=== PATIENT | male | born 1950 | race Caucasian/White ===

== ENCOUNTER 2021-01-28 08:37 | Outpatient (REF) | payer MEDICARE, SELFPAY ==
[2021-01-28 10:18] LABS: MANUAL DIFF FLAG NO
[2021-01-28 10:42] LABS: Basophils Percent Auto 0.7 % (0-2); Eosinophils Absolute Auto 0.1 X10*3/uL (0.0-0.4); Eosinophils Percent Auto 1.7 % (0-4); Hemoglobin 15.3 g/dl (14.0-18.0); Imm Gran Abs Auto 0.02 X10*3/uL (0.00-0.03); Imm Gran Pct Auto 0.4 % (0.0-0.4); Lymphocytes Absolute Auto 1.9 X10*3/uL (1.2-4.9); Lymphocytes Percent Auto 35.6 % (20-40); Mean Corpuscular HGB Conc 33.3 g/dl (31.0-36.0); Mean Corpuscular Hemoglobin 30.5 pg (27.0-33.0); Mean Corpuscular Volume 91.6 fL (80-98); Mean Platelet Volume 10.2 fL (9.4-12.4); Monocytes Absolute Auto 0.5 X10*3/uL (0.1-1.2); Monocytes Percent Auto 9.7 % (2-11); Neutrophils Absolute Auto 2.8 X10*3/uL (2.0-8.3); Neutrophils Percent Auto 51.9 % (45-73); Platelet Count 259 X10*3/uL (160-400); Red Blood Count 5.02 X10*6/uL (4.60-5.80); Red Cell Distribution Width 13.4 % (11.0-16.0); White Blood Count 5.4 X10*3/uL (4.8-10.8)
[2021-01-28 10:52] LABS: Alanine Aminotransferase 21 U/L (0-40); Albumin Level 4.7 g/dL (3.5-5.0); Alkaline Phosphatase 93 U/L (39-117); Anion Gap 14 (12-20); Aspartate Amino Transferase 23 U/L (5-37); Bilirubin Total 3.2 mg/dL (0.0-1.0); Blood Urea Nitrogen 11 mg/dL (9-16); Calcium 9.6 mg/dL (8.4-10.2); Carbon Dioxide 29 mmol/L (22-29); Chloride 102 mmol/L (96-108); Cholesterol 204 mg/dL; Estimated Glomerular Filt Rate > 60; Glucose Fasting 101 mg/dL (60-99); HDL Cholesterol 67 mg/dL; LDL Cholesterol Calculated 117 mg/dl; Potassium 4.3 mmol/L (3.3-5.1); Sodium 141 mmol/L (135-145); Total Protein 7.2 g/dL (6.5-8.0); Triglycerides 101 mg/dL
[2021-01-28 11:13] LABS: Prostate Specific Antigen 1.64 ng/mL (<0.05-4.0); Thyroid Stimulating Hormone 9.12 uIU/mL (0.32-4.0)
== END 2021-01-28 08:38 | disposition home or self-care (01) ==
LOC: HO.LAB 08:37
PROVIDERS: PCP Internal Medicine; Visit Provider Internal Medicine
DX: E78.5 Hyperlipidemia, unspecified (principal)
CPT/HCPCS: 36415; 80053; 80061; 84153; 84443; 85025

== ENCOUNTER 2021-02-25 09:51 | Outpatient (REF) | payer MEDICARE, SELFPAY ==
--- NOTE | ~2021-02-25 | XR_ITS ---
EXAMINATION: XR SHOULDER, RIGHT CLINICAL INFORMATION: Pain COMPARISON: None TECHNIQUE: AP external rotation, Grashey, scapular Y, and axillary views of the right shoulder. FINDINGS: Bone alignment is normal. No fracture or dislocation is seen. The glenohumeral joint is normal. There is arthritis at the acromioclavicular joint. Soft tissues are normal. XR/XR shoulder RT min 2V IMPRESSION: Arthritis at the acromioclavicular joint.
== END 2021-02-25 09:52 | disposition home or self-care (01) ==
LOC: HO.XRAY 09:51
PROVIDERS: PCP Internal Medicine; Visit Provider Internal Medicine
DX: M25.551 Pain in right hip (principal)
CPT/HCPCS: 73030

== ENCOUNTER 2021-05-09 10:00 | Outpatient (RCR) | payer MEDICARE, SELFPAY ==
--- NOTE | 2021-04-07 09:36 | MHC.PT.EP ---
[facility] [place] Office [place] Office [place] Office [address] [phone] F: [phone] F: [phone] F: [phone] F: [phone] Physical Therapy Plan of Care Date of Evaluation: Date of Surgery: Diagnosis: Pain in R shoulder Assessment: Pt is a 71 y/o male referred to PT for eval and treat of R shoulder pain who presents with signs and Sx consistent with R shoulder dysfunction resulting in decreased tolerance for reaching his neck neck for hygiene and dressing, pushing/ pulling objects of weight, dressing pull overs, and reaching high shelves secondary to decreased R shoulder ROM and strength, decreased posture, increased tissue tension and pain. Pt is deemed an appropriate candidate to receive skilled PT in order to address his physical limitations to improve his functional ability. Frequency and Duration: The patient will be seen 2 x / wk x 5 wks. Short Term Goals: Initiate HEP Improve R shoulder abd AROM to > 149 degrees; initial: 110. Prison Goals: I with HEP. Pt will demonstrate managed Sx placing objects on high shelf. Pt will improve R shoulder abd MMT to > 4/5 MMT. Pt will be able to reach his neck for hygiene and dressing with managed Sx; initial: 6/10 pain. Treatment Plan: Modalities to reduce pain, spasms and effusion. Manual therapy to restore motion and function. Therapeutic exercise to improve strength and flexibility. Neuromuscular re-education for posture and balance. Therapeutic activities to return to functional activities of daily living. Electronically signed by: Cezar Hess PT Please sign and return to therapist. Thank you for your referral.
--- NOTE | 2021-06-07 18:05 | MHC.PT.DC ---
[facility] [place] Office [place] Office [place] Office [address] [phone] F: [phone] F: [phone] F: [phone] F: [phone] Physical Therapy Discharge Report Diagnosis: Pain in R shoulder Date of Surgery: Date of Evaluation: 03/30/21 Date of Discharge: Treatments to Date: 10 Cancellations to Date: No Shows to Date: Discharge Status: Improved Function Independent with HEP Discharge Summary: Pt persists with decreased shoulder flexion but this improved with pulleys in flexion. Pt reports reaching behind his back and reaching into adduction are hard and painful. Reviewed exercises and educated on DC. Electronically signed by: Cezar Hess PT Please sign and return to therapist. Thank you for your referral.
== END 2021-06-07 18:06 | disposition home or self-care (01) ==
LOC: HO.PTCHIC 10:00
PROVIDERS: PCP Internal Medicine; Visit Provider Internal Medicine
DX: M25.511 Pain in right shoulder (principal)
CPT/HCPCS: 97110; 97140; 97161

== ENCOUNTER 2021-06-23 14:10 | Outpatient (REF) | payer MEDICARE, SELFPAY | END 2021-06-23 14:11 | disposition home or self-care (01) | LOC: HO.LNP 14:10 | PROVIDERS: Visit Provider Hospitalist | DX: Z20.822 Contact with and (suspected) exposure to COVID-19 (principal); J01.90 Acute sinusitis, unspecified | CPT/HCPCS: U0003; U0005 ==

== ENCOUNTER 2022-01-25 07:59 | Day surgery (SDC) | payer MEDICARE, SELFPAY ==
[2022-01-17 14:18] VITALS: BMI 23.6
--- NOTE | 2022-01-24 08:44 | P.CONAN_ITS ---
Documented by User: Ana Del Cid NP 01/24/22 08:44 HPI - Anesthesia Eval Consult details Narrative: 71yo M for Upper Endoscopy and Colonoscopy PMFSH Active Problems Active Problems: All Active Problems (Updated 01/17/22 @ 14:11 by Gena Kuhn RN) Hypertension (Acute) Hyperlipidemia (Acute) Adult general medical exam (Acute) Acute sinusitis (Acute) Screening for colon cancer (Acute) Hypothyroidism (Acute) Past Medical History Medical History Malagon's esophagus GERD (gastroesophageal reflux disease) History of kidney stones HTN (hypertension) Hyperlipidemia Hypothyroidism Screening for colon cancer Family History Family History Father Medical history unknown Mother Medical history unknown Family/Other Prostate cancer Colon polyps Surgical History Surgical History History of appendectomy History of colonoscopy History of inguinal hernia repair Hx of esophagogastroduodenoscopy Social History Social History Alcohol intake: current Alcohol intake frequency: a few times a month Patient Tobacco Use Status: Former Tobacco user Quit Date: 1993 Tobacco use type: Cigarette Use of substances other than those prescribed or required for medical reasons: No Are you DNR?: No Advance Directives: No Advance Directives Information Provided: Yes Meds Allergies Allergy/AdvReac Type Severity Reaction Status Date / Time lisinopril Allergy Unknown cough Verified 06/23/21 11:27 Exam Exam Date and Time: January 24, 2022 0844 Height,Weight and Vital Signs: Height 5 ft 10 in Weight 74.843 kg Assessment and Plan Assessment Anesthesia Assessment: Chart Reviewed Documented by User: Boone Haskins MD 01/25/22 10:11 HPI - Anesthesia Eval Consult details Narrative: 71yo M for Upper Endoscopy and Colonoscopy LAst night got nauseated and vomited from the prep . Called the EMS , felt better after the vomiting . As per the patient EMS checked the vitals which were stable . Asymptomatic after that . Feels back to baseline this AM . We will give IV fluids and proceed with the procedure . REPLACED BY [facility] Past Medical History Medical History Malagon's esophagus GERD (gastroesophageal reflux disease) History of kidney stones HTN (hypertension) Hyperlipidemia Hypothyroidism Screening for colon cancer Functional capacity: independent ambulation Family History Family History Father Medical history unknown Mother Medical history unknown Family/Other Prostate cancer Colon polyps Family history of problems with anesthesia: No Surgical History Surgical History History of appendectomy History of colonoscopy History of inguinal hernia repair Hx of esophagogastroduodenoscopy History of Problems with Anesthesia: No Social History Social History Alcohol intake: current Alcohol intake frequency: a few times a month Patient Tobacco Use Status: Former Tobacco user Quit Date: 1993 Tobacco use type: Cigarette Use of substances other than those prescribed or required for medical reasons: No Are you DNR?: No Advance Directives: No Advance Directives Information Provided: Yes Meds Allergies Allergy/AdvReac Type Severity Reaction Status Date / Time lisinopril Allergy Unknown cough Verified 06/23/21 11:27 Exam Airway Mallampati Class: II TM Dist: >3cm Neck ROM: Full Loose/Missing/Broken Teeth: Yes (Chipped teeth , crowns . ) Heart: S1, S2 Lungs: b/l breath sounds Assessment and Plan Assessment Anesthesia Assessment: Anesthesia Plan Discussed Final Anesthetic Review Family History of Problems with Anesthesia: No History of Problems with Anesthesia: No NPO: Yes ASA Class: II Final Preanesthetic Review: Meds/Allgs Chart Reviewed, Consent Obtained/Reviewed and Anes Risks/Benef Reviewed Patient Risk: Intermediate Procedure Risk: Intermediate Anesthetic Plan Anesthetic Plan: MAC: Disposition: Standard PACU
[2022-01-25 09:09] VITALS: BP 150/100; PULSE 88; RESP 16; TEMP 36.3; O2SAT 99; BMI 23.5
[2022-01-25] MEDS: Lactated Ringers 1,000 ML 100 ML IVCONT (09:15)
[2022-01-25 10:37] VITALS: BP 97/58; PULSE 73; RESP 16; TEMP 36.4; O2SAT 97
--- NOTE | 2022-01-25 10:39 | P.BOP_ITS ---
Brief Operative Note Date of Service: 01/25/22 Pre-op diagnosis: Malagon's, Screening Post-op diagnosis: other (Small hiatal hernia, Gastric polyps, Diverticulosis) Procedure: EGD with biopsies, Colonoscopy to the cecum and TI Surgeon: Jean-Pierre Mcelroy Anesthesia: MAC Was an [employer] Collision [employer] Instructor used for this Procedure?: No Estimated blood loss (mL): 2.0 Pathology: other (A. EG Junction at 38cm B. Gastric polyp) Condition: stable Disposition: PACU
[2022-01-25 10:52] VITALS: BP 126/73; PULSE 71; RESP 20; TEMP 37; O2SAT 97
--- NOTE | 2022-01-25 20:31 | OP_ITS ---
SURGEON: Jean-Pierre Mcelroy MD INDICATIONS: The patient presents for evaluation of gastroesophageal reflux and Malagon's esophagus, personal history of tubular adenoma of the colon, and colorectal cancer screening. Full consent was obtained from him for this, including risks of bleeding and perforation. PREOPERATIVE DIAGNOSIS: POSTOPERATIVE DIAGNOSIS: PROCEDURE PERFORMED: Esophagogastroduodenoscopy with biopsies, and colonoscopy to the cecum and terminal ileum. ESTIMATED BLOOD LOSS: COMPLICATIONS: ANESTHESIA: Monitored anesthesia care. ASSISTANTS: SPECIMENS: PREOPERATIVE DIAGNOSES: History of Malagon's esophagus and personal history of tubular adenomas of the colon, colorectal cancer screening. POSTOPERATIVE DIAGNOSES: History of Malagon's esophagus and personal history of tubular adenomas of the colon, colorectal cancer screening, small hiatal hernia, gastric polyps, diverticulosis and internal hemorrhoids. DESCRIPTION OF PROCEDURE: The patient was placed in the left lateral decubitus position. The Olympus video gastroscope was passed in the posterior oropharynx and upper esophagus under direct vision. The scope was passed slowly to the distal esophagus. The gastroesophageal junction appeared at 38 cm. This area appeared slightly irregular with a less than 1 cm small patch of Malagon's appearing mucosa. There was no esophagitis, ulceration, nor mass. The scope entered into the stomach. There was a small hiatal hernia. The scope was advanced to the pylorus and the was cannulated to the descending portion. The duodenum including the bulb appeared normal without mass or ulceration. The scope was withdrawn back into the stomach. The gastric antrum and body appeared normal with good peristalsis. The scope was retroflexed visualizing the proximal stomach carefully, which appeared normal, without mass or ulceration, other than some hyperplastic polyps. One of these was biopsied twice. The scope was withdrawn back into the esophagus. Biopsies were obtained at the EG junction at 38 cm. Proximal to this, the esophageal mucosa appeared normal. The scope was withdrawn from the patient. He was turned around for the colonoscopy. The digital rectal exam revealed no abnormalities. The Olympus video pediatric colonoscope was entered into the rectum and advanced easily to the cecum. Once in the cecum, I did identify normal-appearing cecal pouch with appendiceal orifice and a normal-appearing ileocecal valve. The terminal ileum was cannulated and appeared normal. The scope was withdrawn back into the colon. The entire cecum and ileocecal valve appeared normal. The scope was slowly withdrawn assessing all mucosal surfaces carefully. Preparation was excellent. I did not visualize any sign of polyps, colitis, or angiodysplasia. There was a mild amount of sigmoid diverticulosis. In the rectum, scope was retroflexed visualizing internal hemorrhoids, but no other pathology. The rectal mucosa appeared normal. The scope was straightened and withdrawn from the patient. He tolerated the procedures well and was returned to recovery area in stable condition. IMPRESSION: 1. Small hiatal hernia, gastroesophageal reflux, history of Malagon's esophagus. 2. Gastric polyps. 3. Diverticulosis. 4. Internal hemorrhoids. PLAN: The results of the biopsies will be checked. Assuming there is no dysplasia in the Malagon's esophagus, I would recommend a repeat upper endoscopy and colonoscopy in 5 years. I do not think the upper endoscopy needs to be done sooner given the minimal nature of the Malagon's esophagus. He will continue famotidine for symptomatic relief of reflux. He was advised to see me again otherwise on a p.r.n. basis. MD RENE Singh/ANDREW / [id number]
== END 2022-01-25 11:38 | disposition home or self-care (01) ==
PROVIDERS: PCP Internal Medicine; Visit Provider Internal Medicine
PROC: (CPT 43239; principal; 2022-01-25 09:10)
DX: Z12.11 Encounter for screening for malignant neoplasm of colon (principal); Z86.010 Personal history of colon polyps; K57.30 Diverticulosis of large intestine without perforation or abscess without bleeding; K64.8 Other hemorrhoids; K22.70 Barrett's esophagus without dysplasia; K21.9 Gastro-esophageal reflux disease without esophagitis; K44.9 Diaphragmatic hernia without obstruction or gangrene; K31.7 Polyp of stomach and duodenum; Z79.899 Other long term (current) drug therapy; Z88.8 Allergy status to other drugs, medicaments and biological substances
CPT/HCPCS: 43239; G0105; 88305; 88342; J3010

== ENCOUNTER 2022-05-05 08:00 | Outpatient (RCR) | payer MEDICARE, SELFPAY ==
--- NOTE | 2022-04-07 13:15 | MHC.PT.EP ---
[facility] [place] Office [place] Office [place] Office [address] [phone] F: [phone] F: [phone] F: [phone] F: [phone] Physical Therapy Plan of Care Date of Evaluation: Date of Surgery: n/a Diagnosis: low back pain Assessment: Patient is a 72 year old male presenting to PT with complaints of pain in his low back extending down his L posterior leg. Pt reports onset of pain began originally about 2 years ago due to putting in a basketball court at his house. He presents today with impairments in pain, pins and needles, hip strength, core strength, and posture. Pt's current occupation is retired but enjoys golfing and playing basketball leisurely, with baseline physical activities including basketball, golf, bending, lifting. 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 Clinical presentation today is most consistent with signs and sx associated with back pain with radicular sx and pt will benefit from skilled PT to address the following problems and impairments noted upon evaluation: pain, pins and needles, hip strength, core strength, and posture. These problems limit the patient with the following functional activities: bending, lifting, golf. The prescribed treatment plan of care is medically necessary. Co-morbidities of HTN were identified and taken into considerations of plan of care. Pt was educated on HEP, role of PT, prognosis, POC. Frequency and Duration: The patient will be seen 2 x week x 5 weeks Short Term Goals: Pt will demonstrate improved hip strength by 1/3 MMT for improved lumbopelvic stability in 3 weeks. Pt will demonstrate ability to perform PPT with min to no cues in 3 weeks for improved core strength. Pt will demonstrate centralization of sx in 3 weeks for improved QOL. Long-Term Goals: Pt will demonstrate improved José Miguel score by 10% for improved functional mobility in 5 weeks. Pt will demonstrate ability to bend with min to no pain or sx in 5 weeks for return to PLOF. Pt will demonstrate ability to lift 20# with min to no pain or sx in 5 weeks for improved ability to complete yard work and household duties. Treatment Plan: Modalities to reduce pain, spasms and effusion. Manual therapy to restore motion and function. Therapeutic exercise to improve strength and flexibility. Neuromuscular re-education for posture and balance. Therapeutic activities to return to functional activities of daily living. Electronically signed by: Jenny Moreira, PT, DPT, ATC Please sign and return to therapist. Thank you for your referral.
--- NOTE | 2022-05-05 08:57 | MHC.PT.DC ---
[facility] [place] Office [place] Office [place] Office [address] [phone] F: [phone] F: [phone] F: [phone] F: [phone] Physical Therapy Discharge Report Diagnosis: low back pain Date of Surgery: n/a Date of Evaluation: 04/07/22 Date of Discharge: 05/05/22 Treatments to Date: 9 Cancellations to Date: 0 No Shows to Date: 0 Discharge Status: Improved Function Independent with HEP Discharge Summary: Pt has made progress since beginning skilled PT and feels ready to continue on his own at this point. He still has worsening of pain when doing certain activities that are more intense like yard work. Pain and sx are often relieved with prone lying. Discussed with pt continued compliance with home program for maintenance and further progression with sx and advised if sx begin to limit him functionally then to follow up with referring provder. Pt understanding of this. Max benefits of PT have been provided and skilled PT is no longer indicated at this time. Pt in agreement with d/c today. Electronically signed by: Jenny Moreira, PT, DPT, ATC Please sign and return to therapist. Thank you for your referral.
== END 2022-05-05 08:57 | disposition home or self-care (01) ==
LOC: HO.PTCHIC 08:00
PROVIDERS: PCP Internal Medicine; Visit Provider Nurse Practitioner Family
DX: M54.50 Low back pain, unspecified (principal)
CPT/HCPCS: 97110; 97140; 97161; 97530

== ENCOUNTER 2022-05-11 08:03 | Outpatient (REF) | payer MEDICARE, SELFPAY ==
[2022-05-11 08:50] LABS: Anion Gap 16 (12-20); Blood Urea Nitrogen 13 mg/dL (9-16); Calcium 9.3 mg/dL (8.4-10.2); Carbon Dioxide 26 mmol/L (22-29); Chloride 106 mmol/L (96-108); Estimated Glomerular Filt Rate > 60; Glucose Fasting 106 mg/dL (60-99); Potassium 4.5 mmol/L (3.3-5.1); Sodium 143 mmol/L (135-145)
[2022-05-11 09:12] LABS: Prostate Specific Antigen 1.63 ng/mL (<0.05-4.0)
== END 2022-05-11 08:04 | disposition home or self-care (01) ==
LOC: HO.LAB 08:03
PROVIDERS: PCP Internal Medicine; Visit Provider Nurse Practitioner Family
DX: Z12.5 Encounter for screening for malignant neoplasm of prostate (principal); Z13.1 Encounter for screening for diabetes mellitus
CPT/HCPCS: 36415; 80048; 84153

== ENCOUNTER 2022-05-15 09:26 | Outpatient (REF) | payer MEDICARE, SELFPAY ==
[2022-05-15 10:22] LABS: Estimated Average Glucose 117 mg/dL; Hemoglobin A1C 149.2692 umol/L; Hemoglobin A1c % 5.7 %
[2022-05-15 10:45] LABS: Cholesterol 218 mg/dL; HDL Cholesterol 65 mg/dL; LDL Cholesterol Calculated 130 mg/dl; Triglycerides 117 mg/dL
[2022-05-15 11:10] LABS: Thyroid Stimulating Hormone 0.78 uIU/mL (0.32-4.0)
== END 2022-05-15 09:27 | disposition home or self-care (01) ==
LOC: HO.LAB 09:26
PROVIDERS: Absent Provider Internal Medicine; PCP Internal Medicine; Visit Provider Nurse Practitioner Family
DX: E03.9 Hypothyroidism, unspecified (principal); R73.01 Impaired fasting glucose; E78.5 Hyperlipidemia, unspecified
CPT/HCPCS: 36415; 80061; 83036; 84443

== ENCOUNTER 2022-11-16 09:01 | Outpatient (REF) | payer MEDICARE, SELFPAY ==
[2022-11-16 09:16] LABS: MANUAL DIFF FLAG NO
[2022-11-16 09:50] LABS: Basophils Absolute Auto 0.1 X10*3/uL (0.0-0.2); Basophils Percent Auto 1.2 % (0-2); Eosinophils Absolute Auto 0.1 X10*3/uL (0.0-0.4); Eosinophils Percent Auto 1.7 % (0-4); Hematocrit 45.9 % (42.0-52.0); Hemoglobin 15.4 g/dl (14.0-18.0); Imm Gran Abs Auto 0.02 X10*3/uL (0.00-0.03); Imm Gran Pct Auto 0.3 % (0.0-0.4); Lymphocytes Absolute Auto 1.8 X10*3/uL (1.2-4.9); Mean Corpuscular HGB Conc 33.6 g/dl (31.0-36.0); Mean Corpuscular Hemoglobin 30.5 pg (27.0-33.0); Mean Corpuscular Volume 90.9 fL (80.0-98.0); Monocytes Absolute Auto 0.6 X10*3/uL (0.1-1.2); Neutrophils Absolute Auto 3.2 x10*3/uL (2.0-8.3); Neutrophils Percent Auto 55.8 % (45-73); Platelet Count 269 X10*3/uL (160-400); Red Blood Count 5.05 X10*6/uL (4.60-5.80); Red Cell Distribution Width 13.5 % (11.0-16.0); White Blood Count 5.8 X10*3/uL (4.8-10.8)
[2022-11-16 10:59] LABS: Alanine Aminotransferase 24 U/L (0-40); Albumin Level 4.6 g/dL (3.5-5.0); Alkaline Phosphatase 82 U/L (39-117); Anion Gap 15 (12-20); Aspartate Amino Transferase 20 U/L (5-37); Bilirubin Total 2.9 mg/dL (0.0-1.0); Blood Urea Nitrogen 12 mg/dL (9-16); Calcium 9.7 mg/dL (8.4-10.2); Carbon Dioxide 28 mmol/L (22-29); Chloride 104 mmol/L (96-108); Cholesterol 223 mg/dL; Estimated Glomerular Filt Rate > 60; Glucose Fasting 93 mg/dL (60-99); HDL Cholesterol 75 mg/dL; LDL Cholesterol Calculated 119 mg/dl; Potassium 4.8 mmol/L (3.3-5.1); Sodium 142 mmol/L (135-145); Triglycerides 146 mg/dL
[2022-11-16 11:20] LABS: Prostate Specific Antigen Scr 1.72 ng/mL (<0.05-4.0); Thyroid Stimulating Hormone 3.03 uIU/mL (0.32-4.0)
== END 2022-11-16 09:02 | disposition home or self-care (01) ==
LOC: HO.LAB 09:01
PROVIDERS: PCP Internal Medicine; Visit Provider Internal Medicine
DX: Z00.00 Encounter for general adult medical examination without abnormal findings (principal); Z12.5 Encounter for screening for malignant neoplasm of prostate; E03.9 Hypothyroidism, unspecified; N28.9 Disorder of kidney and ureter, unspecified; D64.9 Anemia, unspecified; E78.5 Hyperlipidemia, unspecified
CPT/HCPCS: 36415; 80053; 80061; 84153; 84443; 85025

== ENCOUNTER 2023-04-19 09:31 | Outpatient (AMB) | payer MEDICARE, SELFPAY ==
[2023-04-19 09:32] VITALS: BP 132/80; PULSE 82; O2SAT 98; BMI 23.4
--- NOTE | 2023-04-19 09:32 | A.OFFVIS_ITS ---
Intake Vital Signs 04/19/23 09:32 Height 5 ft 10 in Weight 163 lb BMI 23.4 BP 132/80 Blood Pressure Location Lt brachial Position Sitting Pulse 82 Pulse Source Pulse Oximeter Temp Source Skin Pulse Oximetry (%) 98 Oxygen Delivery Method Room Air Intake Visit Reasons: SAWV Intake Note: Patient is here for an Annual Wellness Visit. 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 Patient of Dr. Munoz. Patient is up-to-date with his health preventative screenings. Patient reports history of tetanus vaccine within the last 10 years. [place] of care was reviewed with the patient and he was provided with a screening schedule.? End of life planning was discussed with the patient and he was provided with healthcare proxy and MOLST forms.? [facility] Medical History Acute sinusitis Amlagon's esophagus GERD (gastroesophageal reflux disease) History of kidney stones HTN (hypertension) Hyperlipidemia Hypothyroidism Screening for colon cancer Surgical History History of appendectomy History of colonoscopy History of inguinal hernia repair Hx of esophagogastroduodenoscopy Family History Father Medical history unknown Mother Medical history unknown Family/Other Prostate cancer Colon polyps Social History Housing: House Alcohol intake: current Alcohol intake frequency: a few times a month Patient Tobacco Use Status: Former Tobacco user Quit Date: 1993 Tobacco use type: Cigarette e-Cigarette/Vaping Use: Never Used Second Hand Smoke Exposure: No service: No Current occupational status: retired Cognitive needs: No Hearing needs: No Vision needs: Yes Questionnaire Medicare Wellness Checkup [age] What gender do you identify with?: male During the past 4 weeks, how much have you been bothered by emotional problems such as feeling anxious, depressed, irritable, sad or downhearted, and blue?: not at all During the past 4 weeks, has your physical & emotional health limited your social activities with family, friends, neighbors, or groups?: not at all During the past 4 weeks, how much bodily pain have you generally had?: mild pain During the past 4 weeks, was someone available to help you if you needed & wanted help?: yes, as much as I wanted During the past 4 weeks, what was the hardest physical activity you could do for at least 2 minutes?: moderate Can you get to places out of walking distance without help? (For eg., can you travel alone on buses, taxis or drive your car?): Yes Can you go shopping for groceries or clothes without someone's help?: Yes Can you prepare your own meals?: Yes Can you do your housework without help?: Yes Because of any health problems, do you need the help of another person with your personal care needs such as eating, bathing, dressing or getting around the house?: No Can you handle your own money without help?: Yes During the past 4 weeks, how would you rate your health in general?: very good During the past 4 weeks how have things been going for you?: pretty well Are you having difficulties driving your car?: no Do you always fasten your seat belt when you are in a car?: yes, usually During past 4 weeks, have you been bothered by the following: never: Falling or dizzy when standing up, Trouble eating well?, Teeth or denture problems? and Problems using the telephone? and seldom: Tiredness or fatigue? Have you fallen 2 or more times in the past year?: No Are you afraid of falling?: No Are you a smoker?: no During the past 4 weeks, how many drinks of wine, beer, or other alcoholic beverages did you have?: 1 drink or less per week Do you exercise for about 20 minutes 3 or more times a week?: no, I usually do not exercise this much Have you been given information to help with the following?: yes: Keeping track of your medications? and no: Hazards in your house that might hurt you? How often do you have trouble taking medicines the way you have been told to take them?: I always take medicine as prescribed How confident are you that you can control & manage most of your health problems?: very confident What is your race?: White Mini Mental State Exam (MMSE) Orientation What is the (year) (season) (date) (day) (month)?: year, season, date, day and month Score Score: 5 Activity of Daily Living Bathing - sponge bath, tub bath or shower: receives no assistance (gets in/out by self, if usual bathing means Dressing - getting clothes from closets & drawers, including inner/outer garments & fasteners.: gets clothes & gets completely dressed without help Toileting - going to the 'toilet room' for urine/bowel elimination & cleaning self/arranging clothes: goes to toilet room, cleans self, arranges clothes without help Transfer: moves in & out of bed and chair without help (may use support object) Continence: controls urination/bowel movements completely by self Feeding: feeds self without help Total Score: 0 Information obtained from: patient Using telephone: independent Traveling: independent Shopping: independent Preparing meals: independent Housework: independent Taking medicine: independent Managing money: independent PHQ-9 Over the last 2 weeks, how often have you been bothered by any of the following problems? 1. Little interest or pleasure in doing things: not at all 2. Feeling down, depressed, or hopeless: not at all 3. Trouble falling or staying asleep, or sleeping too much: not at all 4. Feeling tired or having little energy: not at all 5. Poor appetite or overeating: not at all 6. Feeling bad about yourself - or that you are a failure or have let yourself or your family down: not at all 7. Trouble concentrating on things, such as reading the newspaper or watching television: not at all 8. Moving or speaking so slowly that other people could have noticed. Or the opposite - being so fidgety or restless that you have been moving around a lot more than usual: not at all 9. Thoughts that you would be better off or of hurting yourself in some way: not at all Total score: 0 Depression Screening Interpretation: Negative 87793 - PHQ-9 Billing: Yes Source: Developed by Drs. Jean-Pierre Tilley, Julia David, Kalia Jimenez and colleagues, with an educational trey from [employer]. BLAISE-7 AMB Questionnaire BLAISE-7 Date BLAISE - 7 assessed: 04/19/23 Feeling nervous, anxious, or on edge: 0 = Not at all Not being able to stop or control worryin = Not at all Worrying too much about different things: 0 = Not at all Trouble relaxin = Not at all Being so restless that it is hard to sit still: 0 = Not at all Becoming easily annoyed or irritable: 0 = Not at all Feeling afraid as if something awful might happen: 0 = Not at all Total BLAISE-7 score (0-4 normal; 5-9 mild; 10-14 moderate; 15-21 severe): 0 Source: Developed by Drs. Jean-Pierre Tilley, Julia David, Kalia Jimenez and colleagues, with an educational trey from [employer]. BLAISE-7 Assessment Billing BLAISE-7 Assessment Tool: BLAISE-7 Assessment 19869 AUDIT C Alcohol Use Questionnaire (AUDIT-C) 1. How often do you have a drink containing alcohol?: Monthly or less 2. How many drinks containing alcohol do you have on a typical day when you are drinking?: 1 or 2 3. How often do you have six or more drinks on one occasion?: Never Total Score: 1 Score Reviewed/Action Taken: No Thrive Questionnaire Date Thrive assessed: 11/15/22 Physical Exam Vital Signs: Last Vital Signs Pulse 82 04/19/23 09:32 BP 132/80 04/19/23 09:32 Pulse Ox 98 04/19/23 09:32 Oxygen Delivery Method Room Air 04/19/23 09:32 BMI result Body Mass Index 23.4 Const General: cooperative and no acute distress Orientation/consciousness: patient oriented x3 HEENT Other: Whisper test: pass Neuro Other: Balance: Normal Get up and walk: able to Romberg: negative Tandem gait: able to General: patient oriented x3 Assessment & Plan Assessment & Plan (1) Hypertension: Code(s): I10 - Essential (primary) hypertension Qualifiers: Hypertension type: unspecified Qualified Code(s): I10 - Essential (primary) hypertension Plan: Amlodipine 5 mg daily Low-salt diet (2) Hyperlipidemia: Code(s): E78.5 - Hyperlipidemia, unspecified Qualifiers: Hyperlipidemia type: unspecified Qualified Code(s): E78.5 - Hyperlipidemia, unspecified Plan: Atorvastatin 10 mg daily Low-cholesterol diet (3) Adult general medical exam: Code(s): Z00.00 - Encounter for general adult medical examination without abnormal findings (4) Hypothyroidism: Comment: 20 min reviewing chart eval patient and documenting Code(s): E03.9 - Hypothyroidism, unspecified Qualifiers: Hypothyroidism type: unspecified Qualified Code(s): E03.9 - Hypothyroidism, unspecified Plan: Levothyroxine 100 mcg daily Quality Reporting (2019) Fall Risk Screening ([facility] 139) Last assessed Fall Risk: 04/19/23 Fall risk assessment: No Falls in past year Depression/Bipolar (159/160/161/177) PHQ-9: Total score: 0 Coding Level of Care Code Medicare Subsequent (G0439) Diagnoses Hypertension I10 Hypertension type: unspecified Hyperlipidemia E78.5 Hyperlipidemia type: unspecified Adult general medical exam Z00.00 Hypothyroidism E03.9 Hypothyroidism type: unspecified CPT Codes Advance Care Planning - Time spent: 1-15 minutes, not on file ([id number]) Additional Codes BLAISE-7 Assessment Billing - BLAISE-7 Assessment Tool: BLAISE-7 Assessment 42093 ([id number]) Advance Care Planning Date of discussion: 04/19/23 Who was present: pt and security officer Forms completed: None Time spent: 1-15 minutes, not on file Actual minutes spent: 2 Did not discuss due to Cultural/Spiritual beliefs: No
== END 2023-04-19 10:03 | disposition home or self-care (01) ==
PROVIDERS: PCP Internal Medicine; Visit Provider Nurse Practitioner Family
DX: I10 Essential (primary) hypertension (principal); E78.5 Hyperlipidemia, unspecified; Z00.00 Encounter for general adult medical examination without abnormal findings; E03.9 Hypothyroidism, unspecified; Z71.89 Other specified counseling
CPT/HCPCS: 1124F; G0439

== ENCOUNTER 2023-05-21 14:05 | Outpatient (AMB) | payer MEDICARE, SELFPAY ==
--- NOTE | 2023-05-21 15:08 | MHC.OFFWIV ---
Intake Vital Signs 05/21/23 15:10 Weight 166 lb BP 120/80 Blood Pressure Location Rt brachial Position Sitting Pulse 78 Pulse Source Pulse Oximeter Pulse Oximetry (%) 97 Intake Visit Reasons: EP ?rash on both legs [phone] Intake Note: Patient here for rash on both legs, he states he was out golfing and was in some high grass and now has some red spots/ rash like. Patient Tobacco Use Status: Former Tobacco user Quit Date: quit 1993 Allergies lisinopril Allergy (Unknown, Verified 05/21/23 15:38) cough Medication List - Last Reconciled 05/21/23 by Lanre Romano MD amlodipine 5 mg PO ONCE atorvastatin 10 mg PO DAILY famotidine 20 mg PO DAILY levothyroxine 100 mcg PO DAILY Do you need a note to return to daycare/school/sports/work: No HPI EP ?rash on both legs [phone] HPI Details 73-year-old male presents to the office for a sick visit. Patient has noticed a rash on both his lower legs. Symptoms started in the last 24 hours. 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 [facility], [facility] Medical History Acute sinusitis Malagon's esophagus GERD (gastroesophageal reflux disease) History of kidney stones HTN (hypertension) Hyperlipidemia Hypothyroidism Screening for colon cancer Surgical History History of appendectomy History of colonoscopy History of inguinal hernia repair Hx of esophagogastroduodenoscopy Family History Father Medical history unknown Mother Medical history unknown Family/Other Prostate cancer Colon polyps Social History Housing: House Alcohol intake: current Alcohol intake frequency: a few times a month Patient Tobacco Use Status: Former Tobacco user Quit Date: quit 1993 Tobacco use type: Cigarette e-Cigarette/Vaping Use: Never Used Second Hand Smoke Exposure: No service: No Current occupational status: retired Cognitive needs: No Hearing needs: No Vision needs: Yes Physical Exam Vital Signs: Last Vital Signs Pulse 78 05/21/23 15:10 BP 120/80 05/21/23 15:10 Pulse Ox 97 05/21/23 15:10 Extrem Other: Right and left leg: Erythematous lesion around and above the ankle. No vesicles seen. Few papules seen scattered. Assessment & Plan Assessment & Plan (1) Allergic dermatitis: Code(s): L23.9 - Allergic contact dermatitis, unspecified cause Plan: Prednisone for 3 days given. If symptoms do not improve to follow-up here. Coding Level of Care Code Est Pt Level 3 (21476) Diagnoses Allergic dermatitis L23.9
[2023-05-21 15:10] VITALS: BP 120/80; PULSE 78; O2SAT 97
== END 2023-05-21 15:42 | disposition home or self-care (01) ==
PROVIDERS: PCP Internal Medicine; Visit Provider Internal Medicine
DX: L23.9 Allergic contact dermatitis, unspecified cause (principal)
CPT/HCPCS: 99213

== ENCOUNTER 2023-09-12 14:09 | Outpatient (AMB) | payer MEDICARE, SELFPAY ==
[2023-09-12 14:18] VITALS: BP 150/90; PULSE 83; O2SAT 99; BMI 24.1
--- NOTE | 2023-09-12 14:18 | A.OFFPC_ITS ---
Vital Signs 09/12/23 14:18 Height 5 ft 10 in Weight 168 lb BMI 24.1 BP 150/90 H Blood Pressure Location Lt brachial Position Sitting Pulse 83 Pulse Source Pulse Oximeter Pulse Oximetry (%) 99 Oxygen Delivery Method Room Air Intake Visit Reasons: Sciatica pain Hebrew Teacher Required: No Technical Architect: Not Required per policy Accompanied by: Self / Same As Patient Allergies lisinopril Allergy (Unknown, Verified 09/12/23 14:18) cough Medication List - Last Reconciled 09/13/23 by Ej Munoz MD amlodipine 5 mg PO ONCE atorvastatin 10 mg PO DAILY famotidine 20 mg PO DAILY levothyroxine 100 mcg PO DAILY methylprednisolone (Medrol (Damon)) PO PER PKG DIR naproxen (Naprosyn) 500 mg PO BID PRN Tobacco use date assessed: 11/15/22 Fall risk assessment: No Falls in past year Last assessed Fall Risk: 09/12/23 Dental Screening Dental Screen Date: 09/12/23 Did you have a dental visit in the last 12 months?: Yes Did you have a dental problem in the last 6 months where you did not have access to dental care?: No Was dental information given to patient?: Patient has dentist HPI Sciatica pain HPI Details back pain radiating down right leg PFSH Medical History History of kidney stones HTN (hypertension) Hyperlipidemia GERD (gastroesophageal reflux disease) Malagon's esophagus Acute sinusitis Screening for colon cancer Hypothyroidism Surgical History Hx of esophagogastroduodenoscopy History of colonoscopy History of inguinal hernia repair History of appendectomy Family History Father Medical history unknown Mother Medical history unknown Family/Other Prostate cancer Colon polyps Social History Housing: House Alcohol intake: current Alcohol intake frequency: a few times a month Patient Tobacco Use Status: Former Tobacco user Quit Date: 1993 Tobacco use type: Cigarette e-Cigarette/Vaping Use: Never Used Second Hand Smoke Exposure: No service: No Current occupational status: retired Cognitive needs: No Hearing needs: No Vision needs: Yes Questionnaire PHQ-9 Over the last 2 weeks, how often have you been bothered by any of the following problems? 1. Little interest or pleasure in doing things: not at all 2. Feeling down, depressed, or hopeless: not at all 3. Trouble falling or staying asleep, or sleeping too much: not at all 4. Feeling tired or having little energy: not at all 5. Poor appetite or overeating: not at all 6. Feeling bad about yourself - or that you are a failure or have let yourself or your family down: not at all 7. Trouble concentrating on things, such as reading the newspaper or watching television: not at all 8. Moving or speaking so slowly that other people could have noticed. Or the opposite - being so fidgety or restless that you have been moving around a lot more than usual: not at all 9. Thoughts that you would be better off or of hurting yourself in some wa y: not at all Total score: 0 Depression Screening Interpretation: Negative Depression Screening Done: Yes 63132 - PHQ-9 Billing: Yes Source: Developed by Drs. Jean-Pierre Tilley, Kalia Torres and colleagues, with an educational trey from [employer]. Thrive Questionnaire Date Thrive assessed: 11/15/22 AUDIT C Alcohol Use Questionnaire (AUDIT-C) 1. How often do you have a drink containing alcohol?: Monthly or less 2. How many drinks containing alcohol do you have on a typical day when you are drinking?: 1 or 2 3. How often do you have six or more drinks on one occasion?: Never Total Score: 1 Score Reviewed/Action Taken: No BLAISE-7 AMB Questionnaire BLAISE-7 Date BLAISE - 7 assessed: 04/19/23 Source: Developed by Drs. Jean-Pierre Tilley, Kalia Torres and colleagues, with an educational trey from [employer]. Review of Systems Const Denies chills, Denies headache(s) and Denies weight loss ENT Denies headache(s) Card Denies chest pain, Denies syncope, Denies irregular heart rhythm and Denies dyspnea Resp Denies chest congestion, Denies cough and Denies dyspnea GI Denies abdominal pain, Denies change in stool character, Denies nausea and Denies vomiting Musc Denies deformity and Denies joint swelling Neuro Denies syncope and Denies headache(s) Physical exam (Primary Care) Vital Signs: Last Vital Signs Pulse 83 09/12/23 14:18 BP 150/90 H 09/12/23 14:18 Pulse Ox 99 09/12/23 14:18 Oxygen Delivery Method Room Air 09/12/23 14:18 BMI result Body Mass Index 24.1 Tobacco/Smoking Status: Tobacco use Status Tobacco use date assessed 11/15/22 09/12/23 14:23 Patient Tobacco Use Status Former Tobacco user 09/12/23 14:23 Tobacco use type Cigarette 09/12/23 14:23 e-Cigarette/Vaping Use Never Used 09/12/23 14:23 PHQ-9: PHQ-9 Score PHQ-9: Total score 0 09/12/23 14:30 Depression Screening Interpretation: Negative Thrive Assessment: Date of Thrive Assessment Date Thrive assessed 11/15/22 09/12/23 14:23 Const General: cooperative, comfortable, no acute distress and alert Neck Neck: Yes no lymphadenopathy Thyroid: Thyroid normal Resp Effort & Inspection: normal respiratory effort Auscultation: clear to auscultation bilaterally Percussion: percussion normal Cardio Jugular venous distension: no JVD Palpation: normal PMI Rate: regular rate Rhythm: regular rhythm Heart sounds: S1 normal heart sound present and S2 normal heart sound present GI Inspection: Yes normal to inspection Palpation (GI): No hepatosplenomegaly present Skin General skin exam: no rashes or lesions noted Extrem General: Yes no clubbing, cyanosis or edema Assessment and Plan Assessment & Plan (1) Sciatica: Code(s): M54.30 - Sciatica, unspecified side Plan: rx Orders: Orders US abdomen complete 09/12/23 R10.9 - Unspecified abdominal pain Referrals Speech and Hearing Referral H91.90 - Unspecified hearing loss, unspecified ear Medications: New naproxen (Naprosyn) 500 mg PO BID PRN 60 tabs 0RF pain methylprednisolone (Medrol (Damon)) PO PER PKG DIR 21 ea 0RF Coding Level of Care Code Est Pt Level 3 (32855) Diagnoses Sciatica M54.30
== END 2023-09-12 14:35 | disposition home or self-care (01) ==
PROVIDERS: PCP Internal Medicine; Visit Provider Internal Medicine
DX: M54.30 Sciatica, unspecified side (principal)
CPT/HCPCS: 99213

== ENCOUNTER 2023-10-16 07:46 | Outpatient (REF) | payer MEDICARE, SELFPAY ==
--- NOTE | ~2023-10-16 | US_ITS ---
EXAMINATION: US ABDOMEN COMPLETE CLINICAL INFORMATION: Abdominal pain. COMPARISON: Renal ultrasound 12/10/2019,, CT scan 11/19/2017, abdominal ultrasound 10/09/2017, HIDA scan 01/31/2018 TECHNIQUE: Real-time imaging of the abdominal viscera. FINDINGS: PANCREAS: Normal. ABDOMINAL AORTA: The proximal and distal segments are normal in caliber. The mid abdominal aorta is partly obscured by bowel gas. INFERIOR VENA CAVA: Visualized portions are normal. LIVER: The liver is normal in size. The liver contour is normal. There is diffuse increased liver parenchymal echogenicity, consistent with hepatic steatosis. 6.6 x 6.8 x 7.1 cm simple avascular cyst in the right lobe of the liver measured 4.0 x 4.[address] scan of the abdomen and pelvis 11/19/2017. Difference in size is of doubtful clinical significance. There is no intrahepatic biliary duct dilatation seen. GALLBLADDER: Normal. The gallbladder is physiologically distended without evidence of stones, sludge, polyps, wall thickening or pericholecystic fluid. COMMON BILE DUCT: Normal in caliber measuring 0.5 cm in diameter. RIGHT KIDNEY: There is minimal hydronephrosis versus parapelvic cysts. Extrarenal pelvis is noted. No renal calculi or focal parenchymal lesions. The kidney measures 11.7 cm in maximum dimension. LEFT KIDNEY: There is mild nephrosis versus parapelvic cysts.. No renal calculi or focal parenchymal lesions. The kidney measures 13.5 cm in maximum dimension. SPLEEN: Normal. The spleen measures 8.9 cm in maximum dimension. FREE FLUID: None. US/US abdomen complete IMPRESSION: 1. Hepatic steatosis. 2. 7.1 cm simple avascular cyst in the right lobe of the liver. 3. Minimal right hydronephrosis and mild left hydronephrosis versus parapelvic cysts.
== END 2023-10-16 07:47 | disposition home or self-care (01) ==
LOC: HO.US 07:46
PROVIDERS: PCP Internal Medicine; Visit Provider Internal Medicine
DX: R10.9 Unspecified abdominal pain (principal)
CPT/HCPCS: 76700

== ENCOUNTER 2023-10-17 08:17 | Outpatient (AMB) | payer MEDICARE, SELFPAY ==
[2023-10-17 08:21] VITALS: BP 134/82; PULSE 87; O2SAT 97; BMI 24.0
--- NOTE | 2023-10-17 08:21 | MHC.PC.OV ---
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 Accompanied by: Self / Same As Patient Allergies lisinopril Allergy (Unknown, Verified 10/17/23 08:21) cough Medication List - Last Reconciled 10/17/23 by Ej Munoz MD amlodipine 5 mg PO ONCE atorvastatin 10 mg PO DAILY famotidine 20 mg PO DAILY levothyroxine 100 mcg PO DAILY naproxen (Naprosyn) 500 mg PO BID PRN Tobacco use date assessed: 10/17/23 Fall risk assessment: 1 Fall in past year Last assessed Fall Risk: 10/17/23 Dental Screening Dental Screen Date: 10/17/23 Did you have a dental visit in the last 12 months?: Yes Did you have a dental problem in the last 6 months where you did not have access to dental care?: No Was dental information given to patient?: Patient has dentist HPI 6 month f/u HPI Details HTN hyperlipidemia and hypothyroidism on rx; doing well and compliant [facility] Medical History History of kidney stones HTN (hypertension) Hyperlipidemia GERD (gastroesophageal reflux disease) Malagon's esophagus Acute sinusitis Screening for colon cancer Hypothyroidism Surgical History Hx of esophagogastroduodenoscopy History of colonoscopy History of inguinal hernia repair History of appendectomy Family History Father Medical history unknown Mother Medical history unknown Family/Other Prostate cancer Colon polyps Social History Housing: House Alcohol intake: current Alcohol intake frequency: a few times a month Patient Tobacco Use Status: Former Tobacco user Quit Date: 1993 Tobacco use type: Cigarette e-Cigarette/Vaping Use: Never Used Second Hand Smoke Exposure: No service: No Current occupational status: retired Cognitive needs: No Hearing needs: No Vision needs: Yes Questionnaire PHQ-9 Over the last 2 weeks, how often have you been bothered by any of the following problems? 1. Little interest or pleasure in doing things: not at all 2. Feeling down, depressed, or hopeless: not at all 3. Trouble falling or staying asleep, or sleeping too much: not at all 4. Feeling tired or having little energy: not at all 5. Poor appetite or overeating: not at all 6. Feeling bad about yourself - or that you are a failure or have let yourself or your family down: not at all 7. Trouble concentrating on things, such as reading the newspaper or watching television: not at all 8. Moving or speaking so slowly that other people could have noticed. Or the opposite - being so fidgety or restless that you have been moving around a lot more than usual: not at all 9. Thoughts that you would be better off or of hurting yourself in some way: not at all Total score: 0 Depression Screening Interpretation: Negative Depression Screening Done: Yes [id number] - PHQ-9 Billing: Yes Source: Developed by Drs. Jean-Pierre Tilley, Julia David, Kalia Jimenez and colleagues, with an educational trey from [employer]. Thrive Questionnaire Date Thrive assessed: 10/17/23 I am a: Patient What is your living situation today?: I have a steady place to live Within the past 12 months, did the food you bought not last and you didn't have the money to get more?: Never true Within the past 12 months, did you worry whether your food would run out before you got money to buy more?: Never true Do you have trouble paying for medicines?: No Do you have trouble getting transportation to medical appointments?: No Do you have trouble paying your heating and electricity bill?: No Do you have trouble taking care of your child, family member or friend?: No Do you have trouble with day-to-day activities such as bathing, preparing meals, shopping, managing finances, etc.?: No Are you currently unemployed and looking for a job?: No Are you interested in more education?: No Please select the resources that you would like help with: None Currently or been in a relationship where the following occur: no concerns reported AUDIT C Alcohol Use Questionnaire (AUDIT-C) 1. How often do you have a drink containing alcohol?: Monthly or less 2. How many drinks containing alcohol do you have on a typical day when you are drinking?: 1 or 2 3. How often do you have six or more drinks on one occasion?: Never Total Score: 1 Score Reviewed/Action Taken: No BLAISE-7 AMB Questionnaire BLAISE-7 Date BLAISE - 7 assessed: 10/17/23 Feeling nervous, anxious, or on edge: 0 = Not at all Not being able to stop or control worryin = Not at all Worrying too much about different things: 0 = Not at all Trouble relaxin = Not at all Being so restless that it is hard to sit still: 0 = Not at all Becoming easily annoyed or irritable: 0 = Not at all Feeling afraid as if something awful might happen: 0 = Not at all Total BLAISE-7 score (0-4 normal; 5-9 mild; 10-14 moderate; 15-21 severe): 0 Source: Developed by Drs. Jean-Pierre Tilley, Julia David, Kalia Jimenez and colleagues, with an educational trey from [employer]. Review of Systems Const Denies chills, Denies headache(s) and Denies weight loss ENT Denies headache(s) Card Denies chest pain, Denies syncope, Denies irregular heart rhythm and Denies dyspnea Resp Denies chest congestion, Denies cough and Denies dyspnea GI Denies abdominal pain, Denies change in stool character, Denies nausea and Denies vomiting Musc Denies deformity and Denies joint swelling Neuro Denies syncope and Denies headache(s) Physical exam (Primary Care) Vital Signs: Last Vital Signs Pulse 87 10/17/23 08:21 BP 134/82 10/17/23 08:21 Pulse Ox 97 10/17/23 08:21 Oxygen Delivery Method Room Air 10/17/23 08:21 BMI result Body Mass Index 24.0 Tobacco/Smoking Status: Tobacco use Status Tobacco use date assessed 10/17/23 10/17/23 08:29 Patient Tobacco Use Status Former Tobacco user 10/17/23 08:29 Tobacco use type Cigarette 10/17/23 08:29 e-Cigarette/Vaping Use Never Used 10/17/23 08:29 PHQ-9: PHQ-9 Score PHQ-9: Total score 0 10/17/23 08:29 Depression Screening Interpretation: Negative Thrive Assessment: Date of Thrive Assessment Date Thrive assessed 10/17/23 10/17/23 08:29 Currently or been in a relationship where the following occur: no concerns reported Const General: cooperative, comfortable, no acute distress and alert Neck Neck: Yes no lymphadenopathy Thyroid: Thyroid normal Resp Effort & Inspection: normal respiratory effort Auscultation: clear to auscultation bilaterally Percussion: percussion normal Cardio Jugular venous distension: no JVD Palpation: normal PMI Rate: regular rate Rhythm: regular rhythm Heart sounds: S1 normal heart sound present and S2 normal heart sound present GI Inspection: Yes normal to inspection Palpation (GI): No hepatosplenomegaly present Skin General skin exam: no rashes or lesions noted Extrem General: Yes no clubbing, cyanosis or edema Assessment and Plan Assessment & Plan (1) Hypertension: Code(s): I10 - Essential (primary) hypertension Qualifiers: Hypertension type: unspecified Qualified Code(s): I10 - Essential (primary) hypertension Plan: stable; same rx (2) Hyperlipidemia: Code(s): E78.5 - Hyperlipidemia, unspecified Qualifiers: Hyperlipidemia type: unspecified Qualified Code(s): E78.5 - Hyperlipidemia, unspecified Plan: stable; same rx (3) Hypothyroidism: Comment: 20 min reviewing chart eval patient and documenting Code(s): E03.9 - Hypothyroidism, unspecified Qualifiers: Hypothyroidism type: unspecified Qualified Code(s): E03.9 - Hypothyroidism, unspecified Plan: stable; same rx Orders: Orders Lipid Panel Today E78.5 - Hyperlipidemia, unspecified Thyroid Stimulating Hormone Today E03.9 - Hypothyroidism, unspecified Complete Blood Count Auto Diff Today D64.9 - Anemia, unspecified Comprehensive [place]. Panel Fast Today N28.9 - Disorder of kidney and ureter, unspecified Referrals Speech and Hearing Referral H91.90 - Unspecified hearing loss, unspecified ear Coding Level of Care Code Est Pt Level 4 (94940) Diagnoses Hypertension, unspecified type I10 Hypertension type: unspecified Hyperlipidemia, unspecified hyperlipidemia type E78.5 Hyperlipidemia type: unspecified Hypothyroidism, unspecified type E03.9 Hypothyroidism type: unspecified
== END 2023-10-17 08:52 | disposition home or self-care (01) ==
PROVIDERS: PCP Internal Medicine; Visit Provider Internal Medicine
DX: I10 Essential (primary) hypertension (principal); E78.5 Hyperlipidemia, unspecified; E03.9 Hypothyroidism, unspecified
CPT/HCPCS: 99214

== ENCOUNTER 2023-10-17 09:29 | Outpatient (REF) | payer MEDICARE, SELFPAY ==
[2023-10-17 09:47] LABS: MANUAL DIFF FLAG NO
[2023-10-17 10:01] LABS: Basophils Absolute Auto 0.1 X10*3/uL (0.0-0.2); Basophils Percent Auto 0.8 % (0-2); Eosinophils Absolute Auto 0.1 X10*3/uL (0.0-0.4); Eosinophils Percent Auto 1.3 % (0-4); Hematocrit 46.2 % (42.0-52.0); Hemoglobin 15.6 g/dl (14.0-18.0); Imm Gran Abs Auto 0.03 X10*3/uL (0.00-0.03); Imm Gran Pct Auto 0.5 % (0.0-0.4); Lymphocytes Absolute Auto 1.9 X10*3/uL (1.2-4.9); Lymphocytes Percent Auto 32.3 % (20-40); Mean Corpuscular HGB Conc 33.8 g/dl (31.0-36.0); Mean Corpuscular Hemoglobin 30.7 pg (27.0-33.0); Mean Corpuscular Volume 90.9 fL (80.0-98.0); Mean Platelet Volume 9.3 fL (9.4-12.4); Monocytes Absolute Auto 0.5 X10*3/uL (0.1-1.2); Monocytes Percent Auto 7.9 % (2-11); Neutrophils Absolute Auto 3.4 x10*3/uL (2.0-8.3); Neutrophils Percent Auto 57.2 % (45-73); Platelet Count 273 X10*3/uL (160-400); Red Blood Count 5.08 X10*6/uL (4.60-5.80); Red Cell Distribution Width 13.5 % (11.0-16.0); White Blood Count 5.9 X10*3/uL (4.8-10.8)
[2023-10-17 11:01] LABS: Alanine Aminotransferase 35 U/L (0-40); Albumin Level 4.6 g/dL (3.5-5.0); Alkaline Phosphatase 73 U/L (39-117); Anion Gap 17 (12-20); Aspartate Amino Transferase 26 U/L (5-37); Bilirubin Total 0.9 mg/dL (0.0-1.0); Blood Urea Nitrogen 12 mg/dL (9-16); Calcium 9.8 mg/dL (8.4-10.2); Carbon Dioxide 26 mmol/L (22-29); Chloride 105 mmol/L (96-108); Cholesterol 275 mg/dL (<200); Estimated Glomerular Filt Rate > 60; Glucose Fasting 96 mg/dL (60-99); HDL Cholesterol 68 mg/dL (>40); LDL Cholesterol Calculated 181 mg/dL (<100); Potassium 4.7 mmol/L (3.3-5.1); Sodium 143 mmol/L (135-145); Total Protein 7.6 g/dL (6.5-8.0); Triglycerides 131 mg/dL (<150)
[2023-10-17 11:15] LABS: Thyroid Stimulating Hormone 3.55 uIU/mL (0.32-4.0)
== END 2023-10-17 09:30 | disposition home or self-care (01) ==
LOC: HO.LAB 09:29
PROVIDERS: PCP Internal Medicine; Visit Provider Internal Medicine
DX: D64.9 Anemia, unspecified (principal); N28.9 Disorder of kidney and ureter, unspecified; E03.9 Hypothyroidism, unspecified; E78.5 Hyperlipidemia, unspecified
CPT/HCPCS: 36415; 80053; 80061; 84443; 85025

== ENCOUNTER 2023-12-10 08:37 | Outpatient (REF) | payer MEDICARE, SELFPAY | END 2023-12-10 08:38 | disposition home or self-care (01) | LOC: HO.SH 08:37 | PROVIDERS: Visit Provider Internal Medicine | DX: H90.3 Sensorineural hearing loss, bilateral (principal) | CPT/HCPCS: 92557; 92567 ==

== ENCOUNTER 2024-04-18 13:20 | Outpatient (AMB) | payer MEDICARE, SELFPAY ==
[2024-04-18 13:22] VITALS: BP 134/80; PULSE 82; O2SAT 99; BMI 24.3
--- NOTE | 2024-04-18 13:22 | A.OFFPC_ITS ---
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 Accompanied by: Self / Same As Patient Allergies lisinopril Allergy (Unknown, Verified 04/18/24 13:28) cough Medication List - Last Reconciled 04/18/24 by Ej Munoz MD amlodipine 5 mg PO ONCE atorvastatin 10 mg PO DAILY cyclobenzaprine 10 mg PO TID PRN 10 days famotidine 20 mg PO DAILY levothyroxine 100 mcg PO DAILY methylprednisolone (Medrol (Damon)) PO PER PKG DIR naproxen (Naprosyn) 500 mg PO BID PRN Tobacco use date assessed: 10/17/23 Fall risk assessment: No Falls in past year Last assessed Fall Risk: 04/18/24 Dental Screening Dental Screen Date: 10/17/23 HPI 6mth f/u HPI Details hypertension hyperlipidemia and hypothyroidism on rx; doing well; compliant [facility] Medical History History of kidney stones HTN (hypertension) Hyperlipidemia GERD (gastroesophageal reflux disease) Malagon's esophagus Acute sinusitis Screening for colon cancer Hypothyroidism Surgical History Hx of esophagogastroduodenoscopy History of colonoscopy History of inguinal hernia repair History of appendectomy Family History Father Medical history unknown Mother Medical history unknown Family/Other Prostate cancer Colon polyps Social History Housing: House Alcohol intake: current Alcohol intake frequency: a few times a month Patient Tobacco Use Status: Former Tobacco user Tobacco use type: Cigarette e-Cigarette/Vaping Use: Never Used Second Hand Smoke Exposure: No service: No Current occupational status: retired Cognitive needs: No Hearing needs: No Vision needs: Yes Questionnaire Thrive Questionnaire Date Thrive assessed: 10/17/23 BLAISE-7 AMB Questionnaire BLAISE-7 Date BLAISE - 7 assessed: 10/17/23 Source: Developed by Drs. Jean-Pierre LJulia Nieves, Kalia Jimenez and colleagues, with an educational trey from [employer]. Review of Systems Const Denies chills, Denies headache(s) and Denies weight loss ENT Denies headache(s) Card Denies chest pain, Denies syncope, Denies irregular heart rhythm and Denies dyspnea Resp Denies chest congestion, Denies cough and Denies dyspnea GI Denies abdominal pain, Denies change in stool character, Denies nausea and Denies vomiting Musc Denies deformity and Denies joint swelling Neuro Denies syncope and Denies headache(s) Physical exam (Primary Care) Vital Signs: Last Vital Signs Pulse 82 04/18/24 13:22 BP 134/80 04/18/24 13:22 Pulse Ox 99 04/18/24 13:22 Oxygen Delivery Method Room Air 04/18/24 13:22 BMI result Body Mass Index 24.3 Tobacco/Smoking Status: Tobacco use Status Tobacco use date assessed 10/17/23 04/18/24 13:24 Patient Tobacco Use Status Former Tobacco user 04/18/24 13:24 Tobacco use type Cigarette 04/18/24 13:24 e-Cigarette/Vaping Use Never Used 04/18/24 13:24 Thrive Assessment: Date of Thrive Assessment Date Thrive assessed 10/17/23 04/18/24 13:24 Const General: cooperative, comfortable, no acute distress and alert Neck Neck: Yes no lymphadenopathy Thyroid: Thyroid normal Resp Effort & Inspection: normal respiratory effort Auscultation: clear to auscultation bilaterally Percussion: percussion normal Cardio Jugular venous distension: no JVD Palpation: normal PMI Rate: regular rate Rhythm: regular rhythm Heart sounds: S1 normal heart sound present and S2 normal heart sound present GI Inspection: Yes normal to inspection Palpation (GI): No hepatosplenomegaly present Skin General skin exam: no rashes or lesions noted Extrem General: Yes no clubbing, cyanosis or edema Assessment and Plan Assessment & Plan (1) Hypertension: Code(s): I10 - Essential (primary) hypertension Qualifiers: Hypertension type: unspecified Qualified Code(s): I10 - Essential (primary) hypertension Plan: stable; same rx (2) Hyperlipidemia: Code(s): E78.5 - Hyperlipidemia, unspecified Qualifiers: Hyperlipidemia type: unspecified Qualified Code(s): E78.5 - Hyperlipidemia, unspecified Plan: stable; same rx (3) Hypothyroidism: Comment: 20 min reviewing chart eval patient and documenting Code(s): E03.9 - Hypothyroidism, unspecified Qualifiers: Hypothyroidism type: unspecified Qualified Code(s): E03.9 - Hypothyroidism, unspecified Plan: stable; same rx Orders: Orders Lipid Panel Today Z13.220 - Encounter for screening for lipoid disorders Thyroid Stimulating Hormone Today Z13.29 - Encounter for screening for other suspected endocrine disorder Comprehensive [place]. Panel Fast Today Z13.9 - Encounter for screening, unspecified Medications: New methylprednisolone (Medrol (Damon)) PO PER PKG DIR 21 ea 0RF Coding Level of Care Code Est Pt Level 4 (93465) Diagnoses Hypertension, unspecified type I10 Hypertension type: unspecified Hyperlipidemia, unspecified hyperlipidemia type E78.5 Hyperlipidemia type: unspecified Hypothyroidism, unspecified type E03.9 Hypothyroidism type: unspecified
== END 2024-04-18 13:45 | disposition home or self-care (01) ==
PROVIDERS: PCP Internal Medicine; Visit Provider Internal Medicine
DX: I10 Essential (primary) hypertension (principal); E78.5 Hyperlipidemia, unspecified; E03.9 Hypothyroidism, unspecified
CPT/HCPCS: 99214

== ENCOUNTER 2024-04-19 08:11 | Outpatient (REF) | payer MEDICARE, SELFPAY ==
[2024-04-19 10:27] LABS: Alanine Aminotransferase 26 U/L (0-40); Albumin Level 4.5 g/dL (3.5-5.0); Alkaline Phosphatase 79 U/L (39-117); Anion Gap 13 (12-20); Aspartate Amino Transferase 23 U/L (5-37); Bilirubin Total 2.3 mg/dL (0.0-1.0); Blood Urea Nitrogen 12 mg/dL (9-16); Calcium 9.4 mg/dL (8.4-10.2); Carbon Dioxide 28 mmol/L (22-29); Chloride 105 mmol/L (96-108); Cholesterol 185 mg/dL (<200); Estimated Glomerular Filt Rate > 60; Glucose Fasting 94 mg/dL (60-99); HDL Cholesterol 64 mg/dL (>40); LDL Cholesterol Calculated 100 mg/dL (<100); Sodium 142 mmol/L (135-145); Triglycerides 108 mg/dL (<150)
== END 2024-04-19 08:12 | disposition home or self-care (01) ==
LOC: HO.LAB 08:11
PROVIDERS: PCP Internal Medicine; Visit Provider Internal Medicine
DX: Z13.29 Encounter for screening for other suspected endocrine disorder (principal); Z13.220 Encounter for screening for lipoid disorders
CPT/HCPCS: 36415; 80053; 80061; 84443

== ENCOUNTER 2024-10-27 11:13 | Emergency (ER) | payer MEDICARE, SELFPAY ==
--- NOTE | ~2024-10-27 | US_ITS ---
EXAMINATION: US TRIPLEX LOWER EXTREMITY, RIGHT CLINICAL INFORMATION: Right calf swelling and pain COMPARISON: None available. TECHNIQUE: Color-flow triplex imaging with spectral analysis and compression Doppler were performed on the right lower extremity. FINDINGS: Respiratory variation, normal compression and augmented flow are noted throughout the right lower extremity. The visualized common femoral vein, superficial femoral vein, profunda femoral vein, popliteal vein and midcalf peroneal and posterior tibial venous segments show no evidence of deep venous thrombosis. There is no Wadsworth's cyst. US/US venous duplex LE RT IMPRESSION: No evidence of deep venous thrombosis involving the right lower extremity. Electronically signed by: Dusty Handley MD 10/27/2024 01:06 PM [facility]
--- NOTE | ~2024-10-27 | XR_ITS ---
EXAMINATION: XR ANKLE 3 OR MORE VIEWS RIGHT, XR FOOT 3 OR MORE VIEWS RIGHT HISTORY: pain COMPARISON: There are no prior studies available for comparison. FINDINGS: Five views of the right foot and ankle are submitted. Osseous mineralization is normal. There is no fracture or dislocation. There is moderate osteoarthritis of the 1st MTP joint with joint space narrowing and osteophyte formation. There is also osteoarthritis of the 1st tarsometatarsal joint and the talonavicular joint. The ankle mortise is maintained. There is a small plantar calcaneal spur. The soft tissues are unremarkable. XR/XR foot RT min 3V IMPRESSION: Degenerative changes of the right foot and ankle as described. Electronically signed by: Jean-Pierre Ocasio MD 10/27/2024 12:24 PM [facility]
--- NOTE | ~2024-10-27 | XR_ITS ---
EXAMINATION: XR LUMBAR SPINE 2-3 VIEWS HISTORY: pain COMPARISON: There are no prior studies for comparison. FINDINGS: AP, lateral, and coned down views of the lumbar spine are submitted. Osseous mineralization is normal. Five nonrib-bearing lumbar vertebral bodies are identified, maintaining normal height and alignment without evidence of fracture or spondylolisthesis. There is diffuse mild degenerative disc disease with osteophyte formation. The intervertebral disc spaces are maintained. There is osteoarthritis of the facet joints at the L4-5 and L5-S1 levels. The visualized paraspinal soft tissues are unremarkable. XR/XR lumbar spine 2-3V IMPRESSION: Degenerative changes of the lumbar spine as described. Electronically signed by: Jean-Pierre Ocasio MD 10/27/2024 12:28 PM [facility]
--- NOTE | ~2024-10-27 | XR_ITS ---
EXAMINATION: XR ANKLE 3 OR MORE VIEWS RIGHT, XR FOOT 3 OR MORE VIEWS RIGHT HISTORY: pain COMPARISON: There are no prior studies available for comparison. FINDINGS: Five views of the right foot and ankle are submitted. Osseous mineralization is normal. There is no fracture or dislocation. There is moderate osteoarthritis of the 1st MTP joint with joint space narrowing and osteophyte formation. There is also osteoarthritis of the 1st tarsometatarsal joint and the talonavicular joint. The ankle mortise is maintained. There is a small plantar calcaneal spur. The soft tissues are unremarkable. XR/XR ankle RT min 3V IMPRESSION: Degenerative changes of the right foot and ankle as described. Electronically signed by: Jean-Pierre Ocasio MD 10/27/2024 12:24 PM [facility]
--- NOTE | ~2024-10-27 | XR_ITS ---
EXAMINATION: XR KNEE 3 VIEWS RIGHT HISTORY: pain COMPARISON: There are no prior studies available for comparison. FINDINGS: Four views of the right knee are submitted. Osseous mineralization is normal. There is no fracture or dislocation. There is mild osteoarthritis of the patellofemoral compartment with joint space narrowing and osteophyte formation. There is no joint effusion. XR/XR knee RT 3V IMPRESSION: Mild osteoarthritis of the patellofemoral compartment. Electronically signed by: Jean-Pierre Ocasio MD 10/27/2024 12:26 PM [facility]
--- NOTE | ~2024-10-27 | XR_ITS ---
EXAMINATION: XR hip RT w PEL 1V HISTORY: pain COMPARISON: There are no prior studies for comparison. FINDINGS: Two views of the pelvis and 2 additional views of the right hip are submitted. Osseous mineralization is normal. There is no fracture or dislocation. There is moderate to severe osteoarthritis of the right hip with joint space narrowing and osteophyte formation. The soft tissues are unremarkable. XR/XR hip RT w PEL 1V IMPRESSION: Moderate to severe osteoarthritis of the right hip. Electronically signed by: Jean-Pierre Ocasio MD 10/27/2024 12:25 PM [facility]
[2024-10-27 11:47] VITALS: BP 184/94; PULSE 101; RESP 18; TEMP 36.8; O2SAT 98; BMI 25.1
--- NOTE | 2024-10-27 11:47 | ED.GENADULT ---
HPI - General Adult General Chief complaint: General Medical Stated complaint: DVT R leg? Time Seen by Provider: 10/27/24 14:12 Source: patient Mode of arrival: ambulatory Limitations: no limitations History of Present Illness ED Provider: Tosha Tejada APRN HPI narrative: 74-year-old male with history hypertension, hyperlipidemia here with complaints of right ankle pain x 3 weeks. Patient reports he was bowling and misstepped and had pain. Pain has been intermittent since. Noticed increasing swelling and pain over the last few days. Also c/o acute on chronic right hip pain with no injury or trauma. he has been taking naproxen 500 mg twice daily as needed for pain. He has a follow up appointment next month with orthopedic. Patient denies any weakness, numbness, tingling, redness, warmth to the ankle or foot. Denies any calf pain, calf swelling, chest pain, shortness of breath. Denies any recent travel. Related Data Previous Rx's ?Medication ?Instructions ?Recorded naproxen 500 mg tablet (Naprosyn) 500 mg PO BID PRN pain #60 tabs 09/12/23 famotidine 20 mg tablet 20 mg PO DAILY #90 tabs 10/29/23 cyclobenzaprine 10 mg tablet 10 mg PO TID PRN muscle spasm 10 04/03/24 days #30 tabs methylprednisolone 4 mg tablets in See Rx Instructions PO PER PKG DIR 04/18/24 a dose pack (Medrol (Damon)) #21 ea amlodipine 5 mg tablet 5 mg PO ONCE #90 tabs 05/22/24 levothyroxine 100 mcg tablet 100 mcg PO DAILY #90 tabs 09/03/24 atorvastatin 10 mg tablet 10 mg PO DAILY #90 tabs 10/23/24 naproxen 500 mg tablet 500 mg PO BID PRN pain #30 tabs 10/27/24 Allergies Allergy/AdvReac Type Severity Reaction Status Date / Time lisinopril Allergy Unknown cough Verified 10/27/24 11:51 Review of Systems Review of Systems: Yes all other systems are reviewed and are negative Constitutional: Constitutional: Reports no additional constitutional complaints, Denies body ache(s), Denies chills, Denies fever(s), Denies headache(s) and Denies weakness Eyes: Eyes: Reports no additional eye complaints and Denies change in vision ENT: Reports system reviewed and no additional complaints, except as documented, Denies dizziness, Denies headache(s), Denies nasal congestion, Denies nasal discharge and Denies neck pain Cardiovascular: Cardiovascular: Reports no additional cardiovascular complaints, Denies chest pain, Denies leg edema and Denies dyspnea Respiratory: Respiratory: Reports no additional respiratory complaints, Denies cough and Denies dyspnea Gastrointestinal: Gastrointestinal: Reports no additional gastrointestinal complaints, Denies abdominal pain, Denies diarrhea, Denies nausea and Denies vomiting Genitourinary: Genitourinary: Denies urinary incontinence Musculoskeletal: Musculoskeletal: Reports no additional musculoskeletal complaints, Denies back pain, Reports arthralgias, Reports joint swelling, Denies limited range of motion, Denies neck pain, Denies numbness and Denies tingling Integumentary/Breasts: Skin/Breast: Reports system reviewed and no additional complaints, except as docu and Denies rash Neurologic: Reports system reviewed and no additional complaints, except as documented, Denies Abnormal speech present, Denies dizziness, Denies headache(s), Denies numbness, Denies tingling and Denies weakness PMFSH Past Medical History Attestation statement: The following information was validated with the patient. Source: old records reviewed and nursing notes reviewed Medical History History of kidney stones HTN (hypertension) Hyperlipidemia GERD (gastroesophageal reflux disease) Malagon's esophagus Acute sinusitis Screening for colon cancer Hypothyroidism Surgical History Hx of esophagogastroduodenoscopy History of colonoscopy History of inguinal hernia repair History of appendectomy Family History Family History Father Medical history unknown Mother Medical history unknown Family/Other Prostate cancer Colon polyps Social History Social History Housing: House Alcohol intake: current Alcohol intake frequency: a few times a month Patient Tobacco Use Status: Former Tobacco user Tobacco use type: Cigarette e-Cigarette/Vaping Use: Never Used Second Hand Smoke Exposure: No Advance Directives: No Advance Directives Information Provided: Yes Do you have a plan to hurt others: No Plan service: No Current occupational status: retired Cognitive needs: No Hearing needs: No Vision needs: Yes Physical Exam ED Vital Signs: Vital Signs - 24 hr 10/27/24 11:47 Temperature 98.2 F Pulse Rate 101 H Respiratory Rate 18 Blood Pressure 184/94 H Pulse Oximetry 98 Oxygen Delivery Method Room Air BMI result Body Mass Index 25.1 Const General: cooperative, healthy appearing, comfortable and no acute distress Orientation/consciousness: patient oriented x3 Limitations: no limitations HENMT Head: Yes normal to inspection Ears: hearing grossly normal bilaterally General nose exam: Normal external nose present Face and sinus: Yes normal facial exam Mouth: Normal oral and palatal mucosa present Throat: Yes posterior oropharynx normal Eyes General: appearance normal, both eyes and all related structures Pupils: Equal, round and reactive pupils present Neck Neck: Yes normal visual inspection Chest Chest palpation & inspection: normal inspection of the chest Resp Effort & Inspection: normal respiratory effort Auscultation: clear to auscultation bilaterally Cardio Rate: regular rate Rhythm: regular rhythm Peripheral pulses: Peripheral pulses 2+ throughout GI Inspection: Yes normal to inspection Palpation (GI): Soft to palpation and nontender Auscultation: normal bowel sounds Back/Spine/Pelvis Thoracic/Lumbar Spine: thoracic and lumbar spine normal to inspection Skin General skin exam: no rashes or lesions noted Neuro General: patient oriented x3, no focal motor deficits and normal sensation to monofilament Cranial nerves: Yes Equal, round and reactive pupils present Cognition (Neuro): normal cognition Speech: No Abnormal speech present Gait exam (Neuro): Normal gait present Motor exam (neuro): 5/5 motor strength present throughout Extrem Other: There was some mild swelling to the right ankle. This is circumferential. There is no warmth or redness. There is full active and passive range of motion of the right ankle and right foot. There is some pain on palpation over the right anterior ankle. There is no ligamental laxity. There is no posterior ankle pain. Negative Astudillo sign. No pain on palpation over the Achilles. 2+ DP/PT pulses Course Course Course Narrative: This is an RME: Additional HPI, ROS, PE not included below will be deferred to primary provider. RME assessment and note performed by: Ashlyn Herzog PA-C This is a 22-fpqb-hcl-male, with a hx of thyroid disorder, HTN, HLD, who presents to the ER with complaints of right calf pain. Reports that two weeks ago he has had right calf pain. Patient reports that 2 weeks ago, he reports that he was bowling and stepped irregularly, and has had increased pain. He also reports he has had swelling and pain in his right calf. He is not on anticoagulation. Patient reports that he has ankle pain, right foot pain, right knee, right hip, and low back pain. Plan: X-rays, ultrasound Reevaluation(s) Reevaluation #1: ultrasound is negative for DVT. X-rays show arthritis throughout. No bony abnormality. Reviewed findings with patient family. Patient placed in Adolfo wrap. Recommend to limit weight-bearing at home for the next few days and use rice as well as NSAID. Recommend follow up outpatient with providers. Patient has appointment with PCP tomorrow. Reviewed worrisome signs and symptoms of when to return to the emergency room. Comfortable plan for discharge home. Medical Decision Making Medical Decision Making MDM Narrative: 74-year-old male with history hypertension, hyperlipidemia here with complaints of right ankle pain x 3 weeks. Patient reports he was bowling and misstepped and had pain. Pain has been intermittent since. Noticed increasing swelling and pain over the last few days. Also c/o acute on chronic right hip pain with no injury or trauma. he has been taking naproxen 500 mg twice daily as needed for pain. He has a follow up appointment next month with orthopedic. Patient denies any weakness, numbness, tingling, redness, warmth to the ankle or foot. Denies any calf pain, calf swelling, chest pain, shortness of breath. Denies any recent travel. There was some mild swelling to the right ankle. This is circumferential. There is no warmth or redness. There is full active and passive range of motion of the right ankle and right foot. There is some pain on palpation over the right anterior ankle. There is no ligamental laxity. There is no posterior ankle pain. Negative Astudillo sign. No pain on palpation over the Achilles. 2+ DP/PT pulses. Likely sprain or strain Will review x-rays, US from triage Differential Diagnosis Differential Diagnoses: The differential diagnosis associated with the presentation includes sprain, strain, fracture, dislocation Low suspicion for vascular injury, DVT, septic joint Admission/Observation Consideration of admission/observation: Escalation of care including admission/observation considered Independent Interpretation I performed an independent interpretation of an: Plain X-Ray and Ultrasound Interpretation: I independently viewed the x-ray and ultrasound agree with the radiology report Radiology Impression Discussion of test interpretation with radiology: I have reviewed the radiologist's reading. Radiologist Impression: [address] [address] Ultrasound Report Signed Patient: Nico Kerr MR#: [id number] : 1950 Acct:[id number] Age/Sex: 74 / M ADM Date: 10/27/24 Loc: .ED Attending Dr: Ordering Physician: Ashlyn Herzog Date of Service: 10/27/24 Procedure(s): US venous duplex LE RT Accession Number(s): [id number] cc: Ashlyn Herzog; Ej Munoz MD~ EXAMINATION: US TRIPLEX LOWER EXTREMITY, RIGHT CLINICAL INFORMATION: Right calf swelling and pain COMPARISON: None available. TECHNIQUE: Color-flow triplex imaging with spectral analysis and compression Doppler were performed on the right lower extremity. FINDINGS: Respiratory variation, normal compression and augmented flow are noted throughout the right lower extremity. The visualized common femoral vein, superficial femoral vein, profunda femoral vein, popliteal vein and midcalf peroneal and posterior tibial venous segments show no evidence of deep venous thrombosis. There is no Wadsworth's cyst. US/US venous duplex LE RT IMPRESSION: No evidence of deep venous thrombosis involving the right lower extremity. Electronically signed by: Dusty Handley MD 10/27/2024 01:06 PM [facility] [address] [address] XRay Report Signed Patient: Nico Kerr MR#: [id number] : 1950 Acct:[id number] Age/Sex: 74 / M ADM Date: 10/27/24 Loc: .ED Attending Dr: Ordering Physician: Ashlyn Herzog Date of Service: 10/27/24 Procedure(s): XR lumbar spine 2-3V Accession Number(s): [id number] cc: Ashlyn Herzog; Ej Munoz MD~ EXAMINATION: XR LUMBAR SPINE 2-3 VIEWS HISTORY: pain COMPARISON: There are no prior studies for comparison. FINDINGS: AP, lateral, and coned down views of the lumbar spine are submitted. Osseous mineralization is normal. Five nonrib-bearing lumbar vertebral bodies are identified, maintaining normal height and alignment without evidence of fracture or spondylolisthesis. There is diffuse mild degenerative disc disease with osteophyte formation. The intervertebral disc spaces are maintained. There is osteoarthritis of the facet joints at the L4-5 and L5-S1 levels. The visualized paraspinal soft tissues are unremarkable. XR/XR lumbar spine 2-3V IMPRESSION: Degenerative changes of the lumbar spine as described. Electronically signed by: Jean-Pierre Ocasio MD 10/27/2024 12:28 PM EST RP [address] [address] XRay Report Signed Patient: Nico Kerr MR#: [id number] : 1950 Acct:[id number] Age/Sex: 74 / M ADM Date: 10/27/24 Loc: .ED Attending Dr: Ordering Physician: Ashlyn Herzog Date of Service: 10/27/24 Procedure(s): XR knee RT 3V Accession Number(s): [id number] cc: Ashlyn Herzog; Ej Munoz MD~ EXAMINATION: XR KNEE 3 VIEWS RIGHT HISTORY: pain COMPARISON: There are no prior studies available for comparison. FINDINGS: Four views of the right knee are submitted. Osseous mineralization is normal. There is no fracture or dislocation. There is mild osteoarthritis of the patellofemoral compartment with joint space narrowing and osteophyte formation. There is no joint effusion. XR/XR knee RT 3V IMPRESSION: Mild osteoarthritis of the patellofemoral compartment. Electronically signed by: Jean-Pierre Ocasio MD 10/27/2024 12:26 PM EST RP [address] [address] XRay Report Signed Patient: Nico Kerr MR#: [id number] : 1950 Acct:[id number] Age/Sex: 74 / M ADM Date: 10/27/24 Loc: HO.ED Attending Dr: Ordering Physician: Ashlyn Herzog Date of Service: 10/27/24 Procedure(s): XR hip RT w PEL 1V Accession Number(s): [id number] cc: Ashlyn Herzog; Ej Munoz MD~ EXAMINATION: XR hip RT w PEL 1V HISTORY: pain COMPARISON: There are no prior studies for comparison. FINDINGS: Two views of the pelvis and 2 additional views of the right hip are submitted. Osseous mineralization is normal. There is no fracture or dislocation. There is moderate to severe osteoarthritis of the right hip with joint space narrowing and osteophyte formation. The soft tissues are unremarkable. XR/XR hip RT w PEL 1V IMPRESSION: Moderate to severe osteoarthritis of the right hip. Electronically signed by: Jean-Pierre Ocasio MD 10/27/2024 12:25 PM EST RP [place] [address] XRay Report Signed Patient: Nico Kerr MR#: [id number] : 1950 Acct:[id number] Age/Sex: 74 / M ADM Date: 10/27/24 Loc: HO.ED Attending Dr: Ordering Physician: Ashlyn Herzog Date of Service: 10/27/24 Procedure(s): XR foot RT min 3V Accession Number(s): [id number] cc: Ashlyn Herzog; Ej Munoz MD~ EXAMINATION: XR ANKLE 3 OR MORE VIEWS RIGHT, XR FOOT 3 OR MORE VIEWS RIGHT HISTORY: pain COMPARISON: There are no prior studies available for comparison. FINDINGS: Five views of the right foot and ankle are submitted. Osseous mineralization is normal. There is no fracture or dislocation. There is moderate osteoarthritis of the 1st MTP joint with joint space narrowing and osteophyte formation. There is also osteoarthritis of the 1st tarsometatarsal joint and the talonavicular joint. The ankle mortise is maintained. There is a small plantar calcaneal spur. The soft tissues are unremarkable. XR/XR foot RT min 3V IMPRESSION: Degenerative changes of the right foot and ankle as described. Electronically signed by: Jean-Pierre Ocasio MD 10/27/2024 12:24 PM EST RP [address] [address] XRay Report Signed Patient: Nico Kerr MR#: [id number] : 1950 Acct:[id number] Age/Sex: 74 / M ADM Date: 10/27/24 Loc: HO.ED Attending Dr: Ordering Physician: Ashlyn Herzog Date of Service: 10/27/24 Procedure(s): XR ankle RT min 3V Accession Number(s): [id number] cc: Ashlyn Herzog; Ej Munoz MD~ EXAMINATION: XR ANKLE 3 OR MORE VIEWS RIGHT, XR FOOT 3 OR MORE VIEWS RIGHT HISTORY: pain COMPARISON: There are no prior studies available for comparison. FINDINGS: Five views of the right foot and ankle are submitted. Osseous mineralization is normal. There is no fracture or dislocation. There is moderate osteoarthritis of the 1st MTP joint with joint space narrowing and osteophyte formation. There is also osteoarthritis of the 1st tarsometatarsal joint and the talonavicular joint. The ankle mortise is maintained. There is a small plantar calcaneal spur. The soft tissues are unremarkable. XR/XR ankle RT min 3V IMPRESSION: Degenerative changes of the right foot and ankle as described. Electronically signed by: Jean-Pierre Ocasio MD 10/27/2024 12:24 PM EST RP Independent Historian Clinical information obtained from an independent historian. History obtained from or confirmed by: Spouse Discharge Plan Discharge Clinical Impression: Osteoarthritis of right hip, Right ankle sprain Patient Disposition: Home, Self-Care Instructions: Ankle Sprain (ED), Osteoarthritis (ED) Additional Instructions: rest, ice, elevation, use the compression bandage as needed, use a cane to help limit weight-bearing You are recommended to follow up outpatient with orthopedics for any continued symptoms Take the naproxen as needed for pain Prescriptions: New naproxen 500 mg tablet 500 mg PO BID PRN (Reason: pain) Qty: 30 0RF No Action famotidine 20 mg tablet 20 mg PO DAILY Qty: 90 8RF cyclobenzaprine 10 mg tablet 10 mg PO TID PRN (Reason: muscle spasm) 10 Days Qty: 30 2RF amlodipine 5 mg tablet 5 mg PO ONCE Qty: 90 3RF levothyroxine 100 mcg tablet 100 mcg PO DAILY Qty: 90 1RF Rx Instructions: please make sure patient receives tablet form, not capsules atorvastatin 10 mg tablet 10 mg PO DAILY Qty: 90 8RF methylprednisolone [Medrol (Damon)] 4 mg tablets,dose pack See Rx Instructions PO PER PKG DIR Qty: 21 0RF Rx Instructions: PO PER PKG DIR naproxen [Naprosyn] 500 mg tablet 500 mg PO BID PRN (Reason: pain) Qty: 60 0RF Referrals: Ej Munoz MD [Primary Care Provider] - 1 day Print Language: Cypriot
[2024-10-27 16:08] VITALS: BP 184/94; PULSE 101; RESP 18; TEMP 36.8; O2SAT 98
== END 2024-10-27 16:09 | disposition home or self-care (01) ==
PROVIDERS: Emergency Provider Emergency Medicine; PCP Internal Medicine
DX: S93.401A Sprain of unspecified ligament of right ankle, initial encounter (principal); X58.XXXA Exposure to other specified factors, initial encounter; Y93.9 Activity, unspecified; Y92.9 Unspecified place or not applicable; Y99.9 Unspecified external cause status; M17.9 Osteoarthritis of knee, unspecified; M25.571 Pain in right ankle and joints of right foot; I10 Essential (primary) hypertension; E78.5 Hyperlipidemia, unspecified; E03.9 Hypothyroidism, unspecified; M79.661 Pain in right lower leg; M79.89 Other specified soft tissue disorders; M25.551 Pain in right hip
CPT/HCPCS: 72100; 73502; 73562; 73610; 73630; 93971; 99282; 99284

== ENCOUNTER → 2024-10-27 11:54 | Outpatient (BNV) | payer MEDICARE, SELFPAY | PROVIDERS: PCP Internal Medicine; Visit Provider Radiology Diagnostic Radiology | DX: R22.41 Localized swelling, mass and lump, right lower limb (principal); M25.551 Pain in right hip; M54.50 Low back pain, unspecified; M25.561 Pain in right knee; M25.571 Pain in right ankle and joints of right foot; M79.671 Pain in right foot | CPT/HCPCS: 93971 ==

== ENCOUNTER 2024-10-28 13:26 | Outpatient (AMB) | payer MEDICARE, SELFPAY ==
--- NOTE | 2024-10-28 13:28 | MHC.PC.OV ---
Vital Signs 10/28/24 13:30 Height 5 ft 10 in Weight 172 lb 8 oz BMI 24.7 BP 140/80 H Blood Pressure Location Lt brachial Position Sitting Pulse 83 Pulse Source Pulse Oximeter Temp 97.1 F Temp Source Skin Pulse Oximetry (%) 97 Oxygen Delivery Method Room Air Intake Visit Reasons: 6mth f/u Intake Note: Patient is here to follow up on HTN, HLD. 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 Accompanied by: Spouse Allergies lisinopril Allergy (Unknown, Verified 10/28/24 13:30) cough Medication List - Last Reconciled 10/29/24 by Ej Munoz MD amlodipine 5 mg PO ONCE atorvastatin 10 mg PO DAILY cyclobenzaprine 10 mg PO TID PRN 10 days famotidine 20 mg PO DAILY levothyroxine 100 mcg PO DAILY methylprednisolone (Medrol (Damon)) PO PER PKG DIR naproxen 500 mg PO BID PRN naproxen (Naprosyn) 500 mg PO BID PRN Tobacco use date assessed: 10/28/24 Fall risk assessment: 1 Fall in past year Last assessed Fall Risk: 10/28/24 Dental Screening Dental Screen Date: 10/28/24 Did you have a dental visit in the last 12 months?: Yes Did you have a dental problem in the last 6 months where you did not have access to dental care?: No Was dental information given to patient?: Patient has dentist HPI 6mth f/u HPI Details pain and swelling right ankle; went to er and had a normal venous [facility] Medical History History of kidney stones HTN (hypertension) Hyperlipidemia GERD (gastroesophageal reflux disease) Malagon's esophagus Acute sinusitis Screening for colon cancer Hypothyroidism Surgical History Hx of esophagogastroduodenoscopy History of colonoscopy History of inguinal hernia repair History of appendectomy Family History (Updated 10/28/24 @ 13:29 by REGGIE Doe) Father Medical history unknown Mother Medical history unknown Family/Other Prostate cancer Colon polyps Social History Housing: House Alcohol intake: current Alcohol intake frequency: a few times a month Patient Tobacco Use Status: Former Tobacco user Tobacco use type: Cigarette e-Cigarette/Vaping Use: Never Used Second Hand Smoke Exposure: Yes service: No Current occupational status: retired Cognitive needs: No Hearing needs: No Vision needs: Yes Questionnaire PHQ-9 Over the last 2 weeks, how often have you been bothered by any of the following problems? 1. Little interest or pleasure in doing things: not at all 2. Feeling down, depressed, or hopeless: not at all 3. Trouble falling or staying asleep, or sleeping too much: not at all 4. Feeling tired or having little energy: not at all 5. Poor appetite or overeating: not at all 6. Feeling bad about yourself - or that you are a failure or have let yourself or your family down: not at all 7. Trouble concentrating on things, such as reading the newspaper or watching television: not at all 8. Moving or speaking so slowly that other people could have noticed. Or the opposite - being so fidgety or restless that you have been moving around a lot more than usual: not at all 9. Thoughts that you would be better off or of hurting yourself in some way: not at all Total score: 0 Depression Screening Interpretation: Negative Depression Screening Done: Yes Source: Developed by Drs. Jean-Pierre Tilley, Julia David, Kalia Jimenez and colleagues, with an educational trey from [employer]. Thrive Questionnaire Date Thrive assessed: 10/28/24 I am a: Patient What is your living situation today?: I have a steady place to live Within the past 12 months, did the food you bought not last and you didn't have the money to get more?: Never true Within the past 12 months, did you worry whether your food would run out before you got money to buy more?: Never true Do you have trouble paying for medicines?: No Do you have trouble getting transportation to medical appointments?: No Do you have trouble paying your heating and electricity bill?: No Do you have trouble taking care of your child, family member or friend?: No Do you have trouble with day-to-day activities such as bathing, preparing meals, shopping, managing finances, etc.?: No Are you currently unemployed and looking for a job?: No Are you interested in more education?: No Please select the resources that you would like help with: None Currently or been in a relationship where the following occur: No concerns reported THRIVE Score: 0 AUDIT C Alcohol Use Questionnaire (AUDIT-C) 1. How often do you have a drink containing alcohol?: Monthly or less 2. How many drinks containing alcohol do you have on a typical day when you are drinking?: 1 or 2 3. How often do you have six or more drinks on one occasion?: Never Total Score: 1 BLAISE-7 AMB Questionnaire BLAISE-7 Date BLAISE - 7 assessed: 10/28/24 Feeling nervous, anxious, or on edge: 0 = Not at all Not being able to stop or control worryin = Not at all Worrying too much about different things: 0 = Not at all Trouble relaxin = Not at all Being so restless that it is hard to sit still: 0 = Not at all Becoming easily annoyed or irritable: 0 = Not at all Feeling afraid as if something awful might happen: 0 = Not at all Total BLAISE-7 score (0-4 normal; 5-9 mild; 10-14 moderate; 15-21 severe): 0 Source: Developed by Drs. Jena-Pierre Tilley, Julia David, Kalia Jimenez and colleagues, with an educational trey from [employer]. Review of Systems Const Denies chills, Denies headache(s) and Denies weight loss ENT Denies headache(s) Card Denies chest pain, Denies syncope, Denies irregular heart rhythm and Denies dyspnea Resp Denies chest congestion, Denies cough and Denies dyspnea GI Denies abdominal pain, Denies change in stool character, Denies nausea and Denies vomiting Musc Denies deformity and Denies joint swelling Neuro Denies syncope and Denies headache(s) Physical exam (Primary Care) Vital Signs: Last Vital Signs Temp 97.1 F 10/28/24 13:30 Pulse 83 10/28/24 13:30 BP 140/80 H 10/28/24 13:30 Pulse Ox 97 10/28/24 13:30 Oxygen Delivery Method Room Air 10/28/24 13:30 BMI result Body Mass Index 24.7 Tobacco/Smoking Status: Tobacco use Status Tobacco use date assessed 10/28/24 10/28/24 13:36 Patient Tobacco Use Status Former Tobacco user 10/28/24 13:36 Tobacco use type Cigarette 10/28/24 13:36 e-Cigarette/Vaping Use Never Used 10/28/24 13:36 PHQ-9: PHQ-9 Score PHQ-9: Total score 0 10/28/24 13:36 Depression Screening Interpretation: Negative Thrive Assessment: Date of Thrive Assessment Date Thrive assessed 10/28/24 10/28/24 13:36 Currently or been in a relationship where the following occur: No concerns reported Const General: cooperative, comfortable, no acute distress and alert Neck Neck: Yes no lymphadenopathy Thyroid: Thyroid normal Resp Effort & Inspection: normal respiratory effort Auscultation: clear to auscultation bilaterally Percussion: percussion normal Cardio Jugular venous distension: no JVD Palpation: normal PMI Rate: regular rate Rhythm: regular rhythm Heart sounds: S1 normal heart sound present and S2 normal heart sound present GI Inspection: Yes normal to inspection Palpation (GI): No hepatosplenomegaly present Skin General skin exam: no rashes or lesions noted Extrem General: Yes no clubbing, cyanosis or edema Coding Level of Care Code Est Pt Level 3 (56765) Diagnoses Ankle pain M25.579 Assessment & Plan Assessment & Plan (1) Ankle pain: Code(s): M25.579 - Pain in unspecified ankle and joints of unspecified foot Plan: check labs including a uric acid Orders: Orders Lipid Panel Today Z13.220 - Encounter for screening for lipoid disorders Thyroid Stimulating Hormone Today Z13.29 - Encounter for screening for other suspected endocrine disorder Complete Blood Count Auto Diff Today Z13.0 - Encounter for screening for diseases of the blood and blood-forming organs and certain disorders involving the immune mechanism Uric Acid Today M10.9 - Gout, unspecified Comprehensive Tichnor. Panel Fast Today Z13.9 - Encounter for screening, unspecified XR DEXA axial skeleton Today M85.80 - Other specified disorders of bone density and structure, unspecified site
[2024-10-28 13:30] VITALS: BP 140/80; PULSE 83; TEMP 36.2; O2SAT 97; BMI 24.7
--- OUTSIDE RECORDS SUMMARY | 2024-10-28 15:12 | XMS_ITS ---
[facility] Address [address] [place] [address] Care Team Providers Care Sales Coordinator Name Role Phone Ej Munoz MD Primary Care Provider Unavaila ble Black, Claudia Unavailable [phone] Allergies No Known Allergies Results Component Value Reference Range Notes X ray : Foot, left 2V (Not y et reviewed by provider) Interpretation:See Examination above Performing Lab: Notes/Report: See Examination above REASON FOR VISIT PCP - 03/2023, Painful Toe(s) Medications Medication SIG (Take, Route, Frequency, Duration) Notes Start Date End Date Status Famotidine 20 MG TAKE 1 TABLET BY TENISHA TH DAILY Oral for 90 Days Active Levothyroxine Sodium 100 MCG Oral for 90 Days Active Atorvastatin Calcium 10 MG TAKE 1 TABLET BY MOUTH EVERY DAY Oral for 90 Days Not-Taking amLODIPine Besylate 5 MG Oral for 90 Days Active Social History Tobacco Use: Social History Observation Description Date Details (start date - stop date) Former Smoker NA - NA Tobacco Use/Smoking Question Answer Notes Are you a: former smoker Additional Findings: Tobacco Non-User Current no n-smoker Alcohol Screen Question Answer Notes Did you have a drink containing alcohol in the p ast year? Yes Points 0 Interpretation Negative Tobacco use other than smoking: Question Answer Notes Are you an other tobacco user? No Problems Problem Type SNOMED Code ICD Code Onset Dates Problem Status W/U Status Risk Notes Problem Acquired hammer toe of left foot (8952480927292662) Other hammer toe(s) (acquired), left foot (M20.42) Active confirmed Problem Localized, primary osteoarthritis of the ankle and/or foot (146593918) Arthritis of joint of lesser toe, left (M19.072) Active confirmed Vital Signs Height 5 ft 10 in in 07/12/2023 Weight 165 lbs 07/12/2023 BMI 23.67 kg/m2 07/12/2023 Procedures Procedure Date Ordered Date Performed Result Body Sit e - Ganglion Cyst Injection/Aspiration 07/12/2023 N/A Encounters Encounter Location Date Provider Diagnosis [facility] [address] [address] 07/12/2023 Claudia Black Pain in left toe(s) M79.675 ; Other hammer toe(s) (acquired), left foot M20.42 ; Arthritis of joint of lesser toe, left M19.072 and Ganglion cyst of right foot M67.471 Assessments Encounter Date Diagnosis (ICD Code) Assessment Notes Treatment Notes Treatment Clinical Notes Section Notes 07/12/2023 Pain in left toe(s) (ICD-10 - M79.675) 07/12/2023 Other hammer toe(s) (acquired), left foot (ICD-10 - M20.42) 07/12/2023 Arthritis of joint of lesser toe, left (ICD-10 - M19.072) 07/12/2023 Ganglion cyst of right foot (ICD-10 - M67.471) Plan Of Treatment Pending Test Test Name Order Date X ray : Foot, left 2V 07/12/2023- Ganglion Cyst Injection/Aspiratio n 07/12/2023 Next Appt Details Follow Up: prn, Reason: Procedure Notes * Category Sub-Category Detail Notes Aspiration Indication Symptomatic Gang lion/Cyst Prep The skin was prepped with alcohol with aseptic technique Anesthesia Topical cryo Guidance Palpation Aspiration We advanced a steril e 18 gauge needle into the area for fluid collection Yield The fluid was dwight yellow gel like .04 cc Effect The procedure succes sfully decompressed the fluid collection and should relieve discomfort Disposition The patient tolerate d the procedure and anesthesia well and left the office alert and stable and in good condition. The wound was dressed with a dry sterile dressing Progress Notes * Nico SELBY ADOB: 0 (73 yo M)Acc No.[id number]:07/12/2023 Progress Notes Patient:?Nico Selby Provider:?Claudia Manuel DPM :1950???Age:73 Y???Sex:Male Omar e:07/12/2023 Address: [address] [id number] Pcp:Ej Munoz MD Subjective: * Chief Complaints: * ???PCP - ainful Toe( s) * HPI: ???Toe pain:?Nature:?tenderness with bump .?Location:?Left foot.?Duration:?several months.?Course:?worse.?Aggrevated by:?any pressure, shoes.?Treatments:?none.? * ROS:?General/Constitutional:?Nausea?denies.?Vomiting?denies.?Hunger Thirst?denies.?Loss appetite?denies.?Chills?denies.?Fatigue?denies.?Fever?denies.?Night Sweats?denies.?Unexplained weight loss?denies.?Unexplained weight gain?denies.?HEENTM:?Dentures?denies.?Dizziness?denies.?Glasses/contacts?admits.?Retinopathy?de nies.?Blurred/double vision?denies.?TMJ?denies.?Discharge/drainage?denies.?Implants?denies.?Sore throat?denies.?Dental implants?denies.?Hard of hearing ?denies.?Difficulty chewing/swallowing/speaking?denies.?Nose bleeds?denies.?Sore mouth?denies.?Respiratory:?On Oxygen?denies.?Pneumonia/pleurisy?denies.?Bronchitis?denies.?Emphysema?denies.?C oughing?denies.?Cough blood?denies.?Shortness of breath?denies.?Wheezing?denies.?Cardiovascular:?Pacemaker?denies.?MVP?denies.?WPW?denies.?CHF?denies.?Heart attack?denies.?Septal defect?denies.?Rapid beat?denies.?Chest pain ?denies.?Atrial Fib.?denies.?Murmur/Palpitations?denies.?Gastrointestinal:?Hemorrhoids?denies.?Stomach/Abdominal pain?denies.?Dark blood stool?denies.?Irritable bowel ?denies.?Constipation?denies.?Diarrhea?denies.?Hematology:?Swelling?denies.?Clots?denies.?Varicose Veins?denies.?Bruising?denies.?Bleeding problem?denies.?Genitourinary:?Blood urine?denies.?Frequent/Painfu/urination/bladder control?denies.?Kidney stones?denies.?Infection (UTI)?denies.?Nephropathy?denies.?sex trans dis (STD)?denies.?Prostate?denies.?Musculoskeletal:?Hammertoes?denies.?Bunions?denies.?Back Pain?sciatica.?Muscle Cramps/ Resting?denies.?Muscle cramps / walking?denies.?Generalized aches and pains?denies.?Weakness?denies.?Integ.:?Hunt?denies.?Scars?denies.?Corns/calluses?admits.?Ingrown nails?denies.?Painful nails?denies.?Open Sores?denies.?Rashes?denies.?Neurologic:?Difficulty sleeping?denies.?Brain disorder?denies.?Numbness?denies.?Balance trouble?denies.?Confusion?denies.?Fainting/blackouts?denies.?Tingling?denies.?Tr emors?denies.? * Medical History:? * Surgical History:?appendecto my 1958tonsillectomy 1966hernia surgery 2017 * Hospitalization/Major Diagno stic Procedure:?Denies Past Hospitalization * Family History:?Mother: dece ased, diagnosed with Family history of arthritis.?Father: , diagnosed with Unspecified essential hypertension.?Siblings: cancer, high blood pressure.? * Social History:?Tobacco Use:?Tobacco Use/Smoking?Are you a:?former smoker ?Additional Findings: Tobacco Non-User?Current non-smoker ?Tobacco use other than smoking?Are you an other tobacco user??No ???Drugs/Alcohol:?Drugs?Have you used drugs other than those for medical reasons in the past 12 months??No ?Alcohol Screen?Did you have a drink containing alcohol in the past year??Yes ?Points?0 ?Interpretation?Negative ???Miscellaneous:?Caffeine: yes, frequency: , 3-5 cups per day. ?no Children. ?Exercise: yes, golf, walking, bike riding, bowling. * Medications:?TakingLevothyro xine Sodium 100 MCG Tablet Oral Famotidine 20 MG Tablet TAKE 1 TABLET BY MOUTH DAILY Oral amLODIPine Besylate 5 MG Tablet Oral Taking Levothyroxine Sodium 100 MCG Tablet Oral Taking Famotidine 20 MG Tablet TAKE 1 TABLET BY MOUTH DAILY Oral Taking amLODIPine Besylate 5 MG Tablet Oral Not-Taking/PRNAtorvastatin Calcium 10 MG Tablet TAKE 1 TABLET BY MOUTH EVERY DAY Oral Medication List reviewed and reconciled with the patientNot-Taking/PRN Atorvastatin Calcium 10 MG Tablet TAKE 1 TABLET BY MOUTH EVERY DAY Oral Medication List reviewed and reconciled with the patient * Allergies:?N.K.D.A.yes[Aller gies Verified] Objective: * Vitals:?Ht: 5 ft 10 in, Wt:1 65, BMI:23.67, Shoe size: 9.5, Ht-cm: 177.8 cm, Wt- k.84 kg. * Examination: ???Orthopedic: ?BUNION:?Dorso-Medially prominent 1st MPJ , Limited 1st MPJ Dorsal ROM?NO Pain assoc with 1st MPJ ROM? b/l.?DIGITAL DEFORMITIES:?Digital contracture, PIPJ,T2, incompl-reducible with WB, or to push-up test, no over, nor underlapping , Reveals pain/swelling/redness/enlargement of DIPJ T2.?FOOTWEAR:? shoe gear properties exacerbate patients foot/toe deformity.?General Examination: ?GENERAL APPEARANCE:?Reveals a pleasant, alert, well nourished, well- developed, well hydrated individual, who demonstrates proper attention to hygiene/body habitus, and is in no acute distress, Pt serves as own historian for office visit today.?ORIENTED:?person, place, and time.?Vascular: ?DP PULSES:?2/4, B/L.?PT PULSES:?2/4, B/L.?CAPILLARY FILL TIME:?immediate, all digits, B/L.?SKIN TEMPERTURE GRADIENT OF THE LOWER EXTERMITIES:?normal, warm to cool, proximal to distal, B/L, B/L.?HAIR GROWTH/TEXTURE/ELASTICITY/TURGOR:?normal, B/L.?PIGMENTATION:?normal, B/L.?Dermatologic: ?SKIN FINDINGS:?Skin shows sign(s) of , a semi-firm, painful, non- translucent, non-pulsatile, nonmobile Sub Q tumor nayeli. 10? mm dorsal 3rd digit left foot.?X-Rays - IMAGING REPORT: ?Clinical Indication(s):? Evaluate Biomechanical Deformity.?Views:? 3 views of Foot, AP, LO, MO, LEFT.?Findings:? normal bone and soft tissue density consistent for patients age and sex.?Digits:? show asymmetrical joint space narrowing at the PIPJ /DIPJ consistent with clinical finding of hammertoe deformity T2.?HAV:?there is squaring of the 1st MTH, there is increased density of the 1st MPJ with asymmetrical joint space narrowing.?Fracture:? Negative fractures identified.? Assessment: * Assessment: 1.?Pain in left toe(s) - M79 .675?2.?Other hammer toe(s) (acquired), left foot - M20.42 (Primary), Chronic problem, Worse (4)?3.?Arthritis of joint of lesser toe, left - M19.072?4.?Ganglion cyst of right foot - M67.471, Dx New problem, Prognosis Uncertain (4),Acute problem, Complicated w/ Multiple Tx Options(4)? Plan: * Treatment: 2.?Ganglion cyst of right fo ot?Procedure: - Ganglion Cyst Injection/Aspiration * Procedures:?Aspiration:?Indication?Symptomatic Ganglion/Cyst.?Prep?The skin was prepped with alcohol with aseptic technique.?Anesthesia?Topical cryo.?Guidance?Palpation.?Aspiration?We advanced a sterile 18 gauge needle into the area for fluid collection.?Yield?The fluid was dwight yellow gel like .04 cc.?Effect?The procedure successfully decompressed the fluid collection and should relieve discomfort.?Disposition?The patient tolerated the procedure and anesthesia well and left the office alert and stable and in good condition. The wound was dressed with a dry sterile dressing.? * Procedure Codes:?53682 ASPIR ATE/INJ GANGLION CYST, Modifiers: XS 97056 X-RAY EXAM OF LEFT FOOT 2V, Modifiers: 26 , LT * Preventive Medicine:? ??Counseling:?Discussion:?-04: Office or other outpatient visit for the evaluation and management of a new patient, which required a medically appropriate history and/or examination and MODERATE level of DECISION MAKING for: 1 OR MORE CHRONIC PROBLEM(S) THATS WORSENING, 2 STABLE CHRONIC PROBLEMS, A NEWLY DIAGNOSED PROBLEM WITH UNCERTAIN PROGNOSIS, AN ACUTE COMPLICATED INJURY WITH MULTIPLE TREATMENT OPTIONS, OR AN ACUTE PROBLEM WITH ACCOMPANYING SYSTEMIC SYMPTOMS, THAT POSE(S) A MODERATE RISK OF MORBIDITY. THIS CONDITION MAY ALSO INCLUDE RX DRUG MANAGEMENT, OR A DECISON FOR MINOR SURGERY. The visit on the day of the encounter encompassed interpreting the data and educating the patient as to the nature of their condition, treatment options available according to their individual PMH, meds, allergies, and overall health/living conditions, as well as any potential risks or complications that may occur from a failure to adhere to, and participate in, the recommended course of therapy. The discussion included a complete verbal, and/or written explanation of the examination results, any x-rays taken, the proposed diagnosis, and outline of the treatment plan. A schedule for future care needs was also explained. The patient verbalized an understanding of the instructions at this time and agreed to be an active participant in their treatment. If the patient should think of any questions or concerns after the visit, I have encouraged the patient to call the office.?Digital Surgery:?Discussed and reviewed the X-rays with the patient. We discussed how the findings relate to the patients symptoms/complaints. Answered any and all questions, Digital surgery was discussed with the patient, including the risks of surgery(below), vs not having surgery (persistent pain, deformity, risk for skin ulceration/infection, loss of toe), the potential surg complications, the anesthesia, and the usual post-op course. No guarentees were given. We discussed the potential procedure complications including, but not limited to: pain, swelling, bleeding, scarring, numbness, infection, delayed/non healing, floppy/unstable/shorthened toe, recurrence, failure of the procedure, overcorrection leading to plantarflexed/downward positioned toe, recurrence, need for further surgery, as well as the possibility for loss of the toe itself. We discussed the use of local anesthesia, and the usual post-op course for healing. No guarentees were given. The patient verbally indicated a full understanding of the above conversation, and any other of their questions were answered to their satisfaction. Alternatives to the procedure were also discussed, including conservative care. I also discussed the usual post-operative course and gave no guarantees regarding outcome, I discussed surgery for a hammertoe by digital arthroplasty, We elected to try conservative treatment at the present time.?Digital Treatment:?HT- I explained to the patient the possible etiologies of Hammertoes, including genetics/foot type/shoegear/activity level/exercise routine and the risks/benefits of all the different treatment options for their pain including: No treatment at all, Rest, Ice, New/supportive/wider/deeper Shoegear, Digital Padding/Strapping/Taping/Bracing/Gel protective sleeves, Foot/Ankle AFO Bracing, Stretching exercises, Deep Tissue Massage, Arch support/shoe inserts with splay metatarsal padding, and Custom orthoses. I insisted that any digital devices be removed daily and not worn overnight for safety. The patient is to carefully examine the toes daily for any skin irritation while using any splinting or padding device. The advantages and disadvantages of each option were discussed and the patients questions re: shoegear, padding, custom vs prefabricated inserts, activity level, and consistency in home treatment regimens for optimal success were answered to their verbally confirmed satisfaction.?Ganglions:?The patient was counseled on the diagnosis, potential etiologies, and treatment options for their Ganglion condition. We discussed the risks and benefits of each option from performing no treatment, accomidative padding, aspiration, cortisone injection therapy, and surgical excision. We discussed the advantages and disadvantages of each possible treatment and importance for adherence to all the recommended therapies for optimum success and avoid potential complications such as open sore/infection/possible hospitalization. We discussed the potential effectiveness of each treatment as well as the potential complications including: pain, infection, and recurrence, and in the case of excision surgery: scarring, chronic pain, nerve damage resulting in permanent numbness, and recurrence. Patient questions re: successful outcomes for each treatment option, and the patient verbalized that all answers were clearly understood.? * Follow Up:?prn * Images: * Sign off status: Completed true * Provider:?Claudia Manuel DPM Date:?2022 Generated for Mirella larios/Faxing/eTransmitting on:?10/28/2024 03:12 PM EST History and Physical Notes * HPI (History of Present Illness) Category Sub-Category Detail Notes Category Not es Toe pain Nature: tenderness with bump Location: Left foot Duration: several months Course: worse Aggravated by: any pressure, shoes Treatments: none Examination Category Sub-Category Detail Notes Category Not es Dermatologic SKIN FINDINGS: Skin shows sign( s) of , a semi-firm, painful, non-translucent, non-pulsatile, nonmobile Sub Q tumor nayeli. 10 mm dorsal 3rd digit left foot Orthopedic BUNION: Dorso-Medially p rominent 1st MPJ , Limited 1st MPJ Dorsal ROM NO Pain assoc with 1st MPJ ROM b/l FOOTWEAR: shoe gear properties exacerbate patients foot/toe deformity DIGITAL DEFORMITIES: Digital contracture , PIPJ,T2, incompl-reducible with WB, or to push-up test, no over, nor underlapping , Reveals pain/swelling/redness/enlargement of DIPJ T2 General Examination GENERAL APPEARANCE: Reveals a pleasant, alert, well nourished, well-developed, well hydrated individual, who demonstrates proper attention to hygiene/body habitus, and is in no acute distress, Pt serves as own historian for office visit today ORIENTED: person, place, and t constantine Vascular DP PULSES (B): 2/4, B/L PT PULSES (B): 2/4, B/L CAPILLARY FILL TIME: immediate, all digi ts, B/L TEMPERTURE GRADIENT (C): normal, warm to cool, proximal to distal, B/L, B/L TROPHIC CONDITION-TEXTURE/ELASTICITY/TURGOR/HAIR GROWTH (B): normal, B/L PIGMENTATION: normal, B/L X-Rays - IMAGING REPORT Findings: normal b one and soft tissue density consistent for patients age and sex Fracture: Negative fractures i dentified Digits: show asymmetrical clarence int space narrowing at the PIPJ /DIPJ consistent with clinical finding of hammertoe deformity T2 HAV: there is squaring of the 1st MTH, there is increased density of the 1st MPJ with asymmetrical joint space narrowing Views: 3 views of Foot, AP, LO, MO, LEFT Clinical Indication(s): Evaluate Biomech anical Deformity
--- OUTSIDE RECORDS SUMMARY | 2024-10-28 15:13 | XMS_ITS ---
Author Organization [facility] Address [address] [place] [address] Care Team Providers Care Ham Sawyer Name Role Phone Ej Munoz MD Primary Care Provider Unavaila ble Kaleb, Claudia Unavailable [phone] REASON FOR VISIT NPPWK Entered Encounters Encounter Location Date Provider Diagnosis [address] [address] 06/04/2023 Claudia Manuel Plan Of Treatment No Information Progress Notes * Nico SELBY ADOB: 0 (73 yo M)Acc No.[id number]:06/04/2023 Patient:?Nico Selby :1950???Age:73 Y???Sex:Male Address:[address] [place], [place] [address] [address] * true * Date:? Generated for Jodii harriet/Sharmila/eTransmitting on:?10/28/2024 03:12 PM EST
--- OUTSIDE RECORDS SUMMARY | 2024-10-28 15:13 | XMS_ITS | Patient Health Record ---
Author Organization [facility] Address [address] [place] [address] Care Team Providers Care Overnight Houseperson Name Role Phone Ej Munoz MD Primary Care Provider Unavaila Claudia Thornton Unavailable [phone] Allergies No Known Allergies Reason For Referral No Information Medications Medication SIG (Take, Route, Frequency, Duration) [...] Problem Acquired hammer toe of left foot (6936133352130196) Other hammer toe(s) (acquired), left foot (M20.42) Active confirmed Problem Localized, primary osteoarthritis of the ankle and/or foot (384007244) Arthritis of joint of lesser toe, left (M19.072) Active confirmed Plan Of Treatment Pending Test Test Name Order Date X ray : Foot, left 2V 07/12/2023 55992- Ganglion Cyst Injection/Aspiratio n 07/12/2023 Insurance Providers Payer Name Payer Address Payer Phone Subscriber Number Group Number Insured Name Patient Relationship to Insured Coverage Start Date Coverage End Date Medicare [employer] [address] [place] [address] [id number] Usha Nico Self - patient is the insured [facility] [address] [place] [address] [id number] Uhsa Nico Self - patient is the insured Medical (General) History Medical History History ICD Code CAD (Cholesterol) covid-19 Hiatal hernia Reflux ( GERD) Sciatica chronic sinusitis thyroid High blood pressure Chicken pox Measles Surgical History Surgery Date(Month/Year) appendectomy 1957 tonsillectomy 1966 hernia surgery 2016
== END 2024-10-28 14:01 | disposition home or self-care (01) ==
PROVIDERS: PCP Internal Medicine; Visit Provider Internal Medicine
DX: M25.579 Pain in unspecified ankle and joints of unspecified foot (principal)

== ENCOUNTER → 2024-10-28 13:26 | Outpatient (BNVA) | payer MEDICARE, SELFPAY | PROVIDERS: PCP Internal Medicine; Visit Provider Internal Medicine | DX: M25.571 Pain in right ankle and joints of right foot (principal) | CPT/HCPCS: 99212 ==

== ENCOUNTER 2024-10-29 07:28 | Outpatient (REF) | payer MEDICARE, SELFPAY ==
--- OUTSIDE RECORDS SUMMARY | 2024-10-29 07:32 | XMS_ITS | Patient Health Record ---
Author Organization [facility] Address [address] [place] [address] Care Team Providers Care Hydrochloric Manufacturing Supervisor Name Role Phone Ej Munoz MD Primary Care Provider Marka julito McelroyJean-Pierre Unavailable [phone] REASON FOR REFERRAL No Information MEDICATIONS Medication SIG (Take, Route, Frequency, Duration) Notes Start Date End Date Status Famotidine 20 MG 1 TABLET BY MOUTH TW ICE A DAY for 30 Active amLODIPine Besylate 5 MG TAKE 1 TABLET E VERY DAY Oral for 90 Active Levothyroxine Sodium 100 MCG 1 capsule O rally Once a day Active Atorvastatin Calcium 10 MG TAKE 1 TABLET BY MOUTH EVERY DAY Oral for 90 Active IMMUNIZATIONS Vaccine Route Administration Date Status Comme nts Influenza Unknown 06/08/2021 Administered SOCIAL HISTORY Sex Assigned At : Social History Observation Description Sex Assigned At Unknown PROBLEMS Problem Type ICD Code Onset Dates Problem Status W/U Status Risk SNOMED Code Notes Problem 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) Active confirmed 502002040 Problem Esophagitis, unspecified (K20.9) Active confirmed Esophagi tis (57738119) Problem Encounter for screening for malignant neoplasm of colon (Z12.11) Active confirmed 466231234 Problem Encounter for screening for malignant neoplasm of rectum (Z12.12) Active confirmed Screening for malignant neoplasm of rectum (943953982) Problem Hx of adenomatous colonic polyps (Z86.010) Active confirmed 314972289 Problem Gastroesophageal reflux disease without esophagitis (K21.9) Active confirmed 986502504 Problem History of colon polyps (Z86.010) Active confirmed History of polyp of colon (589699409) Problem Diverticulosis of colon (K57.30) Active confirmed Diverticulosi s of colon (726748738) Problem Gastric polyp (K31.7) Active confirmed Gastric polyp (90062552) Problem Malagon esophagus (K22.70) Active confirmed Malagon esophagus (998005452) Problem Gastroesophageal reflux (K21.9) Active confirmed Esophageal reflux finding (996571134) PLAN OF TREATMENT Pending Test Test Name Order Date Pathology 01/25/2022 Future Test Test Name Order Date UPPER GI ENDOSCOPY 10/15/2015 COLONOSCOPY 10/15/2015 UPPER GI ENDOSCOPY 12/20/2021 COLONOSCOPY 12/20/2021 Insurance Providers Payer Name Payer Address Payer Phone Subscriber Number Group Number Insured Name Patient Relationship to Insured Coverage Start Date Coverage End Date MEDICARE OF [place] [address] [place] [id number] [phone] [id number] DARRELL SELBY Self - patient is the insured [employer] [address] [place] [address] [phone] [id number] DARRELL SELBY Self - patient is the insured MEDICAL (GENERAL) HISTORY Medical History History ICD Code Malagon's and GERD--EGD in J anuary 2010 and in 2015 revealed a small hiatal hernia, small area of Malagon's esophagus without dysplasia, and no esophagitis; benign gastric polyps Hyperlipidemia Tubular adenoma removed in --he was also noted to have some mild diverticulosis and internal hemorrhoids HTN Hypothyroidism Denies ME,DM,CVA,Lung disease,renal dise ase Kidney stone Colonoscopy December of 2015 with removal o f a small tubular adenoma Surgical History Surgery Date(Month/Year) Appendectomy Tonsillectomy and adenoidectomy Inguinal hernia
--- OUTSIDE RECORDS SUMMARY | 2024-10-29 07:33 | XMS_ITS ---
[facility] Address [address] [place] [address] Care Team Providers Care Glove Sewer Name Role Phone Ej Munoz MD Primary Care Provider Unavaila ble Black, Claudia Unavailable [phone] Allergies No Known Allergies Results Component Value [...] Problem Acquired hammer toe of left foot (5045858445197145) Other hammer toe(s) (acquired), left foot (M20.42) Active confirmed Problem Localized, primary osteoarthritis of the ankle and/or foot (562912083) Arthritis of joint of lesser toe, left (M19.072) Active confirmed Vital Signs Height 5 ft 10 in in 07/12/2023 Weight 165 lbs 07/12/2023 BMI 23.67 kg/m2 07/12/2023 Procedures Procedure Date Ordered Date Performed Result Body Sit e - Ganglion Cyst Injection/Aspiration 07/12/2023 N/A Encounters Encounter Location Date Provider Diagnosis [facility] [address] [address] 07/12/2023 Claudia Black Pain in left toe(s) [...] Nico SELBY ADOB: 0 (73 yo M)Acc No.[id number]:07/12/2023 Progress Notes Patient:?Nico Selby Provider:?Claudia Manuel DPM :1950???Age:73 Y???Sex:Male Omar e:07/12/2023 Address: [id number] Pcp:Ej Munoz MD Subjective: * Chief Complaints: [...] with a dry sterile dressing.? * Procedure Codes:?39107 ASPIR ATE/INJ GANGLION CYST, Modifiers: XS 95821 X-RAY EXAM OF LEFT FOOT 2V, Modifiers: [...] Manuel DPM Date:?2022 Generated for Mirella larios/Faxing/eTransmitting on:?10/29/2024 07:32 AM EST History and Physical Notes * HPI [...]
--- OUTSIDE RECORDS SUMMARY | 2024-10-29 07:33 | XMS_ITS ---
Author Organization [facility] Address [address] [place] [address] Care Team Providers Care Biophysics Teacher Name Role Phone Ej Munoz MD Primary Care Provider Unavaila ble Kaleb, Claudia Unavailable [phone] REASON FOR VISIT NPPWK Entered Encounters Encounter Location Date Provider Diagnosis [facility] [address] [place] [address] 06/04/2023 Claudia Manuel Plan Of Treatment No Information Progress Notes * Nico SELBY ADOB: 0 (73 yo M)Acc No.[id number]:06/04/2023 Patient:?Nico Selby :1950???Age:73 Y???Sex:Male Address: [place] [address] * true * Date:? Generated for Jodii harriet/Sharmila/eTransmitting on:?10/29/2024 07:32 AM EST
--- OUTSIDE RECORDS SUMMARY | 2024-10-29 07:33 | XMS_ITS | Patient Health Record ---
Author Organization [facility] Address [address] [place] [address] Care Team Providers Care Deliverer Merchandise Name Role Phone Ej Munoz MD Primary Care Provider Unavaila Claudia Thornton Unavailable [phone] Allergies No Known Allergies Reason For Referral [...] Problem Acquired hammer toe of left foot (4169725172553643) Other hammer toe(s) (acquired), left foot (M20.42) Active confirmed Problem Localized, primary osteoarthritis of the ankle and/or foot (140215357) Arthritis of joint of lesser toe, left (M19.072) Active confirmed Plan Of Treatment Pending Test Test Name Order Date X ray : Foot, left 2V 07/12/2023 83648- Ganglion Cyst Injection/Aspiratio n 07/12/2023 Insurance Providers Payer Name Payer Address Payer Phone Subscriber Number Group Number Insured Name Patient Relationship to Insured Coverage Start Date Coverage End Date Medicare National [employer] [address] [place] [address] [id number] Usha Nico Self - patient is the insured [facility] [address] [place] [address] [id number] Usha Nico Self - patient is the insured Medical (General) History Medical History History ICD Code CAD (Cholesterol) covid-19 Hiatal hernia Reflux ( GERD) Sciatica chronic sinusitis thyroid High blood pressure Chicken pox Measles Surgical History Surgery Date(Month/Year) appendectomy 1957 tonsillectomy 1966 hernia surgery 2016
[2024-10-29 07:46] LABS: MANUAL DIFF FLAG NO
[2024-10-29 08:25] LABS: Basophils Absolute Auto 0.1 X10*3/uL (0.0-0.2); Eosinophils Absolute Auto 0.1 X10*3/uL (0.0-0.4); Eosinophils Percent Auto 1.9 % (0-4); Hematocrit 45.9 % (42.0-52.0); Hemoglobin 15.7 g/dl (14.0-18.0); Imm Gran Abs Auto 0.02 X10*3/uL (0.00-0.03); Imm Gran Pct Auto 0.3 % (0.0-0.4); Lymphocytes Percent Auto 34.4 % (20-40); Mean Corpuscular HGB Conc 34.2 g/dl (31.0-36.0); Mean Corpuscular Hemoglobin 30.6 pg (27.0-33.0); Mean Corpuscular Volume 89.5 fL (80.0-98.0); Mean Platelet Volume 9.8 fL (9.4-12.4); Monocytes Absolute Auto 0.6 X10*3/uL (0.1-1.2); Monocytes Percent Auto 9.4 % (2-11); Neutrophils Absolute Auto 3.1 x10*3/uL (2.0-8.3); Platelet Count 254 X10*3/uL (160-400); Red Blood Count 5.13 X10*6/uL (4.60-5.80); Red Cell Distribution Width 13.3 % (11.0-16.0); White Blood Count 5.9 X10*3/uL (4.8-10.8)
[2024-10-29 08:45] LABS: Alanine Aminotransferase 39 U/L (0-40); Albumin Level 4.5 g/dL (3.5-5.0); Alkaline Phosphatase 83 U/L (39-117); Anion Gap 12 (12-20); Aspartate Amino Transferase 34 U/L (5-37); Bilirubin Total 2.4 mg/dL (0.0-1.0); Blood Urea Nitrogen 13 mg/dL (9-16); Carbon Dioxide 27 mmol/L (22-29); Chloride 107 mmol/L (96-108); Cholesterol 188 mg/dL (<200); Estimated Glomerular Filt Rate > 60; Glucose Fasting 106 mg/dL (60-99); HDL Cholesterol 71 mg/dL (>40); LDL Cholesterol Calculated 94 mg/dL (<100); Potassium 4.2 mmol/L (3.3-5.1); Sodium 142 mmol/L (135-145); Total Protein 7.4 g/dL (6.5-8.0); Triglycerides 117 mg/dL (<150)
[2024-10-29 09:06] LABS: Thyroid Stimulating Hormone 0.56 uIU/mL (0.32-4.0)
== END 2024-10-29 07:29 | disposition home or self-care (01) ==
LOC: HO.LAB 07:28
PROVIDERS: PCP Internal Medicine; Visit Provider Internal Medicine
DX: M10.9 Gout, unspecified (principal); Z13.0 Encounter for screening for diseases of the blood and blood-forming organs and certain disorders involving the immune mechanism; Z13.9 Encounter for screening, unspecified; Z13.220 Encounter for screening for lipoid disorders; Z13.29 Encounter for screening for other suspected endocrine disorder
CPT/HCPCS: 36415; 80053; 80061; 84443; 84550; 85025

== ENCOUNTER 2024-12-18 08:33 | Outpatient (REF) | payer MEDICARE, SELFPAY ==
--- NOTE | ~2024-12-18 | MM_ITS ---
EXAMINATION: DXA BONE DENSITY AXIAL HISTORY: Estrogen deficiency TECHNIQUE: [place] Dual energy absorptiometry (DEXA) of the lumbar spine, total left hip, and femoral neck was performed. COMPARISON: There are no prior studies for comparison. FINDINGS: The bone mineral density of the lumbar spine is 1.263 with a T-score of 0.4, and a Z-score of 1.0. The bone mineral density of the left total hip is 1.218 with a T-score of 0.8, and a Z-score of 1.7. The bone mineral density of the left femoral neck is 1.146 with a T-score of 0.6, and a Z-score of 2.0. FRACTURE RISK: The FRAX index suggests a risk of major osteoporotic fracture of 4.0%, and of hip fracture 0.5%. MM/XR DEXA axial skeleton IMPRESSION: Based on bone mineral density, and according to World Health Organization (WHO) criteria, the diagnosis is consistent with normal bone mineral density. All bone density values are in grams per centimeter squared (g/cm2). Statistically, 68% of repeat scans fall within 1 SD (+/- 0.010 g/cm2 for AP spine L1-L4) and 1 SD (+/- 0.012 g/cm2 for femur total) FRAX is a trademark of the [employer]'s [place] for Metabolic Bone Disease, a World Health Organization (WHO) Collaborating Center. Electronically signed by: Jean-Pierre Ocasio MD 12/18/2024 09:35 AM EDT
--- OUTSIDE RECORDS SUMMARY | 2024-12-18 09:10 | XMS_ITS ---
Author [facility] Address [address] [place] [address] Care Team Providers Care Steam Tender Name Role Phone Ej Munoz MD Primary Care Provider Unavaila ble Black, Claudia Unavailable [phone] Allergies No Known Allergies Results Component Value [...] Problem Acquired hammer toe of left foot (4560583870887059) Other hammer toe(s) (acquired), left foot (M20.42) Active confirmed Problem Localized, primary osteoarthritis of the ankle and/or foot (086241423) Arthritis of joint of lesser toe, left (M19.072) Active confirmed Vital Signs Height 5 ft 10 in in 07/12/2023 Weight 165 lbs 07/12/2023 BMI 23.67 kg/m2 07/12/2023 Procedures Procedure Date Ordered Date Performed Result Body Sit e - Ganglion Cyst Injection/Aspiration 07/12/2023 N/A Encounters Encounter Location Date Provider Diagnosis [facility] [address] [address] 07/12/2023 Claudia Black Pain in left toe(s) [...] Nico SELBY ADOB: 0 (73 yo M)Acc No.[id number]:07/12/2023 Progress Notes Patient:?Nico Selby Provider:?Claudia Manuel DPM :1950???Age:73 Y???Sex:Male Omar e:07/12/2023 Address: [id number] Pcp:Ej Munoz MD Subjective: * Chief Complaints: [...] with a dry sterile dressing.? * Procedure Codes:?54137 ASPIR ATE/INJ GANGLION CYST, Modifiers: XS 93092 X-RAY EXAM OF LEFT FOOT 2V, Modifiers: [...] Sign off status: Completed true * Provider:?Claudia aMnuel DPM Date:?2022 Generated for Mirella larios/Faxing/eTransmitting on:?12/18/2024 09:10 AM EDT History and Physical Notes * HPI (History [...]
--- OUTSIDE RECORDS SUMMARY | 2024-12-18 09:10 | XMS_ITS | Patient Health Record ---
Author Organization [facility] Address [address] [place] [address] Care Team Providers Care Glass Glazier Name Role Phone Ej Munoz MD Primary Care Provider Marka Jean-Pierre Reilly Unavailable [phone] Reason For Referral No Information Medications Medication [...] MOUTH EVERY DAY Oral for 90 Active Immunizations Vaccine Route Administration Date Status Comme nts Influenza Unknown 06/08/2021 Administered Problems Problem Type SNOMED Code ICD Code Onset Dates Problem Status W/U Status Risk Notes Problem 734569853 Encounter for screening for malignant neoplasm of colon (Z12.11) Active confirmed Problem Esophagitis (64257244) Esophagitis, unspecified (K20.9) Active confirmed Problem 303971144 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) Active confirmed Problem Screening for malignant neoplasm of rectum (234676822) Encounter for screening for malignant neoplasm of rectum (Z12.12) Active confirmed Problem 430883785 Gastroesophageal reflux disease without esophagitis (K21.9) Active confirmed Problem History of polyp of colon (124305150) History of colon polyps (Z86.010) Active confirmed Problem Gastric polyp (92725921) Gastric polyp (K31.7) Active confirmed Problem 075083218 Hx of adenomatou s colonic polyps (Z86.010) Active confirmed Problem 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) Active confirmed Problem Esophageal reflux finding (489877571) Gastroesophageal reflux (K21.9) Active confirmed Problem Diverticulosis of colon (750736407) Diverticulosis of colon (K57.30) Active confirmed Plan Of Treatment Pending Test Test Name Order Date Pathology 01/25/2022 Future Test Test Name Order Date UPPER GI ENDOSCOPY 10/15/2015 COLONOSCOPY 10/15/2015 UPPER GI ENDOSCOPY 12/20/2021 COLONOSCOPY 12/20/2021 Insurance Providers Payer Name Payer Address Payer Phone Subscriber Number Group Number Insured Name Patient Relationship to Insured Coverage Start Date Coverage End Date MEDICARE OF [place] [address] [place] [address] [id number] DARRELL SELBY Self - patient is the insured [employer] [address] [place] [address] [id number] DARRELL SELBY Self - patient is the insured Medical (General) History Medical History History ICD Code Malagon's and GERD--EGD in J anuary 2010 and in 2015 revealed a small hiatal hernia, small area of Malagon's esophagus without dysplasia, and no esophagitis; benign gastric polyps Hyperlipidemia Tubular adenoma removed in --he was also noted to have some mild diverticulosis and internal hemorrhoids HTN Hypothyroidism Denies PR,DM,CVA,Lung disease,renal dise ase Kidney stone Colonoscopy December of 2015 with removal o f a small tubular adenoma Surgical History Surgery Date(Month/Year) Appendectomy Tonsillectomy and adenoidectomy Inguinal hernia
--- OUTSIDE RECORDS SUMMARY | 2024-12-18 09:10 | XMS_ITS ---
Author Name [facility] Organization Unknown History of Medication Use Medication Directions Dispensed Refills Start Date End Date Stat atorvastatin 10 mg tablet TAKE 1 TABLET BY MOUTH EVERY DAY active sodium fluoride 1.1 % dental paste APPLY A PEA SIZED TO A TOOTHBRUSH. BRUSH FOR TWO MINUTES. DO NOT EAT, DRINK OR RINSE FOR 30 MINUTES. active methylprednisolone 4 mg tablets in a dose pack TAKE 6 TABLETS ON DAY 1 DIRECTED ON PACKAGE AND DECREASE BY 1 TAB EACH DAY FOR A TOTAL OF 6 DAYS active levothyroxine 100 mcg tablet TAKE 1 TABLET BY MOUTH EVERY DAY active cyclobenzaprine 10 mg tablet TAKE 1 TABLET BY MOUTH THREE TIMES A DAY NEEDED FOR MUSCLE SPASMS FOR 10 DAYS active famotidine 20 mg tablet TAKE 1 TABLET BY MOUTH EVERY DAY active naproxen 500 mg tablet TAKE 1 TABLET BY MOUTH TWICE A DAY NEEDED FOR PAIN active ofloxacin 0.3 % eye drops INSTILL 2 DROPS INTO AFFECTED EYE 4 TIMES A DAY FOR 5 DAYS active amlodipine 5 mg tablet TAKE 1 TABLET BY MOUTH ONCE DAILY active Encounters Encounter Type Encounter Reason Primary Diagnosis Location Date Ambulatory [facility] 12/01/2024 Ambulatory [facility] 11/10/2024 Ambulatory [facility] 11/10/2024 Ambulatory [facility] 11/10/2024 Ambulatory [facility] 11/10/2024 Ambulatory [facility] 11/05/2024 Ambulatory [facility] 10/20/2024 Ambulatory [facility] 10/20/2024 Ambulatory [facility] 10/20/2024
--- OUTSIDE RECORDS SUMMARY | 2024-12-18 09:10 | XMS_ITS | Patient Health Record ---
Author Organization [facility] Address [address] [place] [address] Care Team Providers Care Data Network Architect Name Role Phone Ej Munoz MD Primary Care Provider Unavaila Claudia Thornton Unavailable [phone] Allergies No Known Allergies Reason For Referral [...] Problem Acquired hammer toe of left foot (8661037662389950) Other hammer toe(s) (acquired), left foot (M20.42) Active confirmed Problem Localized, primary osteoarthritis of the ankle and/or foot (427912084) Arthritis of joint of lesser toe, left (M19.072) Active confirmed Plan Of Treatment Pending Test Test Name Order Date X ray : Foot, left 2V 07/12/2023 69348- Ganglion Cyst Injection/Aspiratio n 07/12/2023 Insurance Providers Payer Name Payer Address Payer Phone Subscriber Number Group Number Insured Name Patient Relationship to Insured Coverage Start Date Coverage End Date Medicare National Govt Sv[employer] [address] [place] [address] [id number] Usha Nico Self - patient is the insured [facility] [address] [place] [address] [id number] Usha Nico Self - patient is the insured Medical (General) History Medical History History ICD Code CAD (Cholesterol) covid-19 Hiatal hernia Reflux ( GERD) Sciatica chronic sinusitis thyroid High blood pressure Chicken pox Measles Surgical History Surgery Date(Month/Year) appendectomy 1957 tonsillectomy 1966 hernia surgery 2016
== END 2024-12-18 08:34 | disposition home or self-care (01) ==
LOC: HO.MAMMO 08:33
PROVIDERS: Visit Provider Internal Medicine
DX: Z13.89 Encounter for screening for other disorder (principal)
CPT/HCPCS: 77080

== ENCOUNTER → 2024-12-18 08:45 | Outpatient (BNV) | payer MEDICARE, SELFPAY | PROVIDERS: Visit Provider Radiology Diagnostic Radiology | DX: R60.0 Localized edema (principal); E29.1 Testicular hypofunction | CPT/HCPCS: 77080; 93971 ==

== ENCOUNTER 2024-12-18 12:53 | Outpatient (AMB) | payer MEDICARE, SELFPAY ==
[2024-12-18 13:00] VITALS: BP 166/100; PULSE 90; O2SAT 98; BMI 24.4
--- NOTE | 2024-12-18 13:00 | MHC.PC.OV ---
Vital Signs 12/18/24 13:00 Height 5 ft 10 in Weight 170 lb BMI 24.4 BP 166/100 H Blood Pressure Location Lt brachial Position Sitting Pulse 90 Pulse Source Pulse Oximeter Pulse Oximetry (%) 98 Oxygen Delivery Method Room Air Intake Visit Reasons: swollen RT foot Masonry Instructor Required: No Accompanied by: Self / Same As Patient Allergies lisinopril Allergy (Unknown, Verified 12/18/24 13:03) cough Tobacco use date assessed: 10/28/24 Fall risk assessment: 1 Fall in past year Last assessed Fall Risk: 12/18/24 Dental Screening Dental Screen Date: 10/28/24 HPI swollen RT foot HPI Details continued edema right lower extremity; initial neg [facility] Medical History (Updated 12/18/24 @ 13:12 by Ej Munoz MD) Edema leg History of kidney stones HTN (hypertension) Hyperlipidemia GERD (gastroesophageal reflux disease) Malagon's esophagus Acute sinusitis Screening for colon cancer Hypothyroidism Surgical History Hx of esophagogastroduodenoscopy History of colonoscopy History of inguinal hernia repair History of appendectomy Family History Father Medical history unknown Mother Medical history unknown Family/Other Prostate cancer Colon polyps Social History Housing: House Alcohol intake: current Alcohol intake frequency: a few times a month Patient Tobacco Use Status: Former Tobacco user Tobacco use type: Cigarette e-Cigarette/Vaping Use: Never Used Second Hand Smoke Exposure: Yes service: No Current occupational status: retired Cognitive needs: No Hearing needs: No Vision needs: Yes Questionnaire Thrive Questionnaire Date Thrive assessed: 10/28/24 BLAISE-7 AMB Questionnaire BLAISE-7 Date BLAISE - 7 assessed: 10/28/24 Source: Developed by Drs. Jean-Pierre Tilley, Julia David, Kalia Jimenez and colleagues, with an educational trey from [email or web address]. Review of Systems Const Denies chills, Denies headache(s) and Denies weight loss ENT Denies headache(s) Card Denies chest pain, Denies syncope, Denies irregular heart rhythm and Denies dyspnea Resp Denies chest congestion, Denies cough and Denies dyspnea GI Denies abdominal pain, Denies change in stool character, Denies nausea and Denies vomiting Musc Denies deformity and Denies joint swelling Neuro Denies syncope and Denies headache(s) Physical exam (Primary Care) Vital Signs: Last Vital Signs Pulse 90 12/18/24 13:00 BP 166/100 H 12/18/24 13:00 Pulse Ox 98 12/18/24 13:00 Oxygen Delivery Method Room Air 12/18/24 13:00 BMI result Body Mass Index 24.4 Tobacco/Smoking Status: Tobacco use Status Tobacco use date assessed 10/28/24 12/18/24 13:04 Patient Tobacco Use Status Former Tobacco user 12/18/24 13:04 Tobacco use type Cigarette 12/18/24 13:04 e-Cigarette/Vaping Use Never Used 12/18/24 13:04 Thrive Assessment: Date of Thrive Assessment Date Thrive assessed 10/28/24 12/18/24 13:04 Const General: cooperative, comfortable, no acute distress and alert Neck Neck: Yes no lymphadenopathy Thyroid: Thyroid normal Resp Effort & Inspection: normal respiratory effort Auscultation: clear to auscultation bilaterally Percussion: percussion normal Cardio Jugular venous distension: no JVD Palpation: normal PMI Rate: regular rate Rhythm: regular rhythm Heart sounds: S1 normal heart sound present and S2 normal heart sound present GI Inspection: Yes normal to inspection Palpation (GI): No hepatosplenomegaly present Skin General skin exam: no rashes or lesions noted Extrem Other: 2+ edema right lower extremity Coding Level of Care Code Est Pt Level 3 (43367) Diagnoses Edema leg R60.0 Assessment & Plan Assessment & Plan (1) Edema leg: Code(s): R60.0 - Localized edema Category: Medical Plan: venous US and pelvic US to r/o adenpathy Orders: Orders US venous duplex LE RT 12/18/24 R60.0 - Localized edema
--- OUTSIDE RECORDS SUMMARY | 2024-12-18 16:13 | XMS_ITS | Data Portability ---
Author Organization [place] [facility] Jean Pierre Gabriel [facility] [place] Address [address] [place] [address] Assessment Encounter Date Assessment Date Assessment LastModified by Organization Details LastModified Time 11/10/2024 11/10/2024 Nico has ongoing calf pain after an injury bowling. He has had intermittent swelling in his calf but an ultrasound to rule out a DVT. He also has some lateral ankle pain. He does get intermittent swelling and is frustrated. He appears to have an ankle strain and mild degree of sinus Tarsi syndrome. Unfortunate, he is leaving for a golf trip tomorrow. We discussed aggravate alleviating factors. We discussed the role of activity modification and anti-inflammato dave. He does have reflux. We discussed trying Voltaren gel. He admits that symptoms are not severe enough for him to stop golfing. We discussed additional options including wearing compression stockings when he is on his flight. This may help with some of his intermittent swelling. He would like to monitor his symptoms. He is welcome return when he returns back from [place] for further evaluation and treatment. All questions answered to his satisfaction. Patient was seen and evaluated by Hang Bowen PA-C in indirect conjunction with Dr. Bourgeois. The provider agrees with the history, physical examination, recommended tests/diagnosti c imaging, and treatment plan. [email or web address] Not available 11/29/2024 14:28:22 Plan of Treatment Reminders Order Date Submit Date Provider Last Modified By Organization Details Last Modified Time Details Appointments None recorde d. Lab None recorde d. Referral None recorde d. Procedures None recorde d. Surgeries None recorde d. Imaging XR, tibia + fibula, 2 view 025 11/10/19 25 [email or web address] 1 [facility], [address], [address], [place], [address], 08:46:12 Medication Orders None recorde d. Patient TargetsNo targets recorded. Patient Instructions Encounter Date Encounter Id Patient Instructions Last Modified By Organization Details Last Modified Time 11/10/2024 [id number] views of the right tibia and fibula were obtained in the [place] office on 11/10/2024 including AP and lateral. X-rays demonstrated normal bone mineralization. No cortical lesions or fractures. Images interpreted by: ENRIQUETA [email or web address] Not available 11/29/2024 14:29:35 Reason for Referral None Reported. Results Created Date Observation Date Name Description Value Unit Range Abnormal Flag Note LastModifiedBy Organization Detail LastModifiedTime 11/10/19 25 imagi ng/di agnos tic resul t No observ ation record ed. [email or web address] Not Available 2024 10:56:47 11/10/19 25 imagi ng/di agnos tic resul t No observ ation record ed. [email or web address] Not Available 2024 10:58:04 11/10/19 25 imagi ng/di agnos tic resul t No observ ation record ed. [email or web address] Not Available 2024 11:03:00 11/10/19 25 imagi ng/di agnos tic resul t No observ ation record ed. [email or web address] Not Available 2024 11:04:01 11/10/19 25 imagi ng/di agnos tic resul t No observ ation record ed. [email or web address] Not Available 2024 11:05:21 Result Notes None recorded. Procedures Surgical History Date Name Laterality Status Provider Name and Address Organization Details Recorded Time Appendectomy completed [facility] - [facility], 11/10/2024 09:56:50 tonsillectomy completed [facility] - [facility] 11/10/2024 09:56:56 Imaging Results Imaging Date Name Status LastModified by [facility] Details LastModified Time 11/10/2024 imaging/diag nostic result completed Information not available 11/10/2024 10:56:47 11/10/2024 imaging/diag nostic result completed Information not available 11/10/2024 10:58:04 11/10/2024 imaging/diag nostic result completed Information not available 11/10/2024 11:03:00 11/10/2024 imaging/diag nostic result completed Information not available 11/10/2024 11:04:01 11/10/2024 imaging/diag nostic result completed Information not available 11/10/2024 11:05:21 Procedure Notes None recorded. Medical Equipment None Reported. Allergies No known drug allergies Medications Name Sig Start Date Stop Date Status Note LastModified by Organization Details LastModified Time cyclobenzaprin e 10 mg tablet TAKE 1 TABLET BY MOUTH THREE TIMES A DAY NEEDED FOR MUSCLE SPASMS FOR 10 DAYS active Not Available Not Available No t Available atorvastatin 10 mg tablet TAKE 1 TABLET BY MOUTH EVERY DAY active Not Available Not Available No t Available ofloxacin 0.3 % eye drops INSTILL 2 DROPS INTO AFFECTED EYE 4 TIMES A DAY FOR 5 DAYS active Not Available Not Available No t Available amlodipine 5 mg tablet TAKE 1 TABLET BY MOUTH ONCE DAILY active Not Available Not Available No t Available levothyroxine 100 mcg tablet TAKE 1 TABLET BY MOUTH EVERY DAY active Not Available Not Available No t Available famotidine 20 mg tablet TAKE 1 TABLET BY MOUTH EVERY DAY active Not Available Not Available No t Available methylpredniso lone 4 mg tablets in a dose pack TAKE 6 TABLETS ON DAY 1 DIRECTED ON PACKAGE AND DECREASE BY 1 TAB EACH DAY FOR A TOTAL OF 6 DAYS active Not Available Not Available No t Available naproxen 500 mg tablet TAKE 1 TABLET BY MOUTH TWICE A DAY NEEDED FOR PAIN active Not Available Not Available No t Available sodium fluoride 1.1 % dental paste APPLY A PEA SIZED TO A TOOTHBRUS H. BRUSH FOR TWO MINUTES. DO NOT EAT, DRINK OR RINSE FOR 30 MINUTES. active Not Available Not Available No t Available Vitals Date Recorded Body height Body mass index (BMI) Body weight Provider Name and Address Organization Details Last Updated DateTime 11/10/2024 177.8 cm 24.4 kg/m2 45631.7 g [facility] [place] [facility], 11/10/2024 09:55:33 Social History Question Answer Notes LastModified by Organizat ion Details LastModified Time Tobacco Smoking Status Former Smoker Nat Sims kamini [place] [facility] 11/10/2024 09:56:17 What Is Your Level Of Alcohol Consumption? Occasional Information not available 11/10/2024 How Many Times Per Week Do You Consume Alcohol? 1-2 Times Per Week Information not available 11/10/2024 When Did You Quit Smoking? 16+yearssincel penny Information not available 11/10/2024 Do You Use Any Illicit Or Recreational Drugs? No Information not available 11/10/2024 Do You Or Have You Ever Used Any Other Forms Of Tobacco Or Nicotine? No Information not available 11/10/2024 Sex: Unknown Functional Status None recorded. Mental Status None recorded. Family History Relationship Description Onset Age of this Age Resolved Age Notes LastModified by Organization Details LastModified Time Mother History of cancer of unknown primary site [email or web address] Not available 12/2024 09:56:40 Father History of cancer of unknown primary site [email or web address] Not available 12/2024 09:56:40 Brother History of cancer of unknown primary site [email or web address] Not available 12/2024 09:56:40 Medical History Condition Response Thyroid Problems Y Reflux/GERD Y Hypertension Y Past Encounters Encounter ID Performer Location Encounter Start Date Encounter Closed Date Diagnosis/Indication Diagnosis SNOMED-CT Code Diagnosis ICD10 Code Diagnosis Note [id number] Danae Bourgeois MD [facility] [address] [place] [phone] 11/10/2024 08:54:38 11/10/2024 10:25:22 Pain in right lower limb 822533369 M79.604 Health Concerns Section Related Observation LastModified by Organization Detai ls LastModified Time None Recorded Concern Status LastModified by Organization Details LastModified Time None Recorded Advance Directives Directive None Recorded Payers Encounter Date Sequence Insurance Name Policy Number Policy Reynolds Covered Member ID Reynolds Member ID Guarantor Name 11/10/2024 2 [place] [id number] Nico Kerr [id number] Nico Kerr 11/10/2024 1 [place]: [place] Nico Kerr [id number] Nico Kerr Notes Date Note Type Note Provider Name and Address Organization Details Recorded Time 11/10/2024 text/html Patient is a 74-year-old male who presents today with 2 weeks of right calf pain. Symptoms started after he was bowling. He remembers twisting his leg and had some discomfort. He reported intermittent swelling in his calf. He was seen at [facility] emergency room and an ultrasound and x-rays were obtained. They were both reported as negative. Pain is in the lateral calf and ankle. He has a hard time weightbearing at times. Symptoms are not constant. He presents today for orthopedic consultation. Unfortunately, he is leaving in the morning for [place] to go golfing. He denies numbness or tingling in his foot. Past medical history significant for thyroid dysfunction, hypertension and reflux. He is a former smoker. Rare alcohol intake. Denies recreational drug use. HANG BWOEN PA-C [address], [place], [address], [facility] 11/29/2024 14:30:36
== END 2024-12-18 13:13 | disposition home or self-care (01) ==
LOC: HO.HMCH 12:53
PROVIDERS: PCP Internal Medicine; Visit Provider Internal Medicine
DX: R60.0 Localized edema (principal)

== ENCOUNTER 2024-12-18 13:38 | Outpatient (REF) | payer MEDICARE, SELFPAY ==
--- NOTE | ~2024-12-18 | US_ITS ---
EXAMINATION: US LOWER EXTREMITY VEINS LIMITED FOLLOW UP RIGHT HISTORY: R60.0 - Localized edema COMPARISON: Comparison is made with the prior examination dated 10/27/2024. TECHNIQUE: Duplex and color Doppler sonographic examination of the deep venous system of the right lower extremity was performed. FINDINGS: The common femoral, superficial femoral, and popliteal veins are patent demonstrating normal compressibility, spontaneous flow, and augmentation. There is a normal color and spectral Doppler waveform appearance of the visualized deep venous system above the knee. The posterior tibial and peroneal veins are patent. Incidental note is made of a probable fat-containing right inguinal hernia at the site of inguinal swelling. US/US venous duplex LE RT IMPRESSION: 1. No evidence of acute DVT in the right lower extremity. 2. Probable fat-containing right inguinal hernia. Electronically signed by: Jean-Pierre Ocasio MD 12/18/2024 02:55 PM EDT
== END 2024-12-18 13:39 | disposition home or self-care (01) ==
LOC: HO.US 13:38
PROVIDERS: PCP Internal Medicine; Visit Provider Internal Medicine
DX: R60.0 Localized edema (principal); Z13.820 Encounter for screening for osteoporosis; M85.80 Other specified disorders of bone density and structure, unspecified site
CPT/HCPCS: 77080; 93971; 99212

== ENCOUNTER 2025-01-08 08:48 | Outpatient (AMB) | payer MEDICARE, SELFPAY ==
--- OUTSIDE RECORDS SUMMARY | 2025-01-08 08:55 | XMS_ITS | Patient Health Record ---
Author Organization [facility] Address [address] [place] [address] Care Team Providers Care Carpet Installer Name Role Phone Ej Munoz MD Primary Care Provider Unavaila Claudia Thornton Unavailable [phone] Allergies No Known Allergies Reason For Referral [...] Problem Acquired hammer toe of left foot (8946274450092081) Other hammer toe(s) (acquired), left foot (M20.42) Active confirmed Problem Localized, primary osteoarthritis of the ankle and/or foot (788050985) Arthritis of joint of lesser toe, left (M19.072) Active confirmed Plan Of Treatment Pending Test Test Name Order Date X ray : Foot, left 2V 07/12/2023 88826- Ganglion Cyst Injection/Aspiratio n 07/12/2023 Insurance Providers Payer Name Payer Address Payer Phone Subscriber Number Group Number Insured Name Patient Relationship to Insured Coverage Start Date Coverage End Date Medicare National [employer] [address] [place] [address] [id number] Usha Nico Self - patient is the insured [facility] [address] [place] [address] [id number] Usha Nico Self - patient is the insured Medical (General) History Medical History History ICD Code CAD (Cholesterol) covid-19 Hiatal hernia Reflux ( GERD) Sciatica chronic sinusitis thyroid High blood pressure Chicken pox Measles Surgical History Surgery Date(Month/Year) appendectomy 1957 tonsillectomy 1966 hernia surgery 2016
--- OUTSIDE RECORDS SUMMARY | 2025-01-08 08:55 | XMS_ITS | Patient Health Record ---
Author Organization 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) Active confirmed Problem Screening for malignant neoplasm of rectum (545697154) Encounter for screening for malignant neoplasm of rectum (Z12.12) Active confirmed Problem 496426947 Gastroesophageal reflux disease without esophagitis (K21.9) Active confirmed Problem History of polyp of colon (255075154) History of colon polyps (Z86.010) Active confirmed Problem Gastric polyp (73174213) Gastric polyp (K31.7) Active confirmed Problem 669895157 Hx of adenomatou s colonic polyps (Z86.010) Active confirmed Problem 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 Problem Esophageal reflux finding (066777754) Gastroesophageal reflux (K21.9) Active confirmed Problem Diverticulosis of colon (718695554) Diverticulosis of colon (K57.30) Active confirmed Plan [...] [place] [address] [place] [address] [phone] [id number] DARRELL SELBY Self - patient is the insured [employer] [address] [place] [phone] [id number] DARRELL SELBY Self - patient is the [...] diverticulosis and internal hemorrhoids HTN Hypothyroidism Denies FL,DM,CVA,Lung disease,renal dise ase Kidney stone Colonoscopy December of 2015 with removal o f a small tubular adenoma Surgical History Surgery Date(Month/Year) Appendectomy Tonsillectomy and adenoidectomy Inguinal hernia
--- OUTSIDE RECORDS SUMMARY | 2025-01-08 08:55 | XMS_ITS | Data Portability ---
Author Organization [place] [facility] Jean Pierre [facility] [place] Address [address] [place] [address] Assessment Encounter Date Assessment Date Assessment LastModified [...] welcome return when he returns back from [place] for further evaluation and treatment. All questions answered to his satisfaction. Patient was seen and evaluated by Hang Bowen PA-C in indirect conjunction with Dr. Bourgeois. The provider agrees with the history, physical examination, recommended tests/diagnosti c imaging, and treatment plan. Not available 11/29/2024 14:28:22 Plan of Treatment Reminders Order Date Submit Date Provider Last Modified By Organization Details Last Modified Time Details Appointments None recorde d. Lab None recorde d. Referral None recorde d. Procedures None recorde d. Surgeries None recorde d. Imaging XR, tibia + fibula, 2 view 025 11/10/19 25 [email or web address] 1 [facility], [address], [place], [address], 08:46:12 Medication Orders None recorde d. Patient TargetsNo targets recorded. Patient Instructions Encounter Date Encounter Id Patient Instructions Last Modified By Organization Details Last Modified Time 11/10/2024 [id number] views of the right tibia and fibula were obtained in the [place] office on 11/10/2024 including AP and lateral. [...] Address Organization Details Recorded Time Appendectomy completed [facility] - [facility], 11/10/2024 09:56:50 tonsillectomy completed [facility] 11/10/2024 09:56:56 Imaging Results Imaging Date Name Status LastModified by [facility] Details LastModified Time 11/10/2024 [...] Updated DateTime 11/10/2024 177.8 cm 24.4 kg/m2 [facility], 11/10/2024 09:55:33 Social History Question Answer Notes LastModified by Organizat ion Details LastModified Time Tobacco Smoking Status Former Smoker Nat Sims kamini [place] [facility] 11/10/2024 09:56:17 What Is Your Level [...] SNOMED-CT Code Diagnosis ICD10 Code Diagnosis Note [id number] Danae Bourgeois MD [facility] [address] [place] [phone] 11/10/2024 08:54:38 11/10/2024 10:25:22 Pain in right lower limb 701535377 M79.604 Health Concerns Section Related Observation LastModified by Organization Detai ls LastModified Time None Recorded Concern Status LastModified by Organization Details LastModified Time None Recorded Advance Directives Directive None Recorded Payers Encounter Date Sequence Insurance Name Policy Number Policy Reynolds Covered Member ID Reynolds Member ID Guarantor Name 11/10/2024 2 [place] [id number] Nico Kerr [id number] Nico Kerr 11/10/2024 1 [place]ARE [place]: [place] Nico Kerr [id number] Nico Kerr Notes Date Note Type Note Provider Name and Address Organization Details Recorded Time 11/10/2024 text/html Patient is a 74-year-old male who presents today with 2 weeks of right calf pain. Symptoms started after he was bowling. He remembers twisting his leg and had some discomfort. He reported intermittent swelling in his calf. He was seen at [facility] emergency room and an ultrasound and x-rays were obtained. They were both reported as negative. Pain is in the lateral calf and ankle. He has a hard time weightbearing at times. Symptoms are not constant. He presents today for orthopedic consultation. Unfortunately, he is leaving in the morning for [place] to go golfing. He denies numbness or tingling in his foot. Past medical history significant for thyroid dysfunction, hypertension and reflux. He is a former smoker. Rare alcohol intake. Denies recreational drug use. HANG BOWEN PA-C [address], [place], [address], [place] [facility] 11/29/2024 14:30:36
--- OUTSIDE RECORDS SUMMARY | 2025-01-08 08:56 | XMS_ITS ---
Author Organization [facility] Address [address] [place] [address] Care Team Providers Care Template Worker Name Role Phone Ej Munoz MD Primary Care Provider Unavaila ble Black, Claudia Unavailable [phone] Allergies No Known Allergies Results Component Value [...] Problem Acquired hammer toe of left foot (5017980345343996) Other hammer toe(s) (acquired), left foot (M20.42) Active confirmed Problem Localized, primary osteoarthritis of the ankle and/or foot (230970057) Arthritis of joint of lesser toe, left (M19.072) Active confirmed Vital Signs Height 5 ft 10 in in 07/12/2023 Weight 165 lbs 07/12/2023 BMI 23.67 kg/m2 07/12/2023 Procedures Procedure Date Ordered Date Performed Result Body Sit e - Ganglion Cyst Injection/Aspiration 07/12/2023 N/A Encounters Encounter Location Date Provider Diagnosis [facility] [address] [address] 07/12/2023 Claudia Black Pain in left toe(s) [...] Nico SELBY ADOB: 0 (73 yo M)Acc No.[id number]:07/12/2023 Progress Notes Patient:?Nico Selby Provider:?Claudia Manuel DPM :1950???Age:73 Y???Sex:Male Omar e:07/12/2023 Address: [address] [place] [id number] Pcp:Ej Munoz MD Subjective: * Chief Complaints: [...] with a dry sterile dressing.? * Procedure Codes:?88872 ASPIR ATE/INJ GANGLION CYST, Modifiers: XS 03102 X-RAY EXAM OF LEFT FOOT 2V, Modifiers: [...] Manuel DPM Date:?2022 Generated for Mirella larios/Faxing/eTransmitting on:?01/08/2025 08:55 AM EDT History and Physical Notes * [...] Pain assoc with 1st MPJ ROM b/l FOOTWEAR EVALUATION: shoe gear propertie s exacerbate patients foot/toe deformity DIGITAL DEFORMITIES: Digital [...]
--- NOTE | 2025-01-08 09:01 | A.OFFVIS_ITS ---
Intake Visit Reasons: [facility]TER/[facility] referral for localized edema Intake Note: New patient presents for edema. Patient states the swelling started in October of 2024 after rolling his right ankle bowling. Sore and painful. 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 Complaints include pain and discomfort of the right posterior calf and swelling of lower extremities. It has been affecting their daily activities including walking and physical activity. It is noted more so in the right leg. He states he is very active with bowling in the wintertime and golfing in the summertime. He is a former smoker, quit thirty years ago but did smoke 1-1.5 packs per day for 22 years. He is not a diabetic. He states there is some history of varicose veins in his family. Prior to [facility] he worked on his feet most of the time. He remains very active in [facility]. He has been ruled out for DVT twice once in October and once in December, both times negative. He did roll his ankle in the beginning of October, and does continue with swelling and discomfort in that ankle intermittently, relieved with naproxen as needed. Patient denies any previous venous surgery or injections. Patient denies any history of DVT/ PE. Patient denies any history of phlebitis. Trial of compression includes - elevation and compression stockings, both of which he states helps They now present for vascular evaluation regarding their varicose veins. [facility] Medical History Edema leg History of kidney stones HTN (hypertension) Hyperlipidemia GERD (gastroesophageal reflux disease) Malagon's esophagus Acute sinusitis Screening for colon cancer Hypothyroidism Surgical History Hx of esophagogastroduodenoscopy History of colonoscopy History of inguinal hernia repair History of appendectomy Family History Father Medical history unknown Mother Medical history unknown Family/Other Prostate cancer Colon polyps Social History Housing: House Alcohol intake: current Alcohol intake frequency: a few times a month Patient Tobacco Use Status: Former Tobacco user Tobacco use type: Cigarette e-Cigarette/Vaping Use: Never Used Second Hand Smoke Exposure: Yes service: No Current occupational status: retired Cognitive needs: No Hearing needs: No Vision needs: Yes Review of Systems Const Reports as per HPI and Denies weakness ENT Reports Normal hearing present and Denies dizziness Card Reports as per HPI, Denies chest pain, Denies chest pain at rest, Denies chest pain with activity, Denies dyspnea and Denies dyspnea on exertion Resp Reports as per HPI, Denies cough, Denies dyspnea and Denies dyspnea on exertion GI Reports as per HPI, Denies abdominal pain, Denies nausea and Denies vomiting Musc Denies numbness Skin/Breast Reports as per HPI, Denies erythema and Denies wounds Neuro Reports Normal hearing present, Denies dizziness, Denies numbness, Denies Sensory deficit (Neuro) and Denies weakness Psych Reports no additional complaints Endo Reports no additional complaints Physical Exam Const General: healthy appearing and no acute distress Orientation/consciousness: patient oriented x3 HEENT Head: Yes normal to inspection Ears: hearing grossly normal bilaterally Mouth: Normal oral and palatal mucosa present Resp Effort & Inspection: normal respiratory effort and able to speak in complete sentences Auscultation: clear to auscultation bilaterally Cardio Jugular venous distension: no JVD Rate: regular rate Rhythm: regular rhythm Heart sounds: S1 normal heart sound present and S2 normal heart sound present Bruits: no abdominal aortic bruits, no carotid bruits, no femoral bruits and no renal bruits Peripheral pulses: Peripheral pulses 2+ throughout GI Inspection: Yes normal to inspection Palpation (GI): No Abdominal aortic bruit present Skin General skin exam: no rashes or lesions noted Wounds: no wounds Hair: normal Neuro General: patient oriented x3 Cranial nerves: Yes Normal hearing present Cognition (Neuro): normal cognition Gait exam (Neuro): Normal gait present Motor exam (neuro): 5/5 motor strength present throughout Sensory Exam: No Sensory deficit (Neuro) Extrem Other: Right lower extremity: trace peripheral edema noted. Pain to palpation in the posterior calf, laterally, appx 4cm below the knee; no injuries or bruises noted in the area. No discoloration noted. Palpable DP pulses. No varicosities or tortuosities noted. CEAP: C - 3 E - primary A - superficial P - reflux General: Yes normal to inspection, Yes full ROM, Yes capillary refill normal and Yes normal gait Assessment & Plan Assessment & Plan (1) Varicose veins of right lower extremity with inflammation: Code(s): I83.11 - Varicose veins of right lower extremity with inflammation Category: Medical Plan: Nico is presenting today on a referral from his PCP for ongoing right lower extremity swelling and pain. He has been r/o for DVT in Oct and December. I discussed the importance of wearing compression socks on his upcoming vacation on the plane. I discussed that he can get the US done prior to or after the vacation, whichever scheduling worked best for him. In short, the patient has evidence of venous insufficiency. I have discussed the pathophysiology with the patient. In addition I have provided informational material regarding venous disease to the patient. We have discussed conservative measures including compression, elevation, and exercise. We discussed the importance of continuing with compression stockings daily. I have taken the liberty of ordering venous insufficiency testing with the patient. They will follow up with me after testing. The patient had an opportunity to ask questions regarding the treatment plan. All questions were answered. Imaging studies, laboratory studies and physical exam results were discussed and reviewed in detail. No major barriers to understanding were identified. The patient expressed understanding and agreement with the above treatment plan. The patient is aware they should contact our office by phone for worsening of the current condition or the appearance of new symptoms. Thank you for allowing me to participate in the vascular care of this patient. If you have any questions or concerns regarding the treatment for the above condition please do not hesitate to contact me. The office telephone contact is [phone]. This note is constructed using voice recognition software. While every effort has been made to ensure accuracy, transport company manager errors may have been included. Thank you for allowing me to participate in the care of your patient. Yours sincerely, VIPIN Pérez Orders: Orders US venous duplex LE BI 1 Week I83.11 - Varicose veins of right lower extremity with inflammation Coding Level of Care Code New Pt Level 4 (40697) Diagnoses Varicose veins of right lower extremity with inflammation I83.11
== END 2025-01-08 09:33 | disposition home or self-care (01) ==
LOC: HO.HVS 08:48
PROVIDERS: PCP Internal Medicine; Visit Provider Physician Assistant Surgical
DX: I83.11 Varicose veins of right lower extremity with inflammation (principal)
CPT/HCPCS: 99204

== ENCOUNTER → 2025-01-08 08:48 | Outpatient (BNVA) | payer MEDICARE, SELFPAY | PROVIDERS: PCP Internal Medicine; Visit Provider Physician Assistant Surgical | DX: I83.11 Varicose veins of right lower extremity with inflammation (principal) | CPT/HCPCS: 99202 ==

== ENCOUNTER 2025-02-03 08:44 | Outpatient (REF) | payer MEDICARE, SELFPAY ==
[2025-02-03 14:04] LABS: Influenza A PCR NEGATIVE (Negative); Influenza B PCR NEGATIVE (Negative); Resp Syncy Virus RNA Qual PCR NEGATIVE (Negative); SARS COV2 PCR INHOUSE NEGATIVE (Negative)
== END 2025-02-03 08:45 | disposition home or self-care (01) ==
LOC: HO.LAB 08:44
PROVIDERS: PCP Internal Medicine; Visit Provider Physician Assistant
DX: J06.9 Acute upper respiratory infection, unspecified (principal); R09.89 Other specified symptoms and signs involving the circulatory and respiratory systems
CPT/HCPCS: 0241U; 87880; 99212

== ENCOUNTER 2025-02-03 08:44 | Outpatient (AMB) | payer MEDICARE, SELFPAY ==
--- OUTSIDE RECORDS SUMMARY | 2025-02-03 09:09 | XMS_ITS | Patient Health Record ---
Author Organization [facility] Address [address] [place] [address] Care Team Providers Care Restaurant Manager Name Role Phone Ej Munoz MD Primary Care Provider Unavaila Claudia Thornton Unavailable [phone] Allergies No Known Allergies Reason For Referral [...] Problem Acquired hammer toe of left foot ([id number]) Other hammer toe(s) (acquired), left foot (M20.42) Active confirmed Problem Localized, primary osteoarthritis of the ankle and/or foot (012198422) Arthritis of joint of lesser toe, left (M19.072) Active confirmed Plan Of Treatment Pending Test Test Name Order Date X ray : Foot, left 2V 07/12/2023 60313- Ganglion Cyst Injection/Aspiratio n 07/12/2023 Insurance Providers Payer Name Payer Address Payer Phone Subscriber Number Group Number Insured Name Patient Relationship to Insured Coverage Start Date Coverage End Date Medicare National [employer] [address] [place] [address] [id number] Usha Nico Self - patient is the insured [facility] [address] [place] [address] [phone] [id number] Usha Nico Self - patient is the insured Medical (General) History Medical History History ICD Code CAD (Cholesterol) covid-19 Hiatal hernia Reflux ( GERD) Sciatica chronic sinusitis thyroid High blood pressure Chicken pox Measles Surgical History Surgery Date(Month/Year) appendectomy 1957 tonsillectomy 1966 hernia surgery 2016
--- OUTSIDE RECORDS SUMMARY | 2025-02-03 09:10 | XMS_ITS | Data Portability ---
Author Organization [place] [facility] [place] Address [address] [place] [address] Assessment Encounter Date Assessment Date Assessment LastModified [...] welcome return when he returns back from [place] for further evaluation and treatment. All questions answered to his satisfaction. Patient was seen and evaluated by Hang Bowen PA-C in indirect conjunction with Dr. Bourgeois. The provider agrees with the history, physical examination, recommended tests/diagnosti c imaging, and treatment plan. [email or web address] Not available 11/29/2024 14:28:22 Plan of Treatment Reminders Order Date Submit Date Provider Last Modified By Organization Details Last Modified Time Details Appointments None recorde d. Lab None recorde d. Referral None recorde d. Procedures None recorde d. Surgeries None recorde d. Imaging XR, tibia + fibula, 2 view 025 11/10/19 25 [email or web address] 1 [facility], [address], [place], [address], 08:46:12 Medication Orders None recorde d. Patient TargetsNo targets recorded. Patient Instructions Encounter Date Encounter Id Patient Instructions Last Modified By Organization Details Last Modified Time 11/10/2024 [id number] views of the right tibia and fibula were obtained in the [place] office on 11/10/2024 including AP and lateral. [...] Address Organization Details Recorded Time Appendectomy completed [facility] - [facility], 11/10/2024 09:56:50 tonsillectomy completed [facility] - [facility], P 11/10/2024 09:56:56 Imaging Results Imaging Date Name Status LastModified by [facility] Details LastModified Time 11/10/2024 imaging/diag nostic result [...] Updated DateTime 11/10/2024 177.8 cm 24.4 kg/m2 08643.7 g [facility], 11/10/2024 09:55:33 Social History Question Answer Notes LastModified by Organizat ion Details LastModified Time Tobacco Smoking Status Former Smoker Nat Sims kamini [place] - [facility], [facility] 11/10/2024 09:56:17 What Is Your Level [...] History of cancer of unknown primary site Not available 12/2024 09:56:40 Brother History of cancer of unknown primary site [email or web address] Not available 12/2024 09:56:40 Medical History Condition Response Thyroid Problems Y Reflux/GERD Y Hypertension Y Past Encounters Encounter ID Performer Location Encounter Start Date Encounter Closed Date Diagnosis/Indication Diagnosis SNOMED-CT Code Diagnosis ICD10 Code Diagnosis Note [id number] Danae Bourgeois MD [facility] [address] [place] [id number] 11/10/2024 08:54:38 11/10/2024 10:25:22 Pain in right lower limb [id number] M79.604 Health Concerns Section Related Observation LastModified by Organization Ric ls LastModified Time None Recorded Concern Status LastModified by Organization Details LastModified Time None Recorded Advance Directives Directive None Recorded Payers Encounter Date Sequence Insurance Name Policy Number Policy Reynolds Covered Member ID Reynolds Member ID Guarantor Name 11/10/2024 1 MEDICARE B-CT: NGS Nico Kerr [id number] Nico Kerr 11/10/2024 2 [facility] [id number] Nico Kerr [id number] Nico Kerr Notes Date Note Type Note Provider Name and Address Organization Details Recorded Time 11/10/2024 text/html Patient is a 74-year-old male who presents today with 2 weeks of right calf pain. Symptoms started after he was bowling. He remembers twisting his leg and had some discomfort. He reported intermittent swelling in his calf. He was seen at [facility] emergency room and an ultrasound and x-rays were obtained. They were both reported as negative. Pain is in the lateral calf and ankle. He has a hard time weightbearing at times. Symptoms are not constant. He presents today for orthopedic consultation. Unfortunately, he is leaving in the morning for [place] to go golfing. He denies numbness or tingling in his foot. Past medical history significant for thyroid dysfunction, hypertension and reflux. He is a former smoker. Rare alcohol intake. Denies recreational drug use. HANG BOWEN PA-C [address], [place], [address], [place] [facility] 11/29/2024 14:30:36
--- NOTE | 2025-02-03 09:59 | AM.OFFWIN_ITS ---
Intake Vital Signs 02/03/25 10:04 Weight 171 lb BP 140/90 H Blood Pressure Location Lt brachial Position Sitting Pulse 78 Pulse Source Pulse Oximeter Temp 98.8 F Temp Source Oral Pulse Oximetry (%) 97 Oxygen Delivery Method Room Air Intake Visit Reasons: EP scratchy throat, cough, upper respiratory Intake Note: Patient here for scratchy throat, cough and body aches that has been present for a couple of days. Patient Tobacco Use Status: Former Tobacco user Allergies lisinopril Allergy (Unknown, Verified 02/03/25 10:03) cough Do you need a note to return to daycare/school/sports/work: No HPI HPI Comments History of Present Illness Details History - The patient is a 74-year-old male pres enting with symptoms consistent with an upper respiratory tract infection. - During a recent family trip, the patie nt noticed symptoms similar to those his experienced, which included severe congestion and communicative difficulty. - Symptom onset occurred during this tri p, involving wheezing, persistent cough, particularly nocturnal, and shortness of breath. - He quit smoking in 1993 after a 20-yea r history, with no diagnosis of Chronic Obstructive Pulmonary Disease or asthma. - No reported sinus pain, ear pain, or h eadaches were observed. - Current treatment includes over-the-co unter medications like expectorants with reports of symptomatic relief. Physical Exam General: Cooperative, healthy appearing, comfortable and no acute distress Orientation/consciousness: Patient oriented x3 Limitations: No limitations Head: Normal to inspection Ears: Hearing grossly normal bilaterally, external ears normal and TM's normal bilaterally Nose: Normal external nose present, Normal nares present and No nasal discharge present Face and sinus: Normal facial exam and Yes sinuses nontender Mouth: Normal oral and palatal mucosa present and moist mucous membranes Throat: Yes tonsils normal, Yes uvula midline. Posterior oropharynx erythema Eyes: Appearance normal, both eyes and all related structures Neck: Normal visual inspection Respiratory: Clear to auscultation bilaterally. Normal respiratory effort, able to speak in complete sentences, Actively coughing, no respiratory distress, not tachypneic, no tripod positioning and no use of accessory muscles Cardiovascular: Regular rate and rhythm. Normal S1 and S2 Skin: No rashes or lesions noted Neuro: Patient oriented x3 Extremities: Normal to inspection and Yes no clubbing, cyanosis or edema [facility] Medical History Edema leg History of kidney stones HTN (hypertension) Hyperlipidemia GERD (gastroesophageal reflux disease) Malagon's esophagus Acute sinusitis Screening for colon cancer Hypothyroidism Surgical History Hx of esophagogastroduodenoscopy History of colonoscopy History of inguinal hernia repair History of appendectomy Family History Father Medical history unknown Mother Medical history unknown Family/Other Prostate cancer Colon polyps Social History Housing: House Alcohol intake: current Alcohol intake frequency: a few times a month Patient Tobacco Use Status: Former Tobacco user Tobacco use type: Cigarette e-Cigarette/Vaping Use: Never Used Second Hand Smoke Exposure: Yes service: No Current occupational status: retired Cognitive needs: No Hearing needs: No Vision needs: Yes Review of Systems Const All systems reviewed & are unremarkable except as noted in HPI and below Physical Exam Vital Signs: Last Vital Signs Temp 98.8 F 02/03/25 10:04 Pulse 78 02/03/25 10:04 BP 140/90 H 02/03/25 10:04 Pulse Ox 97 02/03/25 10:04 Oxygen Delivery Method Room Air 02/03/25 10:04 Assessment & Plan Assessment & Plan (1) URI, acute: Code(s): J06.9 - Acute upper respiratory infection, unspecified Plan: VSS, pt well appearing and PE unremarkable. Rapid strep negative. Will treat pt as his is being treated, with Doxycycline. For the patient's upper respiratory tract infection, diagnostic testing including influenza, COVID-19, and RSV will be conducted to ensure thorough evaluation. The continuation of current [id number] expectorants for symptomatic relief is recommended. If symptoms worsen or continue, follow up with PCP or go to the ED. Information pamphlet give to patient with care and when to go to the ED. Patient was informed and verbally consented to the use of an ambient scribe for clinic note documentation during this visit Orders: Orders SARS-CoV2/FLU/RSV Today R09.89 - Other specified symptoms and signs involving the circulatory and respiratory systems Medications: New albuterol sulfate 90 mcg/actuation 2 puffs inhalation Q6H PRN 8.5 grams 0RF shortness of breath or wheezing or cough doxycycline hyclate 100 mg PO BID 14 tabs 0RF benzonatate 200 mg PO BEDTIME PRN 10 caps 0RF cough Coding Level of Care Code Est Pt Level 3 (88580) Diagnoses URI, acute J06.9
[2025-02-03 10:04] VITALS: BP 140/90; PULSE 78; TEMP 37.1; O2SAT 97
== END 2025-02-03 10:43 | disposition home or self-care (01) ==
PROVIDERS: PCP Internal Medicine; Visit Provider Physician Assistant
DX: J06.9 Acute upper respiratory infection, unspecified (principal); Z13.9 Encounter for screening, unspecified

== ENCOUNTER 2025-02-05 08:16 | Outpatient (REF) | payer MEDICARE, SELFPAY ==
--- NOTE | ~2025-02-05 | US_ITS ---
EXAMINATION: US LOWER EXTREMITY VENOUS (REFLUX EXAM), BILATERAL CLINICAL INFORMATION: Varices. COMPARISON: Ultrasound DVT dated December 18, 2024 right lower extremity demonstrated no acute DVT TECHNIQUE: Color flow triplex imaging and compression Doppler was performed to evaluate both the deep and the superficial systems bilaterally. To evaluate the superficial system, the examination was performed in the upright position. Color-flow Doppler ultrasound and compression ultrasound were utilized. In addition, maneuvers were utilized to demonstrate reflux. FINDINGS: 1. DEEP VENOUS ULTRASOUND OF THE RIGHT LOWER EXTREMITY: Common Femoral Vein: Compressible, normal respiratory variation and augmented flow. Femoral Vein: Compressible, normal color flow and augmentation. Popliteal Vein: Compressible, normal augmentation. Deep Reflux: There is no evidence of reflux in the deep system in either the common femoral vein, superficial femoral or the popliteal vein. There is no evidence of a Wadsworth's cyst. 2. SUPERFICIAL ULTRASOUND WITH DOPPLER OF RIGHT LOWER EXTREMITY: GREAT SAPHENOUS VEIN: Saphenofemoral Junction: 0.6 cm; Reflux: 0 ms Proximal Thigh: 0.3 cm; Reflux: 0 ms Mid Thigh: 0.4 cm; Reflux: 0 ms Distal Thigh: 0.3 cm; Reflux: 0 ms At Knee: 0.3 cm; Reflux: 0 ms Proximal Calf: 0.2 cm; Reflux: 0 ms Mid Calf: 0.2 cm; Reflux: 0 ms Distal Calf: 0.3 cm; Reflux: 0 ms DUPLICATED MEDIAL GREAT SAPHENOUS VEIN: Diameter: None imaged Reflux: NA DUPLICATED LATERAL GREAT SAPHENOUS VEIN: Diameter: None imaged Reflux: NA SMALL SAPHENOUS VEIN: Saphenopopliteal Junction: 0.2 cm; Reflux: 0 ms Proximal: 0.2 cm; Reflux: 0 ms Distal: 0.2 cm; Reflux: 0 ms VEIN OF GIACOMINI: Size: NA Reflux: NA PERFORATORS: Location: Small saphenous vein, distal segment and great saphenous vein distal thigh. Size: 0.1-0.2 cm. Reflux: NA VARICOSITIES: Location: Great saphenous vein, proximal and mid thigh. Size: 0.3 cm. Reflux: NA 3. DEEP VENOUS ULTRASOUND OF THE LEFT LOWER EXTREMITY: Common Femoral Vein: Compressible, normal respiratory variation and augmented flow. Femoral Vein: Compressible, normal color flow and augmentation. Popliteal Vein: Compressible, normal augmentation. Deep Reflux: There is no evidence of reflux in the deep system in either the common femoral vein, superficial femoral or the popliteal vein. There is no evidence of a Wadsworth's cyst. 4. SUPERFICIAL ULTRASOUND WITH DOPPLER OF LEFT LOWER EXTREMITY: GREAT SAPHENOUS VEIN: Saphenofemoral Junction: 0.5 cm; Reflux: 0 ms Proximal Thigh: 0.3 cm; Reflux: 0 ms Mid Thigh: 0.2 cm; Reflux: 0 ms Distal Thigh: 0.1 cm; Reflux: 0 ms At Knee: 0.3 cm; Reflux: 0 ms Proximal Calf: 0.2 cm; Reflux: 0 ms Mid Calf: 0.2 cm; Reflux: 0 ms Distal Calf: 0.2 cm; Reflux: 0 ms DUPLICATED MEDIAL GREAT SAPHENOUS VEIN: Diameter: None imaged Reflux: NA DUPLICATED LATERAL GREAT SAPHENOUS VEIN: Diameter: None imaged. Reflux: NA SMALL SAPHENOUS VEIN: Saphenopopliteal Junction: 0.2 cm; Reflux: 0 ms Proximal: 0.1 cm; Reflux: 0 ms Distal: 0.1 cm; Reflux: 0 ms VEIN OF GIACOMINI: Size: NA Reflux: NA PERFORATORS: Location: Great saphenous vein proximal and mid calf segments. Size: 0.2 cm. Reflux: NA VARICOSITIES: Location: None Imaged Size: NA Reflux: NA US/US venous duplex LE BI IMPRESSION: Right: No venous insufficiency. Perforators and varices without reflux. Left: No venous insufficiency. No gross varices. Perforators without reflux. Electronically signed by: Shantanu Houser MD 02/06/2025 08:10 AM EDT
--- OUTSIDE RECORDS SUMMARY | 2025-02-05 08:25 | XMS_ITS | Data Portability ---
Author Organization [facility] [place] Address [address] [place] [address] Assessment Encounter Date Assessment Date Assessment LastModified [...] welcome return when he returns back from [place] for further evaluation and treatment. All questions answered to his satisfaction. Patient was seen and evaluated by Hang Boewn PA-C in indirect conjunction with Dr. Bourgeois. The provider agrees with the history, physical examination, recommended tests/diagnosti c imaging, and treatment plan. [email or web address] Not available 11/29/2024 14:28:22 Plan of Treatment Reminders Order Date Submit Date Provider Last Modified By Organization Details Last Modified Time Details Appointments None recorde d. Lab None recorde d. Referral None recorde d. Procedures None recorde d. Surgeries None recorde d. Imaging XR, tibia + fibula, 2 view 025 11/10/19 25 [email or web address] 1 [facility], [address], [place], [address], 08:46:12 Medication Orders None recorde d. Patient TargetsNo targets recorded. Patient Instructions Encounter Date Encounter Id Patient Instructions Last Modified By Organization Details Last Modified Time 11/10/2024 [id number] 2 views of the right tibia and fibula were obtained in the [place] office on 11/10/2024 including AP and lateral. [...] Address Organization Details Recorded Time Appendectomy completed [facility] - [facility], 11/10/2024 09:56:50 tonsillectomy completed [facility] - [facility], P 11/10/2024 09:56:56 Imaging Results Imaging Date Name Status LastModified by [facility] Details LastModified Time 11/10/2024 imaging/diag nostic result [...] Updated DateTime 11/10/2024 177.8 cm 24.4 kg/m2 36737.[address] [facility], 11/10/2024 09:55:33 Social History Question Answer Notes LastModified by Organizat ion Details LastModified Time Tobacco Smoking Status Former Smoker Nat Sims kamini [place] [facility], [facility] 11/10/2024 09:56:17 What Is Your Level [...] SNOMED-CT Code Diagnosis ICD10 Code Diagnosis Note [id number] HANG BOWEN PA-C [facility] [address] [place] [id number] 11/10/2024 08:54:38 11/10/2024 10:25:22 Pain in right lower limb [id number] M79.604 Health Concerns Section Related Observation LastModified by Organization Detai ls LastModified Time None Recorded Concern Status LastModified by Organization Details LastModified Time None Recorded Advance Directives Directive None Recorded Payers Encounter Date Sequence Insurance Name Policy Number Policy Reynolds Covered Member ID Reynolds Member ID Guarantor Name 11/10/2024 1 MEDICARE B-CT: NGS iNco Kerr [id number] Nico Kerr 11/10/2024 2 [facility] [id number] Nico Kerr [id number] Nico Kerr Notes Date Note Type Note Provider Name and Address Organization Details Recorded Time 11/10/2024 text/html Patient is a 74-year-old male who presents today with 2 weeks of right calf pain. Symptoms started after he was bowling. He remembers twisting his leg and had some discomfort. He reported intermittent swelling in his calf. He was seen at [facility] emergency room and an ultrasound and x-rays were obtained. They were both reported as negative. Pain is in the lateral calf and ankle. He has a hard time weightbearing at times. Symptoms are not constant. He presents today for orthopedic consultation. Unfortunately, he is leaving in the morning for [place] to go golfing. He denies numbness or tingling in his foot. Past medical history significant for thyroid dysfunction, hypertension and reflux. He is a former smoker. Rare alcohol intake. Denies recreational drug use. HANG BOWEN PA-C [address], [place], [address], [place] [facility] 11/29/2024 14:30:36
--- OUTSIDE RECORDS SUMMARY | 2025-02-05 08:25 | XMS_ITS | Patient Health Record ---
Author Organization [facility] Address [address] [place] [address] Care Team Providers Care Legal Investigator Name Role Phone Ej Munoz MD Primary Care Provider Unavaila Claudia Thornton Unavailable [phone] Allergies No Known Allergies Reason For Referral [...] Problem Acquired hammer toe of left foot ([id number]) Other hammer toe(s) (acquired), left foot (M20.42) Active confirmed Problem Localized, primary osteoarthritis of the ankle and/or foot (576062025) Arthritis of joint of lesser toe, left (M19.072) Active confirmed Plan Of Treatment Pending Test Test Name Order Date X ray : Foot, left 2V 07/12/2023 14385- Ganglion Cyst Injection/Aspiratio n 07/12/2023 Insurance Providers Payer Name Payer Address Payer Phone Subscriber Number Group Number Insured Name Patient Relationship to Insured Coverage Start Date Coverage End Date Medicare National Gov[employer] Sv[employer] [address] [place] [address] [id number] Usha Nico Self - patient is the insured [facility] [address] [place] [address] [id number] Usha Nico Self - patient is the insured Medical (General) History Medical History History ICD Code CAD (Cholesterol) covid-19 Hiatal hernia Reflux ( GERD) Sciatica chronic sinusitis thyroid High blood pressure Chicken pox Measles Surgical History Surgery Date(Month/Year) appendectomy 1957 tonsillectomy 1966 hernia surgery 2016
== END 2025-02-05 08:17 | disposition home or self-care (01) ==
LOC: HO.US 08:16
PROVIDERS: PCP Internal Medicine; Visit Provider Physician Assistant Surgical
DX: I83.11 Varicose veins of right lower extremity with inflammation (principal)
CPT/HCPCS: 93970

== ENCOUNTER → 2025-02-05 08:18 | Outpatient (BNV) | payer MEDICARE, SELFPAY | PROVIDERS: PCP Internal Medicine; Visit Provider Radiology Diagnostic Radiology | DX: I83.91 Asymptomatic varicose veins of right lower extremity (principal) | CPT/HCPCS: 93970 ==

== ENCOUNTER 2025-02-09 08:30 | Outpatient (AMB) | payer MEDICARE, SELFPAY ==
--- OUTSIDE RECORDS SUMMARY | 2025-02-09 08:49 | XMS_ITS | Data Portability ---
Author Organization [place] [facility] [place] Address [address] [place] [address] Assessment Encounter Date Assessment Date Assessment LastModified [...] welcome return when he returns back from [place] for further evaluation and treatment. All questions answered to his satisfaction. Patient was seen and evaluated by Hang Bowen PA-C in indirect conjunction with Dr. Bourgeois. The provider agrees with the history, physical examination, recommended tests/diagnosti c imaging, and treatment plan. [email or web address] Not available 11/29/2024 14:28:22 Plan of Treatment Reminders Order Date Submit Date Provider Last Modified By Organization Details Last Modified Time Details Appointments None recorde d. Lab None recorde d. Referral None recorde d. Procedures None recorde d. Surgeries None recorde d. Imaging XR, tibia + fibula, 2 view 025 11/10/19 25 [email or web address] 1 [facility], [address], [place], [address], 08:46:12 Medication Orders None recorde d. Patient TargetsNo targets recorded. Patient Instructions Encounter Date Encounter Id Patient Instructions Last Modified By Organization Details Last Modified Time 11/10/2024 [id number] 2 views of the right tibia and fibula were obtained in the [place] office on 11/10/2024 including AP and lateral. [...] Address Organization Details Recorded Time Appendectomy completed [facility] - [facility], 11/10/2024 09:56:50 tonsillectomy completed [facility] - [facility], P 11/10/2024 09:56:56 Imaging Results Imaging Date Name Status LastModified by [facility] Details LastModified Time 11/10/2024 imaging/diag nostic result [...] Updated DateTime 11/10/2024 177.8 cm 24.4 kg/m2 23207.7 [facility], 11/10/2024 09:55:33 Social History Question Answer Notes LastModified by Organizat ion Details LastModified Time Tobacco Smoking Status Former Smoker Nat Sims kamini [place] [facility] 11/10/2024 09:56:17 What Is Your Level [...] SNOMED-CT Code Diagnosis ICD10 Code Diagnosis Note [id number] HANG BOWEN PA-C [facility] [address] [place] [id number] 11/10/2024 08:54:38 11/10/2024 10:25:22 Pain in right lower limb 166433014 M79.604 Health Concerns Section Related Observation LastModified by Organization Detai ls LastModified Time None Recorded Concern Status LastModified by Organization Details LastModified Time None Recorded Advance Directives Directive None Recorded Payers Encounter Date Sequence Insurance Name Policy Number Policy Reynolds Covered Member ID Reynolds Member ID Guarantor Name 11/10/2024 2 [place] [id number] Nico Kerr [id number] Nico Kerr 11/10/2024 1 [place]: [place] Nico Kerr [id number] Nico Kerr Notes Date Note Type Note Provider Name and Address Organization Details Recorded Time 11/10/2024 text/html Patient is a 74-year-old male who presents today with 2 weeks of right calf pain. Symptoms started after he was bowling. He remembers twisting his leg and had some discomfort. He reported intermittent swelling in his calf. He was seen at [facility] emergency room and an ultrasound and x-rays were obtained. They were both reported as negative. Pain is in the lateral calf and ankle. He has a hard time weightbearing at times. Symptoms are not constant. He presents today for orthopedic consultation. Unfortunately, he is leaving in the morning for [place] to go golfing. He denies numbness or tingling in his foot. Past medical history significant for thyroid dysfunction, hypertension and reflux. He is a former smoker. Rare alcohol intake. Denies recreational drug use. HANG BOWEN PA-C [address], [place], [address], [place] [facility] 11/29/2024 14:30:36
--- OUTSIDE RECORDS SUMMARY | 2025-02-09 08:49 | XMS_ITS | Patient Health Record ---
Author Organization [facility] Address [address] [place] [address] Care Team Providers Care Culturist Name Role Phone Ej Munoz MD Primary Care Provider Unavaila Claudia Thornton Unavailable [phone] Allergies No Known Allergies Reason For Referral [...] Problem Acquired hammer toe of left foot (4725947200010 103) Other hammer toe(s) (acquired), left foot (M20.42) Active confirmed Problem Arthritis of joint of lesser toe, left (M19.072) Active confirmed Plan Of Treatment Pending Test Test Name Order Date X ray : Foot, left 2V 07/12/2023- Ganglion Cyst Injection/Aspiratio n 07/12/2023 Insurance Providers Payer Name Payer Address Payer Phone Subscriber Number Group Number Insured Name Patient Relationship to Insured Coverage Start Date Coverage End Date Medicare National Govt S[employer] [address] [place] [address] [id number] Nico Kerr Self - patient is the insured [employer] [facility] [address] [place] [address] [phone] [id number] Nico Kerr Self - patient is the insured Medical (General) History Medical History History ICD Code CAD (Cholesterol) covid-19 Hiatal hernia Reflux ( GERD) Sciatica chronic sinusitis thyroid High blood pressure Chicken pox Measles Surgical History Surgery Date(Month/Year) appendectomy 1957 tonsillectomy 1965 hernia surgery 2016
--- OUTSIDE RECORDS SUMMARY | 2025-02-09 08:49 | XMS_ITS | Patient Health Record ---
Author Organization [facility] Address [address] [place] [id number] Care Team Providers Care Sand Mixer Operator Name Role Phone Ej Munoz MD Primary Care Provider Marka Jean-Pierre Reilly Unavailable [phone] Reason For Referral No Information Medications Medication [...] Problem Status W/U Status Risk Notes Problem [id number] Encounter for screening for malignant neoplasm of colon (Z12.11) Active confirmed Problem Esophagitis (47512572) Esophagitis, unspecified (K20.9) Active confirmed Problem 018829444 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) Active confirmed Problem Screening for malignant neoplasm of rectum (771378481) Encounter for screening for malignant neoplasm of rectum (Z12.12) Active confirmed Problem 180854018 Gastroesophageal reflux disease without esophagitis (K21.9) Active confirmed Problem History of polyp of colon (situation) (705934492) History of colon polyps (Z86.010) Active confirmed Problem Gastric polyp (85567195) Gastric polyp (K31.7) Active confirmed Problem 237498734 Hx of adenomatou s colonic polyps (Z86.010) Active confirmed Problem Malagon esophagus (192655403) Malagon esophagus (K22.70) Active confirmed Problem Esophageal reflux finding (265696575) Gastroesophageal reflux (K21.9) Active confirmed Problem Diverticulosis of colon (534202604) Diverticulosis of colon (K57.30) Active confirmed Plan [...] Date MEDICARE OF [place] [address] [place] [address] [id number] DARRELL SELBY Self - patient is the insured [employer] CLAIMS [address] [place] [address] [phone] [id number] SOLADARRELL MCFARLAND Self - patient is the insured Medical (General) History Medical History History ICD Code Malagon's and GERD--EGD in J anuary 2010 and in 2015 revealed a small hiatal hernia, small area of Malagon's esophagus without dysplasia, and no esophagitis; benign gastric polyps Hyperlipidemia Tubular adenoma removed in --he was also noted to have some mild diverticulosis and internal hemorrhoids HTN Hypothyroidism Denies MA,DM,CVA,Lung disease,renal dise ase Kidney stone Colonoscopy December of 2015 with removal o f a small tubular adenoma Surgical History Surgery Date(Month/Year) Appendectomy Tonsillectomy and adenoidectomy Inguinal hernia
[2025-02-09 09:16] VITALS: BP 138/90; PULSE 92; TEMP 36.9; O2SAT 98
--- NOTE | 2025-02-09 09:16 | AM.OFFWIN_ITS ---
Intake Vital Signs 02/09/25 09:16 Weight 171 lb BP 138/90 H Blood Pressure Location Rt brachial Position Sitting Pulse 92 Pulse Source Pulse Oximeter Temp 98.4 F Temp Source Oral Pulse Oximetry (%) 98 Oxygen Delivery Method Room Air Intake Visit Reasons: EP-cough Intake Note: P Patient Tobacco Use Status: Former Tobacco user Allergies lisinopril Allergy (Unknown, Verified 02/03/25 10:03) cough HPI HPI Comments History of Present Illness Details The patient is a 74-year-old male presenting with symptoms related to a persistent and severe cough. Symptomatology began before a family trip, worsening over time to include significant nighttime cough and voice deterioration. There is a report of aggravation of the symptoms upon laying down, which was somewhat relieved by elevating the head. His 's prior diagnosis and their children's similar symptoms suggest a familial or exposure context. The patient's previous doxycycline course was insufficient, requiring an extension for effective treatment. A deviated septum complicates respiratory comfort. The patient values reliable medical advice from trusted practitioners and has expressed frustration at reduced access to such care following doctor transitions. Patient was evaluated at walk-in 1 week ago, started on 7 day course of Doxy. he is requesting additional 3 days of medication to treat Pertussis as this is what his is being treated for currently. - Onset and Timing: Began before a recen t family trip and persisted throughout. - Quality and Character: Persistent coug h, voice changes with severity requiring head elevation at night. - Primary Location: Likely within the up per respiratory tract. - Areas of Radiation: Symptoms involve b oth a cough and partial voice loss. - Exacerbating Factors: Lying down incre ases cough severity during the night- time. - Relieving Factors: Propping up head al leviates some symptoms, voice loss improved post trip. - Affect: No specific mood impact discus sed; frustrations expressed related to access to care. - Analgesia: Currently taking doxycyclin e, with ongoing cough symptoms; requests more to complete a 10-day course. - Adverse Effects: None discussed regard ing current medications. - Activities of Daily Living: Night-time discomfort affecting sleep through persistent coughing. - Aberrant Drug Related Behaviors: No in appropriate medication use reported or observed. [facility] Medical History Edema leg History of kidney stones HTN (hypertension) Hyperlipidemia GERD (gastroesophageal reflux disease) Malagon's esophagus Acute sinusitis Screening for colon cancer Hypothyroidism Surgical History Hx of esophagogastroduodenoscopy History of colonoscopy History of inguinal hernia repair History of appendectomy Family History Father Medical history unknown Mother Medical history unknown Family/Other Prostate cancer Colon polyps Social History Housing: House Alcohol intake: current Alcohol intake frequency: a few times a month Patient Tobacco Use Status: Former Tobacco user Tobacco use type: Cigarette e-Cigarette/Vaping Use: Never Used Second Hand Smoke Exposure: Yes service: No Current occupational status: retired Cognitive needs: No Hearing needs: No Vision needs: Yes Review of Systems Const Details: - Respiratory: Reports persistent cough, voice changes, dyspnea on lying down. - General: Denies any other systemic symptoms discussed. Physical Exam Vital Signs: Last Vital Signs Temp 98.4 F 02/09/25 09:16 Pulse 92 02/09/25 09:16 BP 138/90 H 02/09/25 09:16 Pulse Ox 98 02/09/25 09:16 Oxygen Delivery Method Room Air 02/09/25 09:16 General: awake, alert, oriented. Answers questions appropriately. Fully engaged in examination. Skin: warm, dry, intact HEENT: TMs intact bilaterally, no redness. Posterior pharynx without erythema or exudate. Sclera without icterus or injection. Cardiac: External chest normal in appearance. Respiratory: LSCTAB. Resp eval and unlabored. Abdomen: without gross distension. Neurological: Oriented to person, place, time and situation. Thought process intact. Psychiatric: Appropriate mood and affect. Good judgment and insight. Results Reviewed Results Reviewed: 1 week ago tested negative for Covid, flu, RSV and strep. Assessment & Plan Assessment & Plan (1) URI, acute: Code(s): J06.9 - Acute upper respiratory infection, unspecified Plan I have prescribed a three-day extension to the doxycycline regimen to complete the necessary 10-day course. The importance of continuing observation of cough resolution and respiratory symptoms was stressed. I instructed the patient to seek immediate care for any escalation of symptoms such as severe dyspnea or increased chest pain, emphasizing the risks of untreated whooping cough complications. We reviewed the symptoms timeline and concurred that symptoms have not fully resolved, warranting precise antibiotic extension. I informed the patient about potential risks of pertussis, reiterating the benefits of completing antibiotic treatment and importance of monitoring any adverse changes. Agreement was reached on extending doxycycline treatment, while advising on emergency symptoms requiring urgent care. I outlined expectations for symptom resolution and necessity for follow-up should symptoms persist or worsen. Patient was informed and verbally consented to the use of an ambient scribe for clinic note documentation during this visit. Medications: Refilled doxycycline hyclate 100 mg PO BID 6 tabs 0RF Patient Instructions: - Continue taking doxycycline for an additional 3 days as prescribed. - Monitor for any worsening of symptoms, such as increased shortness of breath or chest pain, and seek immediate medical attention if these occur. - Raise your head at night to help alleviate coughing. - Make a note to follow up with your healthcare provider if the cough or other symptoms persist beyond the treatment completion. Coding Level of Care Code Est Pt Level 3 (03732) Diagnoses URI, acute J06.9
== END 2025-02-09 09:53 | disposition home or self-care (01) ==
PROVIDERS: PCP Internal Medicine; Visit Provider Registered Nurse Emergency
DX: J06.9 Acute upper respiratory infection, unspecified (principal)
CPT/HCPCS: 99213

== ENCOUNTER → 2025-02-09 08:30 | Outpatient (BNVA) | payer MEDICARE, SELFPAY | PROVIDERS: PCP Internal Medicine; Visit Provider Registered Nurse Emergency | DX: J06.9 Acute upper respiratory infection, unspecified (principal) | CPT/HCPCS: 99212 ==

== ENCOUNTER 2025-02-26 10:18 | Outpatient (AMB) | payer MEDICARE, SELFPAY ==
--- NOTE | 2025-02-26 10:22 | MHC.OFFVIS ---
Intake Visit Reasons: follow up s/p [facility] 02/05/25 Intake Note: Patient presents for follow up [facility]. Legs have not been swelling the last few weeks , he has been wearing compression socks. Accompanied by: Spouse Allergies lisinopril Allergy (Unknown, Verified 02/03/25 10:03) cough HPI HPI follow up s/p [facility] 02/05/25: Details: Nico is presenting today with his for a follow up to [facility], performed on 02/05/25. He continues to endorse swelling and pain, mostly on the right lower extremity. He continues with compression socks, elevation, and physical activity; he is golfing when he can. He recently went to [place] with family and wore his socks daily and continued to have swelling of the leg. He has no new concerns today. [facility] Medical History Edema leg History of kidney stones HTN (hypertension) Hyperlipidemia GERD (gastroesophageal reflux disease) Malagon's esophagus Acute sinusitis Screening for colon cancer Hypothyroidism Surgical History Hx of esophagogastroduodenoscopy History of colonoscopy History of inguinal hernia repair History of appendectomy Family History Father Medical history unknown Mother Medical history unknown Family/Other Prostate cancer Colon polyps Social History Housing: House Alcohol intake: current Alcohol intake frequency: a few times a month Patient Tobacco Use Status: Former Tobacco user Tobacco use type: Cigarette e-Cigarette/Vaping Use: Never Used Second Hand Smoke Exposure: Yes service: No Current occupational status: retired Cognitive needs: No Hearing needs: No Vision needs: Yes Review of Systems Const Reports as per HPI and Denies weakness ENT Reports Normal hearing present and Denies dizziness Card Reports as per HPI, Denies chest pain, Denies chest pain at rest, Denies chest pain with activity, Denies dyspnea and Denies dyspnea on exertion Resp Reports as per HPI, Denies cough, Denies dyspnea and Denies dyspnea on exertion GI Reports as per HPI, Denies abdominal pain, Denies nausea and Denies vomiting Musc Denies numbness Skin/Breast Reports as per HPI, Denies erythema and Denies wounds Neuro Reports Normal hearing present, Denies dizziness, Denies numbness, Denies Sensory deficit (Neuro) and Denies weakness Psych Reports no additional complaints Endo Reports no additional complaints Physical Exam Const General: healthy appearing and no acute distress Orientation/consciousness: patient oriented x3 HEENT Head: Yes normal to inspection Ears: hearing grossly normal bilaterally Mouth: Normal oral and palatal mucosa present Resp Effort & Inspection: normal respiratory effort and able to speak in complete sentences Auscultation: clear to auscultation bilaterally Cardio Jugular venous distension: no JVD Rate: regular rate Rhythm: regular rhythm Heart sounds: S1 normal heart sound present and S2 normal heart sound present Bruits: no abdominal aortic bruits, no carotid bruits, no femoral bruits and no renal bruits Peripheral pulses: Peripheral pulses 2+ throughout GI Inspection: Yes normal to inspection Palpation (GI): No Abdominal aortic bruit present Skin General skin exam: no rashes or lesions noted Wounds: no wounds Hair: normal Neuro General: patient oriented x3 Cranial nerves: Yes Normal hearing present Cognition (Neuro): normal cognition Gait exam (Neuro): Normal gait present Motor exam (neuro): 5/5 motor strength present throughout Sensory Exam: No Sensory deficit (Neuro) Extrem Other: Right lower extremity: Trace peripheral edema noted. Pain to palpation in the posterior calf, laterally, appx 4cm below the knee; no injuries or bruises noted in the area. No discoloration noted. Palpable DP pulses. No varicosities or tortuosities noted. Right in cm: Thigh 40 Knee 36 Calf 37 Ankle 26 Left in cm: Thigh 40 Knee 36 Calf 37 Ankle 25 General: Yes normal to inspection, Yes full ROM, Yes capillary refill normal and Yes normal gait Results Reviewed Results Reviewed: Brief summary of venous insufficiency testing is as follows: right great saphenous vein: negative right small saphenous vein: negative right accessory vein: none present left great saphenous vein: negative left small saphenous vein: negative left accessory vein: none present Please note there is no evidence of any venous aneurysms or significant tortuosity Assessment & Plan Assessment & Plan (1) Lymphedema: Code(s): I89.0 - Lymphedema, not elsewhere classified Category: Medical Plan: Nico is presenting today for a follow up to [facility], performed on 02/05. There was no insufficiency found. He does continue with swelling and pain, particularly of the right lower extremity despite months of conservative measures. In short the patient has late onset lymphedema. The patient has been on conservative treatment for at least 3 months with minimal relief. starting in Oct 2024. He has tried 30 mm of mercury compression garments, elevation, exercise, healthy diet, and doing manual says self MLD to the best of their ability for over 4+ weeks but with no significant relief. He has been compliant with the program; but it has provided minimal relief. In addition, on physical exam, we are noticing hyperpigmentation, swelling, and hyperplasia. It appears that he has stage 2 lymphedema. Patient has completed multiple forms of conservative therapy, yet significant symptoms remain. Patient requires the use of a pneumatic compression device which we will assist in trying to have the patient obtain them. A pneumatic compression device will help reduce swelling and other lymphedema comorbidities. We will have him attend our lymphedema clinic on April 22. Thank you for allowing us to assist in this patient's care. Coding Level of Care Code Est Pt Level 4 (63967) Diagnoses Lymphedema I89.0 Comment review of US
--- OUTSIDE RECORDS SUMMARY | 2025-02-26 10:48 | XMS_ITS | Patient Health Record ---
Author Organization [facility] Address [address] [place] [address] Care Team Providers Care Can Piler Name Role Phone Ej Munoz MD Primary Care Provider Unavaila Claudia Thornton Unavailable [phone] Allergies No Known Allergies Reason For Referral [...] Problem Acquired hammer toe of left foot ([id number]) Other hammer toe(s) (acquired), left foot [...] Inc [address] [place] [address] [id number] Nico Kerr Self - patient is the insured [employer] [facility] [address] [place] [address] [phone] [id number] Nico Kerr Self - patient is the insured Medical (General) History Medical History History ICD Code CAD (Cholesterol) covid-19 Hiatal hernia Reflux ( GERD) Sciatica chronic sinusitis thyroid High blood pressure Chicken pox Measles Surgical History Surgery Date(Month/Year) appendectomy 1957 tonsillectomy 1965 hernia surgery 2016
--- OUTSIDE RECORDS SUMMARY | 2025-02-26 10:48 | XMS_ITS | Patient Health Record ---
Author Organization [facility] Address [address] [place] [address] Care Team Providers Care City Carrier Assistant Name Role Phone Ej Munoz MD Primary Care Provider Marka Jean-Pierre Reilly Unavailable [phone] Reason For Referral No Information Medications Medication [...] Problem Status W/U Status Risk Notes Problem 575147133 Encounter for screening for malignant neoplasm of colon (Z12.11) Active confirmed Problem Esophagitis (04373923) Esophagitis, unspecified (K20.9) Active confirmed Problem 736323286 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) Active confirmed Problem Screening for malignant neoplasm of rectum (926305229) Encounter for screening for malignant neoplasm of rectum (Z12.12) Active confirmed Problem 857777087 Gastroesophageal reflux disease without esophagitis (K21.9) Active confirmed Problem History of polyp of colon (situation) (619653835) History of colon polyps (Z86.010) Active confirmed Problem Gastric polyp (49502373) Gastric polyp (K31.7) Active confirmed Problem 056409134 Hx of adenomatou s colonic polyps (Z86.010) Active confirmed Problem Malagon esophagus (013879587) Malagon esophagus (K22.70) Active confirmed Problem Esophageal reflux finding (203565231) Gastroesophageal reflux (K21.9) Active confirmed Problem Diverticulosis of colon (736537676) Diverticulosis of colon (K57.30) Active confirmed Plan [...] [place] [address] [place] [address] [id number] DARRELL SELBY Self - patient is the insured [employer] CLAIMS [address] [place] [address] [id number] SOLADARRELL MCFARLAND Self - patient is the [...]
== END 2025-02-26 10:52 | disposition home or self-care (01) ==
LOC: HO.HVS 10:19
PROVIDERS: PCP Internal Medicine; Visit Provider Physician Assistant Surgical
DX: I89.0 Lymphedema, not elsewhere classified (principal)
CPT/HCPCS: 99214

== ENCOUNTER → 2025-02-26 10:18 | Outpatient (BNVA) | payer MEDICARE, SELFPAY | PROVIDERS: PCP Internal Medicine; Visit Provider Physician Assistant Surgical | DX: I89.0 Lymphedema, not elsewhere classified (principal) | CPT/HCPCS: 99212 ==

== ENCOUNTER 2025-04-27 08:47 | Outpatient (REF) | payer MEDICARE, SELFPAY ==
--- NOTE | ~2025-04-27 | XR_ITS ---
CLINICAL HISTORY: M25.849 - Other specified joint disorders, unspecified hand 3 view right hand Comparison: None provided Findings: No acute fracture. Small chronic bone fragment adjacent to the 1st interphalangeal joint. No dislocation. Mild arthritic change No erosions. No radiopaque foreign body. IMPRESSION: 1. No acute findings This document has been electronically signed by: Tabitha Chavez MD on 04/28/2025 15:18:09
[2025-04-27 12:09] LABS: Thyroid Stimulating Hormone 0.10 uIU/mL (0.32-4.0)
== END 2025-04-27 08:48 | disposition home or self-care (01) ==
LOC: HO.XRAY 08:47
PROVIDERS: PCP Internal Medicine; Visit Provider Internal Medicine
DX: Z76.89 Persons encountering health services in other specified circumstances (principal); Z23 Encounter for immunization; I10 Essential (primary) hypertension; E78.00 Pure hypercholesterolemia, unspecified; E03.9 Hypothyroidism, unspecified; H91.90 Unspecified hearing loss, unspecified ear; K22.70 Barrett's esophagus without dysplasia; M25.849 Other specified joint disorders, unspecified hand; M54.32 Sciatica, left side; Z79.899 Other long term (current) drug therapy; Z13.31 Encounter for screening for depression; Z13.30 Encounter for screening examination for mental health and behavioral disorders, unspecified
CPT/HCPCS: 36415; 73130; 84443; 90471; 90677; 96127; 99212

== ENCOUNTER 2025-04-27 08:47 | Outpatient (AMB) | payer MEDICARE, SELFPAY ==
--- NOTE | 2025-04-27 08:49 | A.OFFPC_ITS ---
Vital Signs 04/27/25 08:50 Height 5 ft 10 in Weight 166 lb BMI 23.8 BP 140/86 H Blood Pressure Location Lt brachial Position Sitting Intake Visit Reasons: Transfer of Care from Dr. 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 Required: No Accompanied by: Self / Same As Patient Allergies lisinopril Allergy (Unknown, Verified 04/27/25 09:06) cough Medication List - Last Reconciled 04/27/25 by Johanna Plascencia MD albuterol sulfate 90 mcg/actuation 2 puffs inhalation Q6H PRN amlodipine 5 mg PO ONCE atorvastatin 10 mg PO DAILY cyclobenzaprine 10 mg PO TID PRN 10 days famotidine 20 mg PO DAILY levothyroxine 100 mcg PO DAILY naproxen 500 mg PO BID PRN Tobacco use date assessed: 04/27/25 Fall risk assessment: No Falls in past year Last assessed Fall Risk: 04/27/25 Dental Screening Dental Screen Date: 10/28/24 HPI HPI Comments History of Present Illness Details The patient is a 75-year-old male presenting to [facility] care and manage chronic conditions including hypertension, hypercholesterolemia, and hypothyroidism. His hypertension is currently not well-controlled, as evidenced by elevated blood pressure readings today. The plan includes increasing amlodipine from 5 mg to 10 mg and rechecking blood pressure in three weeks with the nurse navigator. The patient has a history of pure hypercholesterolemia, which is part of his chronic condition management. He also has hypothyroidism, with the last thyroid- stimulating hormone (TSH) level being normal in October. A repeat TSH test is planned for today to monitor thyroid function. The patient reports chronic gastroesophageal reflux disease (GERD) and Malagon's esophagus, with the last endoscopy performed in 2021. He experiences occasional epigastric pain and takes famotidine 20 mg daily for symptom management. An upper GI series is ordered to further evaluate his symptoms. He has a history of sciatica, for which he uses naproxen as needed. Additionally, he reports tinnitus and was previously referred to speech and he aring due to hearing loss last year. A referral to speech and hearing is planned again. The patient also mentions a lump in his right thumb, prompting an order for an x-ray and a referral to hand surgery for evaluation. He is uncertain about his last tetanus vaccination, and pneumococcal vaccination (PCV 20) is planned for today. PFSH Medical History (Updated 04/27/25 @ 11:01 by Johanna Plascencia MD) Edema leg History of kidney stones HTN (hypertension) Hyperlipidemia GERD (gastroesophageal reflux disease) Malagon's esophagus Acute sinusitis Screening for colon cancer Hypothyroidism Surgical History Hx of esophagogastroduodenoscopy History of colonoscopy History of inguinal hernia repair History of appendectomy Family History Father Medical history unknown Mother Medical history unknown Family/Other Prostate cancer Colon polyps Social History Housing: House Alcohol intake: current Alcohol intake frequency: a few times a month Patient Tobacco Use Status: Former Tobacco user Tobacco use type: Cigarette e-Cigarette/Vaping Use: Never Used Second Hand Smoke Exposure: Yes service: No Current occupational status: retired Cognitive needs: No Hearing needs: No Vision needs: Yes Questionnaire PHQ-9 Over the last 2 weeks, how often have you been bothered by any of the following problems? 1. Little interest or pleasure in doing things: not at all 2. Feeling down, depressed, or hopeless: not at all 3. Trouble falling or staying asleep, or sleeping too much: not at all 4. Feeling tired or having little energy: not at all 5. Poor appetite or overeating: not at all 6. Feeling bad about yourself - or that you are a failure or have let yourself or your family down: not at all 7. Trouble concentrating on things, such as reading the newspaper or watching television: not at all 8. Moving or speaking so slowly that other people could have noticed. Or the opposite - being so fidgety or restless that you have been moving around a lot more than usual: not at all 9. Thoughts that you would be better off or of hurting yourself in some way: not at all Total score: 0 Depression Screening Interpretation: Negative Depression Screening Done: Yes 66476 - PHQ-9 Billing: Yes Source: Developed by Drs. Jean-Pierre Tilley, Julia David, Kalia Jimenez and colleagues, with an educational trey from [employer]. Thrive Questionnaire Date Thrive assessed: 04/20/25 I am a: Patient What is your living situation today?: I have a steady place to live Within the past 12 months, did the food you bought not last and you didn't have the money to get more?: Never true Within the past 12 months, did you worry whether your food would run out before you got money to buy more?: Never true Do you have trouble paying for medicines?: No Do you have trouble getting transportation to medical appointments?: No Do you have trouble paying your heating and electricity bill?: No Do you have trouble taking care of your child, family member or friend?: No Do you have trouble with day-to-day activities such as bathing, preparing meals, shopping, managing finances, etc.?: No Are you currently unemployed and looking for a job?: No Are you interested in more education?: No Please select the resources that you would like help with: None Currently or been in a relationship where the following occur: No concerns reported THRIVE Score: 0 AUDIT C Alcohol Use Questionnaire (AUDIT-C) 1. How often do you have a drink containing alcohol?: Monthly or less 2. How many drinks containing alcohol do you have on a typical day when you are drinking?: 1 or 2 3. How often do you have six or more drinks on one occasion?: Never Total Score: 1 Score Reviewed/Action Taken: No BLAISE-7 AMB Questionnaire BLAISE-7 Date BLAISE - 7 assessed: 04/27/25 Feeling nervous, anxious, or on edge: 0 = Not at all Not being able to stop or control worryin = Not at all Worrying too much about different things: 0 = Not at all Trouble relaxin = Not at all Being so restless that it is hard to sit still: 0 = Not at all Becoming easily annoyed or irritable: 0 = Not at all Feeling afraid as if something awful might happen: 0 = Not at all Total BLAISE-7 score (0-4 normal; 5-9 mild; 10-14 moderate; 15-21 severe): 0 Source: Developed by Drs. Jean-Pierre Tilley, Julia David, Kalia Jimenez and colleagues, with an educational trey from [employer]. BLAISE-7 Assessment Billing BLAISE-7 Assessment Tool: BLAISE-7 Assessment 06821 Review of Systems Const All systems reviewed & are unremarkable except as noted in HPI and below Card Denies chest pain at rest, Denies chest pain with activity, Denies edema, Denies irregular heart rhythm, Denies claudication, Denies dyspnea, Denies dyspnea on exertion, Denies orthopnea, Denies paroxysmal nocturnal dyspnea and Denies slow heart rate Resp Denies cough, Denies dyspnea and Denies dyspnea on exertion GI Denies abdominal pain, Denies change in bowel habits, Denies excessive flatus, Denies nausea and Denies vomiting Denies urinary hesitancy, Denies urinary incontinence and Denies urinary urgency Musc Denies abnormal gait, Denies atrophy, Denies deformity and Denies limited range of motion Skin/Breast Denies bleeding lesions, Denies changing lesions and Denies rash Neuro Denies abnormal gait and Denies lack of coordination Physical exam (Primary Care) Vital Signs: Last Vital Signs BP 140/86 H 04/27/25 08:50 BMI result Body Mass Index 23.8 Tobacco/Smoking Status: Tobacco use Status Tobacco use date assessed 04/27/25 04/27/25 08:55 Patient Tobacco Use Status Former Tobacco user 04/27/25 08:55 Tobacco use type Cigarette 04/27/25 08:55 e-Cigarette/Vaping Use Never Used 04/27/25 08:55 PHQ-9: PHQ-9 Score PHQ-9: Total score 0 04/27/25 09:35 Depression Screening Interpretation: Negative Thrive Assessment: Date of Thrive Assessment Date Thrive assessed 04/20/25 04/27/25 08:55 Currently or been in a relationship where the following occur: No concerns reported Resp Effort & Inspection: normal respiratory effort Auscultation: clear to auscultation bilaterally Cardio Jugular venous distension: no JVD Rate: regular rate Heart sounds: S1 normal heart sound present and S2 normal heart sound present Extrem General: Yes full ROM Immunizations pneumoc 20-lalo conj-dip cr(PF) 0.5 mL IM syringe Performing Provider: Johanna Plascencia MD Performing Location: [facility] Administered by: REGGIE Pruett on 04/27/25 09:35 Dose Route Admin Location Dispensed Lot Number Expiration Date [facility] Np 0.5 mL IM Left Deltoid 0.5 mL [id number] 04/07/26 7053-3671-25 [employer] Total Dispensed Waste 0.5 mL 0 % VIS Given Date VIS Provided VIS Publication Date 04/27/25 Single Vaccine 25 Eligibility Eligibility Date Funding Source Not [facility] Eligible 04/27/25 Private Coding Level of Care Code Est Pt Level 4 (51334) Complex EM visit Add On G2211 Diagnoses Essential hypertension I10 Pure hypercholesterolemia E78.00 Hypothyroidism, unspecified type E03.9 Hypothyroidism type: unspecified Hearing loss H91.90 Malagon's esophagus K22.70 Cyst of joint of hand M25.849 Left sided sciatica M54.32 Additional Codes BLAISE-7 Assessment Billing - BALISE-7 Assessment Tool: BLAISE-7 Assessment 60123 ([id number]) PHQ-9 - 84780 - PHQ-9 Billing: Yes ([id number]) Time Spent (min) 23 Assessment & Plan Assessment & Plan (1) Essential hypertension: Code(s): I10 - Essential (primary) hypertension Category: Medical (2) Pure hypercholesterolemia: Code(s): E78.00 - Pure hypercholesterolemia, unspecified Category: Medical (3) Hypothyroidism: Comment: 20 min reviewing chart eval patient and documenting Code(s): E03.9 - Hypothyroidism, unspecified Category: Medical Qualifiers: Hypothyroidism type: unspecified Qualified Code(s): E03.9 - Hypothyroidism, unspecified (4) Hearing loss: Code(s): H91.90 - Unspecified hearing loss, unspecified ear Category: Medical (5) Malagon's esophagus: Code(s): K22.70 - Malagon's esophagus without dysplasia Category: Medical (6) Cyst of joint of hand: Code(s): M25.849 - Other specified joint disorders, unspecified hand Category: Medical (7) Left sided sciatica: Code(s): M54.32 - Sciatica, left side Category: Medical Plan The patient's hypertension management will be adjusted by increasing the dose of amlodipine from 5 mg to 10 mg, with a follow-up blood pressure check scheduled in three weeks with the nurse navigator. A repeat TSH test will be conducted today to monitor his hypothyroidism, given the last normal result was in October. For his chronic GERD and Malagon's esophagus, an upper GI series is ordered to further evaluate his symptoms, and he will continue taking famotidine 20 mg daily. The patient will be referred again to speech and hearing for his tinnitus and hearing loss. An x-ray of the right thumb will be performed, and a referral to hand surgery is made for the evaluation of the lump. Preventative care includes administering the pneumococcal vaccination PCV 20) today. Orders: Orders [place] upper GI series Today K21.9 - Gastro-esophageal reflux disease without esophagitis Thyroid Stimulating Hormone Today E03.9 - Hypothyroidism, unspecified Pneumococcal 20 Immunization Today Z23 - Encounter for immunization Lipid Panel 6 Months E78.5 - Hyperlipidemia, unspecified Comprehensive [place]. Panel Fast 6 Months I10 - Essential (primary) hypertension Thyroid Stimulating Hormone 6 Months E03.9 - Hypothyroidism, unspecified Referrals Hand Surgery Referral M25.849 - Other specified joint disorders, unspecified hand Speech and Hearing Referral H91.90 - Unspecified hearing loss, unspecified ear Medications: New amlodipine 10 mg PO DAILY 90 tabs 1RF 90 days Discontinued amlodipine Discontinued Reason: Patient Completed Course 5 mg PO ONCE 90 tabs 3RF
[2025-04-27 08:50] VITALS: BP 140/86; BMI 23.8
--- OUTSIDE RECORDS SUMMARY | 2025-04-27 08:54 | XMS_ITS | Patient Health Record ---
Author Organization [facility] Address [address] [place] [address] Care Team Providers Care Assembly Member Name Role Phone Ej Munoz MD Primary Care Provider Unavaila Claudia Thornton Unavailable [phone] Allergies No Known Allergies Reason For Referral No Information Medications Medication SIG (Take, Route, Frequency, Duration) Notes Start Date End Date Status Famotidine 20 MG TAKE 1 TABLET BY TENISHA TH DAILY Oral; Duration: 90 Days Active Levothyroxine Sodium 100 MCG Oral; Duration: 90 Days Active Atorvastatin Calcium 10 MG TAKE 1 TABLET BY MOUTH EVERY DAY Oral; Duration: 90 Days Not-Taking amLODIPine Besylate 5 MG Oral; Duration: 90 Days Active Social History Tobacco Use: [...] Problem Acquired hammer toe of left foot ([id number] 103) Other hammer toe(s) (acquired), left foot [...] Inc [address] [place] [address] [id number] Usha Nico Self - patient is the insured [employer] [address] [place] [address] [id number] Usha Nico Self - patient is the insured Medical (General) History Medical History History ICD Code CAD (Cholesterol) covid-19 Hiatal hernia Reflux ( GERD) Sciatica chronic sinusitis thyroid High blood pressure Chicken pox Measles Surgical History Surgery Date(Month/Year) appendectomy 1957 tonsillectomy 1965 hernia surgery 2016
--- OUTSIDE RECORDS SUMMARY | 2025-04-27 08:54 | XMS_ITS | Patient Health Record ---
Author Organization [facility] Address [address] [place] [address] Care Team Providers Care Nutritional Services Cook Name Role Phone Ej Munoz MD Primary Care Provider Marka Jean-Pierre Reilly Unavailable [phone] Reason For Referral No Information Medications Medication [...] Problem Status W/U Status Risk Notes Problem 900793267 Encounter for screening for malignant neoplasm of colon (Z12.11) Active confirmed Problem Esophagitis (69376968) Esophagitis, unspecified (K20.9) Active confirmed Problem 192834358 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) Active confirmed Problem Screening for malignant neoplasm of rectum (369690452) Encounter for screening for malignant neoplasm of rectum (Z12.12) Active confirmed Problem 371237642 Gastroesophageal reflux disease without esophagitis (K21.9) Active confirmed Problem History of polyp of colon (situation) (124260122) History of colon polyps (Z86.010) Active confirmed Problem Gastric polyp (73889408) Gastric polyp (K31.7) Active confirmed Problem 063419438 Hx of adenomatou s colonic polyps (Z86.010) Active confirmed Problem Malagon esophagus (110723644) Malagon esophagus (K22.70) Active confirmed Problem Esophageal reflux finding (351145769) Gastroesophageal reflux (K21.9) Active confirmed Problem Diverticulosis of colon (579872379) Diverticulosis of colon (K57.30) Active confirmed Plan [...] [place] [address] [place] [address] [phone] [id number] DARRELL SELBY Self - patient is the insured [employer] CLAIMS [address] [place] [address] [phone] [id number] SOLADARRELL MCFARLAND Self - patient is the [...] diverticulosis and internal hemorrhoids HTN Hypothyroidism Denies UT,DM,CVA,Lung disease,renal dise ase Kidney stone Colonoscopy December of 2015 with removal o f a small tubular adenoma Surgical History Surgery Date(Month/Year) Appendectomy Tonsillectomy and adenoidectomy Inguinal hernia
== END 2025-04-27 09:37 | disposition home or self-care (01) ==
LOC: HO.HMCH 08:48
PROVIDERS: PCP Internal Medicine; Visit Provider Internal Medicine
DX: I10 Essential (primary) hypertension (principal); E78.00 Pure hypercholesterolemia, unspecified; E03.9 Hypothyroidism, unspecified; H91.90 Unspecified hearing loss, unspecified ear; K22.70 Barrett's esophagus without dysplasia; M25.849 Other specified joint disorders, unspecified hand; M54.32 Sciatica, left side; Z23 Encounter for immunization

== ENCOUNTER → 2025-04-27 10:06 | Outpatient (BNV) | payer MEDICARE, SELFPAY | PROVIDERS: PCP Internal Medicine; Visit Provider Radiology Diagnostic Radiology | DX: M25.841 Other specified joint disorders, right hand (principal); M24.041 Loose body in right finger joint(s) | CPT/HCPCS: 73130 ==

== ENCOUNTER 2025-05-28 08:48 | Outpatient (AMB) | payer MEDICARE, SELFPAY ==
[2025-05-28 08:52] VITALS: BMI 23.8
--- NOTE | 2025-05-28 08:52 | A.OFFVIS_ITS ---
Vital Signs 05/28/25 08:52 Height 5 ft 10 in Weight 166 lb BMI 23.8 Intake Visit Reasons: lymphedema follow up Intake Note: lymphedema follow up for Right LE swelling Accompanied by: Self / Same As Patient Allergies lisinopril Allergy (Unknown, Verified 05/28/25 08:53) cough HPI HPI lymphedema follow up: Details: Very pleasant 75-year-old gentleman presents for follow-up evaluation regarding right lower extremity swelling. He notes lower extremity swell in general but right appears to be worse than left. It has been improved with the use of compression but he is quite concerned about this he now presents to us for follow-up evaluation. Of note he did have a trial of lymphedema compression garments and did appear to have improvement with that. PFSH Medical History Edema leg History of kidney stones HTN (hypertension) Hyperlipidemia GERD (gastroesophageal reflux disease) Malagon's esophagus Acute sinusitis Screening for colon cancer Hypothyroidism Surgical History Hx of esophagogastroduodenoscopy History of colonoscopy History of inguinal hernia repair History of appendectomy Family History Father Medical history unknown Mother Medical history unknown Family/Other Prostate cancer Colon polyps Social History Housing: House Alcohol intake: current Alcohol intake frequency: a few times a month Patient Tobacco Use Status: Former Tobacco user Tobacco use type: Cigarette e-Cigarette/Vaping Use: Never Used Second Hand Smoke Exposure: Yes service: No Current occupational status: retired Cognitive needs: No Hearing needs: No Vision needs: Yes Review of Systems Const Reports as per HPI ENT Reports no additional complaints Card Denies chest pain, Denies chest pain at rest and Denies chest pain with activity Resp Denies chest congestion and Denies cough GI Reports no additional complaints Musc Details: pain over varicosities, aching of lower extremities, swelling, cramping, heav iness and tiredness, itching Denies abnormal gait Skin/Breast Reports pruritus and Denies wounds Neuro Reports no additional complaints and Denies abnormal gait Psych Denies no additional complaints Physical Exam Vital Signs: BMI result Body Mass Index 23.8 Const General: cooperative, healthy appearing and comfortable Orientation/consciousness: oriented to person, oriented to place and oriented to time Neck Carotids: no bruits Chest Chest palpation & inspection: normal inspection of the chest and normal palpa tion of entire chest wall Resp Effort & Inspection: normal respiratory effort and able to speak in complete sentences Cardio Rate: regular rate Heart sounds: S1 normal heart sound present and S2 normal heart sound present Peripheral pulses: Peripheral pulses 2+ throughout GI Inspection: Yes normal to inspection Skin Other: +2 edema, large rope-like varicosities greater than 4 mm CEAP Classification C4 - skin color changes Ep - Etiology Primary As - superficial veins P - reflux General skin exam: dry skin Neuro General: oriented to person, oriented to place and oriented to time Extrem Other: Right in cm: Thigh 41 Knee 37 Calf 36 Ankle 20 Left in cm: Thigh 40 Knee 38 Calf 35 Ankle 21 Right lower extremity: full ROM, normal capillary refill and edema Left lower extremity: full ROM, normal capillary refill and edema Psych Mental Status: mental status grossly normal Assessment & Plan Assessment & Plan (1) Lymphedema: Code(s): I89.0 - Lymphedema, not elsewhere classified Category: Medical Plan: In short 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 The patient has been on conservative treatment for at least 3 months with minimal relief. Patient has tried 30 mm of mercury compression garments, elevation, exercise healthy diet and doing manual says self MLD to the best of their ability for over 4 weeks but with no significant relief. He has been compliant with the program but has provided minimal relief. Patient has completed multiple forms of conservative therapy yet significant symptoms remain. Patient requires the use of a home pneumatic compression device. A pneumatic compression device will help reduce swelling and other lymphedema comorbidities. We will try to assist the patient and obtaining these devices. Thank you for allowing us to assist in this patient's care. Coding Level of Care Code Est Pt Level 4 (37047) Diagnoses Lymphedema I89.0
--- OUTSIDE RECORDS SUMMARY | 2025-05-28 09:46 | XMS_ITS | Patient Health Record ---
Author Organization [facility] Address [address] [place] [address] Care Team Providers Care Transition Advisor Name Role Phone Ej Munoz MD Primary Care Provider Unavaila Claudia Thornton Unavailable [phone] Allergies No Known Allergies Reason For Referral [...] Problem Acquired hammer toe of left foot ([id number] 103) Other hammer toe(s) (acquired), left foot [...] Inc [address] [place] [address] [id number] Usha Nico Self - patient is the insured [employer] [address] [place] [address] [id number] Usha Nico Self - patient is the insured Medical (General) History Medical History History ICD Code CAD (Cholesterol) covid-19 Hiatal hernia Reflux ( GERD) Sciatica chronic sinusitis thyroid High blood pressure Chicken pox Measles Surgical History Surgery Date(Month/Year) appendectomy 1957 tonsillectomy 1965 hernia surgery 2016
--- OUTSIDE RECORDS SUMMARY | 2025-05-28 09:47 | XMS_ITS | Patient Health Record ---
Author Organization [facility] Address [address] [place] [id number] Care Team Providers Care Prior Authorization Technician Name Role Phone Ej Munoz MD Primary Care Provider Marka Jean-Pierre Reilly Unavailable [phone] Reason For Referral No Information Medications Medication [...] Problem Status W/U Status Risk Notes Problem [id number] Encounter for screening for malignant neoplasm of colon (Z12.11) Active confirmed Problem Esophagitis (25930091) Esophagitis, unspecified (K20.9) Active confirmed Problem 942220752 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) Active confirmed Problem Screening for malignant neoplasm of rectum (072754245) Encounter for screening for malignant neoplasm of rectum (Z12.12) Active confirmed Problem 246948825 Gastroesophageal reflux disease without esophagitis (K21.9) Active confirmed Problem History of polyp of colon (situation) (448849453) History of colon polyps (Z86.010) Active confirmed Problem Gastric polyp (64218182) Gastric polyp (K31.7) Active confirmed Problem 135067714 Hx of adenomatou s colonic polyps (Z86.010) Active confirmed Problem Malagon esophagus (750847626) Malagon esophagus (K22.70) Active confirmed Problem Esophageal reflux finding (229803463) Gastroesophageal reflux (K21.9) Active confirmed Problem Diverticulosis of colon (201073151) Diverticulosis of colon (K57.30) Active confirmed Plan [...] [place] [address] [place] [address] [id number] DARRELL SELBY Self - patient is the insured [employer] CLAIM[employer] [address] [place] [address] [id number] SOLADARRELL MCFARLAND Self - patient is the [...] diverticulosis and internal hemorrhoids HTN Hypothyroidism Denies IN,DM,CVA,Lung disease,renal dise ase Kidney stone Colonoscopy December of 2015 with removal o f a small tubular adenoma Surgical History Surgery Date(Month/Year) Appendectomy Tonsillectomy and adenoidectomy Inguinal hernia
== END 2025-05-28 09:27 | disposition home or self-care (01) ==
LOC: HO.HVS 08:48
PROVIDERS: PCP Internal Medicine; Visit Provider Surgery Vascular Surgery
DX: I89.0 Lymphedema, not elsewhere classified (principal)
CPT/HCPCS: 99214

== ENCOUNTER → 2025-05-28 08:48 | Outpatient (BNVA) | payer MEDICARE, SELFPAY | PROVIDERS: PCP Internal Medicine; Visit Provider Surgery Vascular Surgery | DX: I89.0 Lymphedema, not elsewhere classified (principal) | CPT/HCPCS: 99212 ==

== ENCOUNTER 2025-08-17 09:47 | Outpatient (REF) | payer MEDICARE, SELFPAY ==
--- NOTE | ~2025-08-17 | FL_ITS ---
EXAMINATION: XR GI SERIES with air contrast. CLINICAL INFORMATION: Gastroesophageal reflux disease. Check. COMPARISON: None available. TECHNIQUE: Routine upper GI air contrast study was done in upright and lying position. FINDINGS: Following oral administration of thick barium and effervescent granules is antegrade propagation bolus from the oral cavity, esophagus into stomach. There is a moderately tight cricoesophageal sphincter narrowing the proximal esophagus. Rest of the esophagus is widely patent. No intrinsic filling defect or extrinsic compression. On placing patient supine and prone lying the course, caliber and peristalsis of the stomach is normal. The mucosal pattern of the stomach, duodenal bulb and the sweep is normal. There is a large gastroesophageal reflux into the upper esophagus with sliding hiatal hernia. . There are increased gastric secretions seen FLUOROSCOPY TIME: 2 minutes and 19 seconds DOSE AREA PRODUCT: 2362 uGy-m2 (microgray-meter squared) FL/FL upper GI series IMPRESSION: Moderately tight cricoesophageal sphincter probably needs dilation. Recommend endoscopy. Large gastroesophageal reflux with small sliding hiatal hernia. Electronically signed by: Dusty Handley MD 08/17/2025 12:19 PM MANDEEP
== END 2025-08-17 09:48 | disposition home or self-care (01) ==
LOC: HO.XRAY 09:47
PROVIDERS: PCP Internal Medicine; Visit Provider Internal Medicine
DX: K21.9 Gastro-esophageal reflux disease without esophagitis (principal)
CPT/HCPCS: 74240

== ENCOUNTER → 2025-08-17 09:48 | Outpatient (BNV) | payer MEDICARE, SELFPAY | PROVIDERS: PCP Internal Medicine; Visit Provider Radiology Diagnostic Radiology | DX: K21.9 Gastro-esophageal reflux disease without esophagitis (principal); K44.9 Diaphragmatic hernia without obstruction or gangrene | CPT/HCPCS: 74246 ==